=== PATIENT | male | born 1970 | race Caucasian/White ===

== ENCOUNTER 2020-02-04 07:56 | Inpatient (IN) | payer OTHER, MEDICAID, SELFPAY ==
[~2020-02-04] VITALS: Ht 172.7 cm; Wt 86.0 kg
[2020-02-04 08:01] VITALS: BP_SYST 119
[2020-02-04 09:32] LABS: BASOPHILS % (AUTO) 0.4 % (0.0-2.0); EOSINOPHILS % (AUTO) 0.4 % (0.0-4.0); HEMATOCRIT 28.1 % (36-54); HEMOGLOBIN 9.6 g/dL (14.0-18.0); LYMPHOCYTES # (AUTO) 0.8 K/uL (1.0-5.5); LYMPHOCYTES % (AUTO) 8.3 % (20.5-51.5); MEAN CORPUSCULAR HEMOGLOBIN 30 pg (27-31); MEAN CORPUSCULAR HGB CONC 34 % (32-36); MEAN CORPUSCULAR VOLUME 87 fL (79.0-98.0); MONOCYTES # (AUTO) 0.6 K/uL (0.0-1.0); MONOCYTES % (AUTO) 6.1 % (1.7-9.3); NEUTROPHILS # (AUTO) 8.1 K/uL (1.8-7.7); NEUTROPHILS % (AUTO) 84.8 % (40.0-70.0); PLATELET COUNT (AUTO) 177 K/uL (130-430); RED BLOOD CELL COUNT(AUTO) 3.22 MIL/uL (4.2-6.2); RED CELL DISTRIBUTION WIDTH 22.2 % (9.0-15.0); WHITE BLOOD COUNT (AUTO) 9.6 K/uL (4.8-10.8)
[2020-02-04 09:45] LABS: CALCIUM 7.3 mg/dL (8.4-11.0); CREATININE 2.43 mg/dL (0.55-1.30)
[2020-02-04 09:53] LABS: ALBUMIN 2.2 g/dL (3.4-4.8); TOTAL BILIRUBIN 0.2 mg/dL (0.0-1.0)
[2020-02-04 09:59] LABS: C-REACTIVE PROTEIN QUANT 13.7 mg/dL (0-0.5)
[2020-02-04] MEDS ORDERED: cefTRIAXone 1 GM in D5W 50 ML IV ONE (10:00)
[2020-02-04] MEDS ORDERED: cefTRIAXone 1 GM VIAL ONE (10:46)
[2020-02-04] MEDS ORDERED: humulin R (11:00)
[2020-02-04] MEDS ORDERED: hydrocodone PO (11:00)
[2020-02-04] MEDS ORDERED: BRIM10DR12 EACH EYE (11:00)
[2020-02-04] MEDS ORDERED: FER300L PO (11:00)
[2020-02-04] MEDS ORDERED: DORZ10DR9 LEFT EYE (11:00)
[2020-02-04] MEDS ORDERED: CAT.1 PO (11:00)
[2020-02-04] MEDS ORDERED: INSU100I26 SQ (11:00)
[2020-02-04] MEDS ORDERED: LIP20 PO (11:00)
[2020-02-04] MEDS ORDERED: NEU400 PO (11:00)
[2020-02-04] MEDS ORDERED: MELA3TAB64 PO (11:00)
[2020-02-04] MEDS ORDERED: ACETAMINOPHEN 500 MG TABLET PO ONE (11:15)
[2020-02-04] MEDS ORDERED: PIPERACILLIN/TAZO 4.5GM/DEX-IS 100 ML IV SCH (12:00)
[2020-02-04 12:20] VITALS: BP_SYST 145
[2020-02-04] MEDS ORDERED: MORPHINE SULFATE 10 MG/ML VIAL IVP ONE (13:30)
[2020-02-04] MEDS ORDERED: AZITHROMYCIN 500 MG in NS 250 ML IV ONE (13:30)
[2020-02-04] MEDS ORDERED: HYDROXYCHLOROQUINE SULFATE 200 MG TABLET PO SCH (13:30)
[2020-02-04] MEDS: BRIMONIDINE TARTRATE 0.2% 5 mL EYE DROPS EACH EYE SCH ×2 (13:59→20:50)
[2020-02-04] MEDS: HYDROXYCHLOROQUINE SULFATE 200 MG TABLET PO SCH ×2 (14:13→21:21)
[2020-02-04] MEDS ORDERED: ACETAMINOPHEN 325 MG TABLET PO PRN (14:15)
[2020-02-04] MEDS: GABAPENTIN 300 MG CAPSULE PO SCH ×2 (15:18→20:43)
[2020-02-04] MEDS: NACL 0.9% 1,000 ML IV SCH (15:18)
[2020-02-04] MEDS: cloNIDine HCL 0.1 MG TABLET PO SCH ×2 (15:22→20:44)
[2020-02-04 16:00] VITALS: BP_SYST 132
[2020-02-04 16:21] LABS: C-REACTIVE PROTEIN QUANT 15.5 mg/dL (0-0.5)
[2020-02-04] MEDS ORDERED: INSULIN REGULAR, HUMAN 100 UNITS/ML, 10 ML VIAL SUBCUT SCH (17:00)
[2020-02-04] MEDS: METOCLOPRAMIDE HCL 10 MG/2 ML VIAL IVP SCH ×2 (17:59→23:50)
[2020-02-04] MEDS: PIPERACILLIN/TAZO 2.25G/DEX-IS 50 ML IV SCH ×2 (17:59→23:49)
[2020-02-04] MEDS: ACETAMINOPHEN WITH CODEINE 12.5 ML UDC PO PRN (18:15)
[2020-02-04] MEDS: INSULIN REGULAR, HUMAN 100 UNITS/ML, 10 ML VIAL (humuLIN R) SUBCUT PRN ×2 (18:21→21:22)
[2020-02-04 20:00] VITALS: BP_SYST 132
[2020-02-04] MEDS: FERROUS SULFATE 300 MG/5 ML UDC PO SCH (20:43)
[2020-02-04] MEDS: LINEZOLID 300 ML IV SCH (20:43)
[2020-02-04] MEDS: ATORVASTATIN 20 MG TABLET PO SCH (20:43)
[2020-02-04] MEDS: MELATONIN 3 MG TABLET PO SCH (20:44)
[2020-02-04] MEDS: DORZOLAMIDE 2% OPHTHALMIC SOLN 5ML OP SCH (21:03)
[2020-02-04] MEDS: INSULIN GLARGINE 100 UNITS/ML 10 ML VIAL SUBCUT SCH (21:21)
[2020-02-04] MEDS: MORPHINE 2 MG/ML INJ. SYRINGE IVP PRN (23:32)
[2020-02-05] VITALS: BP_SYST 106
[2020-02-05] MEDS: MORPHINE 2 MG/ML INJ. SYRINGE IVP PRN ×4 (02:51→21:49)
[2020-02-05] MEDS: NACL 0.9% 1,000 ML IV SCH ×2 (03:20→09:12)
[2020-02-05 04:43] LABS: BILIRUBIN,URINE NEGATIVE (NEGATIVE); BLOOD, URINE 2+ (NEGATIVE); CLARITY/URINE CLEAR (CLEAR); COLOR,URINE YELLOW (YELLOW); GLUCOSE,URINE 1+ (NEGATIVE); KETONES,URINE NEGATIVE (NEGATIVE); LEUKOCYTE ESTERASE ,URINE NEGATIVE (NEGATIVE); NITRITE, URINE NEGATIVE (NEGATIVE); PROTEIN URINE 3+ (NEGATIVE); UROBILINOGEN,URINE 0.2 (0.2-1.0)
[2020-02-05 04:49] LABS: BACTERIA,URINE FEW /HPF (None Seen); WBC,URINE 0-3 /HPF (0-3)
[2020-02-05] MEDS: PIPERACILLIN/TAZO 2.25G/DEX-IS 50 ML IV SCH ×3 (06:00→17:11)
[2020-02-05] MEDS: METOCLOPRAMIDE HCL 10 MG/2 ML VIAL IVP SCH ×3 (06:00→17:11)
[2020-02-05 08:00] VITALS: BP_SYST 95
[2020-02-05 08:25] LABS: BASOPHILS % (AUTO) 0.1 % (0.0-2.0); EOSINOPHILS % (AUTO) 0.2 % (0.0-4.0); HEMOGLOBIN 7.3 g/dL (14.0-18.0); LYMPHOCYTES # (AUTO) 0.9 K/uL (1.0-5.5); LYMPHOCYTES % (AUTO) 20.3 % (20.5-51.5); MEAN CORPUSCULAR HEMOGLOBIN 29 pg (27-31); MEAN CORPUSCULAR HGB CONC 33 % (32-36); MEAN CORPUSCULAR VOLUME 88 fL (79.0-98.0); MONOCYTES # (AUTO) 0.4 K/uL (0.0-1.0); MONOCYTES % (AUTO) 9.1 % (1.7-9.3); NEUTROPHILS % (AUTO) 70.3 % (40.0-70.0); PLATELET COUNT (AUTO) 169 K/uL (130-430); RED BLOOD CELL COUNT(AUTO) 2.48 MIL/uL (4.2-6.2); WHITE BLOOD COUNT (AUTO) 4.3 K/uL (4.8-10.8)
[2020-02-05 08:45] LABS: HEMATOCRIT 21.8 % (36-54)
[2020-02-05 08:46] LABS: RED CELL DISTRIBUTION WIDTH 22.1 % (9.0-15.0)
[2020-02-05 08:48] LABS: ALBUMIN 1.6 g/dL (3.4-4.8); CREATININE 2.78 mg/dL (0.55-1.30); PHOSPHORUS 4.7 mg/dL (2.7-4.5); POTASSIUM 4.4 mmol/L (3.5-5.1); TOTAL BILIRUBIN 0.1 mg/dL (0.0-1.0)
[2020-02-05 08:57] LABS: URIC ACID 7.8 mg/dL (2.4-7.0)
[2020-02-05] MEDS: cloNIDine HCL 0.1 MG TABLET PO SCH ×3 (09:00→21:00)
[2020-02-05 09:05] LABS: CALCIUM 6.3 mg/dL (8.4-11.0)
[2020-02-05] MEDS: LINEZOLID 300 ML IV SCH ×2 (09:13→21:47)
[2020-02-05] MEDS: FERROUS SULFATE 300 MG/5 ML UDC PO SCH ×2 (09:13→21:48)
[2020-02-05] MEDS: GABAPENTIN 300 MG CAPSULE PO SCH ×3 (09:14→21:48)
[2020-02-05] MEDS: HYDROXYCHLOROQUINE SULFATE 200 MG TABLET PO SCH ×2 (09:14→21:00)
[2020-02-05] MEDS: INSULIN GLARGINE 100 UNITS/ML 10 ML VIAL SUBCUT SCH ×2 (09:15→21:51)
[2020-02-05] MEDS: BRIMONIDINE TARTRATE 0.2% 5 mL EYE DROPS EACH EYE SCH ×2 (09:16→21:00)
[2020-02-05] MEDS: DORZOLAMIDE 2% OPHTHALMIC SOLN 5ML OP SCH ×2 (09:17→21:00)
[2020-02-05 09:43] LABS: BASOPHILS % (AUTO) 0.5 % (0.0-2.0); EOSINOPHILS % (AUTO) 0.3 % (0.0-4.0); HEMATOCRIT 22.1 % (36-54); HEMOGLOBIN 7.4 g/dL (14.0-18.0); LYMPHOCYTES # (AUTO) 0.9 K/uL (1.0-5.5); LYMPHOCYTES % (AUTO) 21.1 % (20.5-51.5); MEAN CORPUSCULAR HEMOGLOBIN 29 pg (27-31); MEAN CORPUSCULAR HGB CONC 33 % (32-36); MEAN CORPUSCULAR VOLUME 88 fL (79.0-98.0); MONOCYTES # (AUTO) 0.4 K/uL (0.0-1.0); MONOCYTES % (AUTO) 10.5 % (1.7-9.3); NEUTROPHILS # (AUTO) 2.8 K/uL (1.8-7.7); NEUTROPHILS % (AUTO) 67.6 % (40.0-70.0); PLATELET COUNT (AUTO) 165 K/uL (130-430); RED BLOOD CELL COUNT(AUTO) 2.51 MIL/uL (4.2-6.2); RED CELL DISTRIBUTION WIDTH 22.4 % (9.0-15.0); WHITE BLOOD COUNT (AUTO) 4.2 K/uL (4.8-10.8)
[2020-02-05 10:10] LABS: ALBUMIN 1.6 g/dL (3.4-4.8); CREATININE 2.93 mg/dL (0.55-1.30); POTASSIUM 4.5 mmol/L (3.5-5.1); TOTAL BILIRUBIN 0.3 mg/dL (0.0-1.0)
[2020-02-05 10:14] LABS: CALCIUM 6.4 mg/dL (8.4-11.0)
[2020-02-05] MEDS: AZITHROMYCIN 250 MG in NS 250 ML IV SCH (11:28)
[2020-02-05] MEDS: INSULIN REGULAR, HUMAN 100 UNITS/ML, 10 ML VIAL (humuLIN R) SUBCUT PRN ×3 (11:47→21:53)
[2020-02-05 12:10] VITALS: BP_SYST 130
[2020-02-05 13:34] LABS: PROTHROMBIN TIME 9.6 SECS (9.5-12.5)
[2020-02-05] MEDS ORDERED: FOLIC ACID 1 MG TABLET PO ONE (16:30)
[2020-02-05 16:54] VITALS: BP_SYST 124
[2020-02-05] MEDS: EPOETIN ALFA 10,000 UNITS/ML VIAL SUBCUT SCH (17:10)
[2020-02-05 20:00] VITALS: BP_SYST 142
[2020-02-05] MEDS ORDERED: BALSAM PERU/CASTOR OIL 60 GM OINT...G. TP ONE (21:00)
[2020-02-05 21:22] LABS: BILIRUBIN,URINE NEGATIVE (NEGATIVE); BLOOD, URINE 1+ (NEGATIVE); CLARITY/URINE CLEAR (CLEAR); COLOR,URINE YELLOW (YELLOW); GLUCOSE,URINE TRACE (NEGATIVE); KETONES,URINE NEGATIVE (NEGATIVE); LEUKOCYTE ESTERASE ,URINE NEGATIVE (NEGATIVE); NITRITE, URINE NEGATIVE (NEGATIVE); PH,URINE 6.5 (5.0-8.0); PROTEIN URINE 3+ (NEGATIVE); UROBILINOGEN,URINE 0.2 (0.2-1.0)
[2020-02-05 21:26] LABS: BACTERIA,URINE FEW /HPF (None Seen); FINE GRANULAR CASTS,URINE 0-10 /LPF (None Seen); RBC,URINE 0-3 /HPF (0-3); WBC,URINE 0-3 /HPF (0-3)
[2020-02-05] MEDS: ATORVASTATIN 20 MG TABLET PO SCH (21:48)
[2020-02-05] MEDS: MELATONIN 3 MG TABLET PO SCH (21:49)
[2020-02-06] VITALS (9 sets, daily range): BP systolic 108–155
[2020-02-06] MEDS: PIPERACILLIN/TAZO 2.25G/DEX-IS 50 ML IV SCH ×4 (00:35→18:00)
[2020-02-06] MEDS: METOCLOPRAMIDE HCL 10 MG/2 ML VIAL IVP SCH ×4 (00:36→18:05)
[2020-02-06] MEDS: ACETAMINOPHEN WITH CODEINE 12.5 ML UDC PO PRN ×3 (00:47→20:07)
[2020-02-06] MEDS: MORPHINE 2 MG/ML INJ. SYRINGE IVP PRN ×4 (03:30→21:37)
[2020-02-06] MEDS: NACL 0.9% 1,000 ML IV SCH (06:09)
[2020-02-06 06:24] LABS: CREATININE, URINE 69.9 mg/dL (Not Estab.)
[2020-02-06 07:00] LABS: BASOPHILS % (AUTO) 0.5 % (0.0-2.0); EOSINOPHILS % (AUTO) 0.3 % (0.0-4.0); HEMATOCRIT 27.1 % (36-54); HEMOGLOBIN 9.1 g/dL (14.0-18.0); LYMPHOCYTES # (AUTO) 1.5 K/uL (1.0-5.5); LYMPHOCYTES % (AUTO) 25.3 % (20.5-51.5); MEAN CORPUSCULAR HEMOGLOBIN 30 pg (27-31); MEAN CORPUSCULAR HGB CONC 34 % (32-36); MEAN CORPUSCULAR VOLUME 88 fL (79.0-98.0); MONOCYTES # (AUTO) 0.3 K/uL (0.0-1.0); MONOCYTES % (AUTO) 5.7 % (1.7-9.3); NEUTROPHILS % (AUTO) 68.2 % (40.0-70.0); PLATELET COUNT (AUTO) 204 K/uL (130-430); RED BLOOD CELL COUNT(AUTO) 3.07 MIL/uL (4.2-6.2); RED CELL DISTRIBUTION WIDTH 20.9 % (9.0-15.0); RETICULOCYTE COUNT 0.9 % (0.5-1.5); WHITE BLOOD COUNT (AUTO) 5.9 K/uL (4.8-10.8)
[2020-02-06 07:07] LABS: ALBUMIN 1.7 g/dL (3.4-4.8); CREATININE 2.8 mg/dL (0.55-1.30); POTASSIUM 4.2 mmol/L (3.5-5.1); TOTAL BILIRUBIN 0.3 mg/dL (0.0-1.0)
[2020-02-06 07:28] LABS: TOTAL IRON BIND. CAPACITY 194 ug/dL (250-450)
[2020-02-06 08:29] LABS: CALCIUM 6.6 mg/dL (8.4-11.0)
[2020-02-06] MEDS ORDERED: BALSAM PERU/CASTOR OIL 60 GM OINT...G. TP SCH (09:00)
[2020-02-06] MEDS: BALSAM PERU/CASTOR OIL 60 GM OINT...G. TP SCH (09:00)
[2020-02-06] MEDS: HYDROXYCHLOROQUINE SULFATE 200 MG TABLET PO SCH ×2 (09:00→22:43)
[2020-02-06] MEDS: INSULIN GLARGINE 100 UNITS/ML 10 ML VIAL SUBCUT SCH ×2 (09:08→22:21)
[2020-02-06] MEDS: FERROUS SULFATE 300 MG/5 ML UDC PO SCH ×2 (09:10→21:38)
[2020-02-06] MEDS: GABAPENTIN 300 MG CAPSULE PO SCH ×3 (09:11→22:27)
[2020-02-06] MEDS: FOLIC ACID 1 MG TABLET PO SCH (09:11)
[2020-02-06] MEDS: cloNIDine HCL 0.1 MG TABLET PO SCH ×3 (09:13→21:39)
[2020-02-06] MEDS: LINEZOLID 300 ML IV SCH ×2 (09:13→21:49)
[2020-02-06] MEDS: DORZOLAMIDE 2% OPHTHALMIC SOLN 5ML OP SCH ×2 (09:17→21:47)
[2020-02-06] MEDS: BRIMONIDINE TARTRATE 0.2% 5 mL EYE DROPS EACH EYE SCH ×2 (09:17→21:47)
[2020-02-06] MEDS: AZITHROMYCIN 250 MG in NS 250 ML IV SCH (11:11)
[2020-02-06] MEDS: INSULIN REGULAR, HUMAN 100 UNITS/ML, 10 ML VIAL (humuLIN R) SUBCUT PRN ×2 (12:09→22:59)
[2020-02-06 12:28] LABS: MICROALBUMIN URINE RANDOM 3442.1 ug/ml (NOT ESTABLISHED)
[2020-02-06 13:56] LABS: URINE SODIUM, RANDOM 39 mmol/L (40-220)
[2020-02-06] MEDS ORDERED: ALBUTEROL MDI INHALATION 8 GM INH INH PRN (15:00)
[2020-02-06] MEDS: ALBUTEROL MDI INHALATION 8 GM INH INH SCH ×2 (15:55→21:46)
[2020-02-06] MEDS: ATORVASTATIN 20 MG TABLET PO SCH (21:38)
[2020-02-06] MEDS: MELATONIN 3 MG TABLET PO SCH (22:27)
[2020-02-07] VITALS (31 sets, daily range): BP systolic 56–196
[2020-02-07] MEDS: PIPERACILLIN/TAZO 2.25G/DEX-IS 50 ML IV SCH ×5 (00:14→23:37)
[2020-02-07] MEDS: METOCLOPRAMIDE HCL 10 MG/2 ML VIAL IVP SCH ×5 (00:15→23:37)
[2020-02-07] MEDS: NACL 0.9% 1,000 ML IV SCH ×3 (00:16→21:12)
[2020-02-07] MEDS: ALBUTEROL MDI INHALATION 8 GM INH INH SCH ×4 (02:14→21:03)
[2020-02-07] MEDS ORDERED: KETAMINE 30 MG/3 ML SYRINGE ONE ×2 (03:22→03:33)
[2020-02-07] MEDS: INSULIN REGULAR, HUMAN 100 UNITS/ML, 10 ML VIAL (humuLIN R) SUBCUT PRN ×2 (05:52→18:10)
[2020-02-07 07:19] LABS: BASOPHILS % (AUTO) 0.2 % (0.0-2.0); HEMATOCRIT 27.5 % (36-54); HEMOGLOBIN 9.2 g/dL (14.0-18.0); LYMPHOCYTES # (AUTO) 0.3 K/uL (1.0-5.5); LYMPHOCYTES % (AUTO) 5.5 % (20.5-51.5); MEAN CORPUSCULAR HEMOGLOBIN 29 pg (27-31); MEAN CORPUSCULAR HGB CONC 33 % (32-36); MEAN CORPUSCULAR VOLUME 88 fL (79.0-98.0); MONOCYTES # (AUTO) 0.5 K/uL (0.0-1.0); MONOCYTES % (AUTO) 7.9 % (1.7-9.3); NEUTROPHILS # (AUTO) 5.3 K/uL (1.8-7.7); NEUTROPHILS % (AUTO) 86.4 % (40.0-70.0); PLATELET COUNT (AUTO) 230 K/uL (130-430); RED BLOOD CELL COUNT(AUTO) 3.13 MIL/uL (4.2-6.2); RED CELL DISTRIBUTION WIDTH 21.5 % (9.0-15.0); WHITE BLOOD COUNT (AUTO) 6.1 K/uL (4.8-10.8)
[2020-02-07 07:42] LABS: PROTHROMBIN TIME 9.9 SECS (9.5-12.5)
[2020-02-07 07:53] LABS: CREATININE 3.46 mg/dL (0.55-1.30); POTASSIUM 4.6 mmol/L (3.5-5.1); THYROID STIMULATING HORMONE 1.39 uIu/mL (0.34-4.82)
[2020-02-07 07:56] LABS: CALCIUM 6.8 mg/dL (8.4-11.0)
[2020-02-07 08:09] LABS: FOLATE (FOLIC ACID) 17.9 ng/mL (>3.0)
[2020-02-07] MEDS: PANTOPRAZOLE SODIUM 40 MG/VIAL (PROTONIX) IVP SCH (08:20)
[2020-02-07] MEDS: FOLIC ACID 1 MG TABLET PO SCH (08:20)
[2020-02-07] MEDS: FERROUS SULFATE 300 MG/5 ML UDC PO SCH ×2 (08:20→20:58)
[2020-02-07] MEDS: GABAPENTIN 300 MG CAPSULE PO SCH ×3 (08:20→20:58)
[2020-02-07] MEDS ORDERED: NOREPINEPHRINE 4 MG/4 ML VIAL IV ONE (08:20)
[2020-02-07] MEDS: BRIMONIDINE TARTRATE 0.2% 5 mL EYE DROPS EACH EYE SCH ×2 (08:21→21:52)
[2020-02-07] MEDS: DORZOLAMIDE 2% OPHTHALMIC SOLN 5ML OP SCH ×2 (08:21→21:52)
[2020-02-07] MEDS: LINEZOLID 300 ML IV SCH ×2 (08:22→21:12)
[2020-02-07] MEDS: cloNIDine HCL 0.1 MG TABLET PO SCH ×3 (08:25→21:00)
[2020-02-07 08:29] LABS: C-REACTIVE PROTEIN QUANT 20.2 mg/dL (0-0.5)
[2020-02-07] MEDS: BALSAM PERU/CASTOR OIL 60 GM OINT...G. TP SCH (09:00)
[2020-02-07] MEDS: INSULIN GLARGINE 100 UNITS/ML 10 ML VIAL SUBCUT SCH ×2 (09:00→21:00)
[2020-02-07 09:13] LABS: FIBRINOGEN 548 mg/dL (200-400)
[2020-02-07 09:21] LABS: ERYTHROCYTE SEDIMENTATION RATE 105 MM/HR (0-15)
[2020-02-07] MEDS: MORPHINE 2 MG/ML INJ. SYRINGE IVP PRN ×2 (09:21→22:29)
[2020-02-07] MEDS ORDERED: COMMUNICATION ORDER XX ONE (10:30)
[2020-02-07] MEDS ORDERED: NS IV PRN ×2 (11:00→11:02)
[2020-02-07] MEDS ORDERED: MIDAZOLAM HCL IV PRN ×2 (11:00→11:02)
[2020-02-07] MEDS: HYDROXYCHLOROQUINE SULFATE 200 MG TABLET PO SCH ×2 (11:27→21:53)
[2020-02-07] MEDS: AZITHROMYCIN 250 MG in NS 250 ML IV SCH (11:28)
[2020-02-07] MEDS ORDERED: ROCURONIUM BROMIDE 10 MG/ML (ZEMURON) IV ONE (12:08)
[2020-02-07] MEDS: ATORVASTATIN 20 MG TABLET PO SCH (20:58)
[2020-02-07] MEDS: MELATONIN 3 MG TABLET PO SCH (21:52)
[2020-02-07] MEDS: fentaNYL CITRATE/PF 100 MCG/2 ML AMP IVP PRN (23:23)
[2020-02-07] MEDS: PROPOFOL DRIP 100 ML IV PRN (23:30)
[2020-02-08] VITALS (32 sets, daily range): BP systolic 95–187
[2020-02-08] MEDS: fentaNYL CITRATE/PF 100 MCG/2 ML AMP IVP PRN ×3 (02:33→05:57)
[2020-02-08] MEDS: ALBUTEROL MDI INHALATION 8 GM INH INH SCH ×4 (03:03→20:30)
[2020-02-08] MEDS ORDERED: hydrALAZINE HCL 20 MG/ML VIAL ONE (03:14)
[2020-02-08] MEDS: PROPOFOL DRIP 100 ML IV PRN ×7 (03:43→23:21)
[2020-02-08] MEDS ORDERED: ROCURONIUM BROMIDE 10 MG/ML (ZEMURON) IV ONE ×5 (03:45→17:00)
[2020-02-08] MEDS: LORazepam 2 MG/ML VIAL IVP PRN ×2 (04:07→05:57)
[2020-02-08 06:08] LABS: HEMOGLOBIN 9.6 g/dL (14.0-18.0); WHITE BLOOD COUNT (AUTO) 8.8 K/uL (4.8-10.8)
[2020-02-08 06:16] LABS: BASOPHILS % (AUTO) 0.1 % (0.0-2.0); EOSINOPHILS % (AUTO) 0.2 % (0.0-4.0); HEMATOCRIT 28.8 % (36-54); LYMPHOCYTES # (AUTO) 0.5 K/uL (1.0-5.5); LYMPHOCYTES % (AUTO) 5.5 % (20.5-51.5); MEAN CORPUSCULAR HEMOGLOBIN 30 pg (27-31); MEAN CORPUSCULAR HGB CONC 33 % (32-36); MEAN CORPUSCULAR VOLUME 90 fL (79.0-98.0); MONOCYTES # (AUTO) 0.5 K/uL (0.0-1.0); NEUTROPHILS # (AUTO) 7.8 K/uL (1.8-7.7); NEUTROPHILS % (AUTO) 88.2 % (40.0-70.0); PLATELET COUNT (AUTO) 244 K/uL (130-430); RED BLOOD CELL COUNT(AUTO) 3.22 MIL/uL (4.2-6.2); RED CELL DISTRIBUTION WIDTH 22.1 % (9.0-15.0)
[2020-02-08] MEDS: PIPERACILLIN/TAZO 2.25G/DEX-IS 50 ML IV SCH ×3 (06:38→18:38)
[2020-02-08] MEDS: METOCLOPRAMIDE HCL 10 MG/2 ML VIAL IVP SCH ×3 (06:38→19:00)
[2020-02-08 07:33] LABS: ALBUMIN 1.5 g/dL (3.4-4.8); CREATININE 4.04 mg/dL (0.55-1.30); POTASSIUM 4.6 mmol/L (3.5-5.1); TOTAL BILIRUBIN 0.4 mg/dL (0.0-1.0)
[2020-02-08 08:08] LABS: CORTISOL (SERUM) 9.9 ug/dL (.)
[2020-02-08] MEDS: GABAPENTIN 300 MG CAPSULE PO SCH ×3 (08:30→20:45)
[2020-02-08] MEDS: PANTOPRAZOLE SODIUM 40 MG/VIAL (PROTONIX) IVP SCH ×2 (08:30→20:40)
[2020-02-08] MEDS: FOLIC ACID 1 MG TABLET PO SCH (08:30)
[2020-02-08] MEDS: FERROUS SULFATE 300 MG/5 ML UDC PO SCH ×2 (08:30→20:44)
[2020-02-08] MEDS: cloNIDine HCL 0.1 MG TABLET PO SCH ×3 (08:31→20:44)
[2020-02-08] MEDS: INSULIN GLARGINE 100 UNITS/ML 10 ML VIAL SUBCUT SCH ×2 (08:32→21:00)
[2020-02-08] MEDS: LINEZOLID 300 ML IV SCH ×2 (08:33→20:40)
[2020-02-08] MEDS: BALSAM PERU/CASTOR OIL 60 GM OINT...G. TP SCH (08:55)
[2020-02-08] MEDS: DORZOLAMIDE 2% OPHTHALMIC SOLN 5ML OP SCH ×2 (08:55→20:43)
[2020-02-08] MEDS: BRIMONIDINE TARTRATE 0.2% 5 mL EYE DROPS EACH EYE SCH ×2 (08:55→20:48)
[2020-02-08] MEDS: HYDROXYCHLOROQUINE SULFATE 200 MG TABLET PO SCH ×2 (08:56→20:45)
[2020-02-08] MEDS: AZITHROMYCIN 250 MG in NS 250 ML IV SCH (11:15)
[2020-02-08] MEDS: NACL 0.9% 1,000 ML IV SCH (12:10)
[2020-02-08] MEDS ORDERED: FUROSEMIDE 40 MG/4 ML VIAL IVP ONE (12:30)
[2020-02-08] MEDS ORDERED: CALCIUM GLUCONATE 2 GM in NS 100 ML IV ONE (12:30)
[2020-02-08] MEDS: NS IV SCH ×2 (16:15→19:00)
[2020-02-08] MEDS ORDERED: COMMUNICATION ORDER XX ONE (16:15)
[2020-02-08] MEDS: VECURONIUM BROMIDE IV SCH ×2 (16:15→19:00)
[2020-02-08] MEDS ORDERED: SODIUM BICARBONATE 8.4% VIAL 50 MEQ/50 ML VIAL INJ ONE (18:15)
[2020-02-08] MEDS ORDERED: SODIUM BICARBONATE 8.4% VIAL 50 MEQ/50 ML VIAL ONE (18:29)
[2020-02-08] MEDS: SODIUM BICARBONATE 8.4% JECT 150 MEQ in D5W 1,000 ML IV SCH (18:39)
[2020-02-08] MEDS ORDERED: SODIUM BICARBONATE 8.4% JECT 50 MEQ/50 ML SYRINGE ONE ×2 (18:47→23:51)
[2020-02-08] MEDS: EPOETIN ALFA 10,000 UNITS/ML VIAL SUBCUT SCH (18:57)
[2020-02-08] MEDS: ATORVASTATIN 20 MG TABLET PO SCH (20:44)
[2020-02-08] MEDS: MELATONIN 3 MG TABLET PO SCH (20:45)
[2020-02-08] MEDS: MORPHINE I.V. DRIP 100 ML IV PRN (23:23)
[2020-02-08] MEDS: HEPARIN SODIUM,PORCINE 5000 UNITS/ML VIAL SUBCUT SCH (23:25)
[2020-02-08] MEDS ORDERED: SODIUM BICARBONATE 8.4% JECT 50 MEQ/50 ML SYRINGE IVP ONE (23:30)
[2020-02-09] VITALS (34 sets, daily range): BP systolic 98–177
[2020-02-09] MEDS: PIPERACILLIN/TAZO 2.25G/DEX-IS 50 ML IV SCH ×5 (00:06→23:42)
[2020-02-09] MEDS: METOCLOPRAMIDE HCL 10 MG/2 ML VIAL IVP SCH ×5 (00:06→23:44)
[2020-02-09] MEDS: ALBUTEROL MDI INHALATION 8 GM INH INH SCH ×4 (01:41→20:33)
[2020-02-09] MEDS: SODIUM BICARBONATE 8.4% JECT 150 MEQ in D5W 1,000 ML IV SCH ×4 (02:26→18:04)
[2020-02-09] MEDS: PROPOFOL DRIP 100 ML IV PRN ×5 (02:30→23:19)
[2020-02-09] MEDS: NS IV SCH ×5 (03:30→23:44)
[2020-02-09] MEDS: VECURONIUM BROMIDE IV SCH ×5 (03:30→23:44)
[2020-02-09] MEDS: HEPARIN SODIUM,PORCINE 5000 UNITS/ML VIAL SUBCUT SCH (05:22)
[2020-02-09 05:38] LABS: MONOCYTES # (AUTO) 0.5 K/uL (0.0-1.0); RED CELL DISTRIBUTION WIDTH 21.5 % (9.0-15.0); WHITE BLOOD COUNT (AUTO) 5.5 K/uL (4.8-10.8)
[2020-02-09 05:45] LABS: BASOPHILS % (AUTO) 0.2 % (0.0-2.0); EOSINOPHILS % (AUTO) 0.5 % (0.0-4.0); LYMPHOCYTES # (AUTO) 0.8 K/uL (1.0-5.5); LYMPHOCYTES % (AUTO) 15.2 % (20.5-51.5); MEAN CORPUSCULAR HEMOGLOBIN 30 pg (27-31); MEAN CORPUSCULAR HGB CONC 34 % (32-36); MEAN CORPUSCULAR VOLUME 88 fL (79.0-98.0); MONOCYTES % (AUTO) 9.6 % (1.7-9.3); NEUTROPHILS # (AUTO) 4.1 K/uL (1.8-7.7); NEUTROPHILS % (AUTO) 74.5 % (40.0-70.0); PLATELET COUNT (AUTO) 204 K/uL (130-430); RED BLOOD CELL COUNT(AUTO) 2.33 MIL/uL (4.2-6.2)
[2020-02-09 05:54] LABS: CREATININE 5.25 mg/dL (0.55-1.30); POTASSIUM 4.1 mmol/L (3.5-5.1)
[2020-02-09 06:27] LABS: CALCIUM 6.6 mg/dL (8.4-11.0)
[2020-02-09 06:29] LABS: HEMATOCRIT 20.5 % (36-54); HEMOGLOBIN 6.9 g/dL (14.0-18.0)
[2020-02-09] MEDS: INSULIN REGULAR, HUMAN 100 UNITS/ML, 10 ML VIAL (humuLIN R) SUBCUT PRN ×3 (07:00→18:43)
[2020-02-09] MEDS: FERROUS SULFATE 300 MG/5 ML UDC PO SCH ×2 (08:45→21:01)
[2020-02-09] MEDS: PANTOPRAZOLE SODIUM 40 MG/VIAL (PROTONIX) IVP SCH ×2 (08:45→21:01)
[2020-02-09] MEDS: LINEZOLID 300 ML IV SCH ×2 (08:46→21:12)
[2020-02-09] MEDS: FOLIC ACID 1 MG TABLET PO SCH (08:46)
[2020-02-09] MEDS: cloNIDine HCL 0.1 MG TABLET PO SCH ×3 (08:46→21:00)
[2020-02-09] MEDS: GABAPENTIN 300 MG CAPSULE PO SCH ×3 (08:53→21:01)
[2020-02-09] MEDS ORDERED: ENOXAPARIN SODIUM 30 MG/0.3 ML SYRINGE SUBCUT SCH (09:00)
[2020-02-09] MEDS: INSULIN GLARGINE 100 UNITS/ML 10 ML VIAL SUBCUT SCH ×2 (09:00→21:00)
[2020-02-09] MEDS: BRIMONIDINE TARTRATE 0.2% 5 mL EYE DROPS EACH EYE SCH ×2 (09:22→21:02)
[2020-02-09] MEDS: BALSAM PERU/CASTOR OIL 60 GM OINT...G. TP SCH (09:22)
[2020-02-09] MEDS: DORZOLAMIDE 2% OPHTHALMIC SOLN 5ML OP SCH ×2 (09:22→21:07)
[2020-02-09] MEDS ORDERED: CALCIUM GLUCONATE 2 GM in NS 100 ML IV ONE (11:00)
[2020-02-09] MEDS: AZITHROMYCIN 250 MG in NS 250 ML IV SCH (11:31)
[2020-02-09] MEDS ORDERED: HEPARIN SODIUM,PORCINE 5000 UNITS/ML VIAL ONE ×2 (17:56→20:50)
[2020-02-09] MEDS: MELATONIN 3 MG TABLET PO SCH (21:00)
[2020-02-09] MEDS: ATORVASTATIN 20 MG TABLET PO SCH (21:01)
[2020-02-10] VITALS (37 sets, daily range): BP systolic 69–174
[2020-02-10] MEDS: ALBUTEROL MDI INHALATION 8 GM INH INH SCH ×4 (04:00→21:03)
[2020-02-10] MEDS: PROPOFOL DRIP 100 ML IV PRN ×4 (04:35→17:13)
[2020-02-10 05:49] LABS: BASOPHILS % (AUTO) 0.5 % (0.0-2.0); EOSINOPHILS # (AUTO) 0.1 K/uL (0.0-0.4); EOSINOPHILS % (AUTO) 2.4 % (0.0-4.0); LYMPHOCYTES # (AUTO) 0.6 K/uL (1.0-5.5); LYMPHOCYTES % (AUTO) 12.6 % (20.5-51.5); MEAN CORPUSCULAR HEMOGLOBIN 30 pg (27-31); MEAN CORPUSCULAR HGB CONC 35 % (32-36); MEAN CORPUSCULAR VOLUME 86 fL (79.0-98.0); MONOCYTES # (AUTO) 0.2 K/uL (0.0-1.0); NEUTROPHILS # (AUTO) 3.6 K/uL (1.8-7.7); NEUTROPHILS % (AUTO) 79.5 % (40.0-70.0); PLATELET COUNT (AUTO) 253 K/uL (130-430); RED BLOOD CELL COUNT(AUTO) 3.02 MIL/uL (4.2-6.2); RED CELL DISTRIBUTION WIDTH 19.7 % (9.0-15.0); WHITE BLOOD COUNT (AUTO) 4.5 K/uL (4.8-10.8)
[2020-02-10 06:07] LABS: CREATININE 4.05 mg/dL (0.55-1.30); PHOSPHORUS 6.1 mg/dL (2.7-4.5); POTASSIUM 3.4 mmol/L (3.5-5.1); TOTAL BILIRUBIN 0.7 mg/dL (0.0-1.0)
[2020-02-10 06:09] LABS: CALCIUM 6.5 mg/dL (8.4-11.0)
[2020-02-10] MEDS: METOCLOPRAMIDE HCL 10 MG/2 ML VIAL IVP SCH ×4 (06:25→23:27)
[2020-02-10] MEDS: PIPERACILLIN/TAZO 2.25G/DEX-IS 50 ML IV SCH ×4 (06:25→23:27)
[2020-02-10] MEDS: NS IV SCH ×5 (06:26→23:56)
[2020-02-10] MEDS: VECURONIUM BROMIDE IV SCH ×5 (06:26→23:56)
[2020-02-10] MEDS: INSULIN REGULAR, HUMAN 100 UNITS/ML, 10 ML VIAL (humuLIN R) SUBCUT PRN ×2 (07:00→21:59)
[2020-02-10] MEDS: SODIUM BICARBONATE 8.4% JECT 150 MEQ in D5W 1,000 ML IV SCH ×2 (08:59→17:10)
[2020-02-10] MEDS: LINEZOLID 300 ML IV SCH ×2 (08:59→21:00)
[2020-02-10] MEDS: cloNIDine HCL 0.1 MG TABLET PO SCH ×3 (09:00→20:59)
[2020-02-10] MEDS: FERROUS SULFATE 300 MG/5 ML UDC PO SCH ×2 (09:00→20:59)
[2020-02-10] MEDS: FOLIC ACID 1 MG TABLET PO SCH (09:01)
[2020-02-10] MEDS: GABAPENTIN 300 MG CAPSULE PO SCH ×3 (09:01→20:58)
[2020-02-10] MEDS: PANTOPRAZOLE SODIUM 40 MG/VIAL (PROTONIX) IVP SCH ×2 (09:01→21:10)
[2020-02-10] MEDS: INSULIN GLARGINE 100 UNITS/ML 10 ML VIAL SUBCUT SCH ×2 (09:04→22:00)
[2020-02-10] MEDS: BRIMONIDINE TARTRATE 0.2% 5 mL EYE DROPS EACH EYE SCH ×2 (10:11→21:25)
[2020-02-10] MEDS: DORZOLAMIDE 2% OPHTHALMIC SOLN 5ML OP SCH ×2 (10:11→21:26)
[2020-02-10] MEDS: BALSAM PERU/CASTOR OIL 60 GM OINT...G. TP SCH (10:18)
[2020-02-10] MEDS: MORPHINE I.V. DRIP 100 ML IV PRN (14:49)
[2020-02-10] MEDS ORDERED: POTASSIUM CHLORIDE 20 MEQ/PKT PACKET PO ONE (16:00)
[2020-02-10] MEDS: hydrALAZINE HCL 20 MG/ML VIAL IVP PRN (16:35)
[2020-02-10] MEDS: EPOETIN ALFA 10,000 UNITS/ML VIAL SUBCUT SCH (17:11)
[2020-02-10] MEDS: ATORVASTATIN 20 MG TABLET PO SCH (20:58)
[2020-02-10] MEDS: MELATONIN 3 MG TABLET PO SCH (21:00)
[2020-02-11] VITALS (36 sets, daily range): BP systolic 101–189
[2020-02-11] MEDS: PROPOFOL DRIP 100 ML IV PRN ×4 (02:26→21:29)
[2020-02-11] MEDS: SODIUM BICARBONATE 8.4% JECT 150 MEQ in D5W 1,000 ML IV SCH ×3 (02:27→17:17)
[2020-02-11] MEDS: NS IV SCH ×3 (03:23→20:42)
[2020-02-11] MEDS: VECURONIUM BROMIDE IV SCH ×3 (03:23→20:42)
[2020-02-11 04:13] LABS: HEPATITIS A AB, IgM Negative (Negative); HEPATITIS B CORE AB, IgM Negative (Negative); HEPATITIS B SURFACE AG Negative (Negative)
[2020-02-11] MEDS: ALBUTEROL MDI INHALATION 8 GM INH INH SCH ×2 (04:37→23:36)
[2020-02-11] MEDS: METOCLOPRAMIDE HCL 10 MG/2 ML VIAL IVP SCH ×4 (06:15→23:43)
[2020-02-11 06:18] LABS: BASOPHILS % (AUTO) 0.4 % (0.0-2.0); EOSINOPHILS # (AUTO) 0.1 K/uL (0.0-0.4); EOSINOPHILS % (AUTO) 3.7 % (0.0-4.0); HEMATOCRIT 25.3 % (36-54); HEMOGLOBIN 8.7 g/dL (14.0-18.0); LYMPHOCYTES # (AUTO) 0.5 K/uL (1.0-5.5); LYMPHOCYTES % (AUTO) 15.5 % (20.5-51.5); MEAN CORPUSCULAR HEMOGLOBIN 30 pg (27-31); MEAN CORPUSCULAR HGB CONC 34 % (32-36); MEAN CORPUSCULAR VOLUME 87 fL (79.0-98.0); MONOCYTES # (AUTO) 0.3 K/uL (0.0-1.0); MONOCYTES % (AUTO) 7.2 % (1.7-9.3); NEUTROPHILS # (AUTO) 2.6 K/uL (1.8-7.7); NEUTROPHILS % (AUTO) 73.2 % (40.0-70.0); PLATELET COUNT (AUTO) 237 K/uL (130-430); RED CELL DISTRIBUTION WIDTH 20.3 % (9.0-15.0); WHITE BLOOD COUNT (AUTO) 3.5 K/uL (4.8-10.8)
[2020-02-11 06:23] LABS: CREATININE 4.79 mg/dL (0.55-1.30); POTASSIUM 4.4 mmol/L (3.5-5.1)
[2020-02-11] MEDS: INSULIN REGULAR, HUMAN 100 UNITS/ML, 10 ML VIAL (humuLIN R) SUBCUT PRN ×3 (06:23→21:21)
[2020-02-11 06:29] LABS: CALCIUM 6.1 mg/dL (8.4-11.0)
[2020-02-11] MEDS: INSULIN GLARGINE 100 UNITS/ML 10 ML VIAL SUBCUT SCH ×2 (08:48→21:22)
[2020-02-11] MEDS: PANTOPRAZOLE SODIUM 40 MG/VIAL (PROTONIX) IVP SCH ×2 (08:52→20:40)
[2020-02-11] MEDS: FERROUS SULFATE 300 MG/5 ML UDC PO SCH ×2 (08:53→20:38)
[2020-02-11] MEDS: GABAPENTIN 300 MG CAPSULE PO SCH ×3 (08:53→20:39)
[2020-02-11] MEDS: FOLIC ACID 1 MG TABLET PO SCH (08:53)
[2020-02-11] MEDS: BALSAM PERU/CASTOR OIL 60 GM OINT...G. TP SCH (09:00)
[2020-02-11] MEDS: cloNIDine HCL 0.1 MG TABLET PO SCH (09:00)
[2020-02-11] MEDS: DORZOLAMIDE 2% OPHTHALMIC SOLN 5ML OP SCH ×2 (09:13→21:16)
[2020-02-11] MEDS: BRIMONIDINE TARTRATE 0.2% 5 mL EYE DROPS EACH EYE SCH ×2 (09:13→21:16)
[2020-02-11] MEDS: LINEZOLID 300 ML IV SCH ×2 (09:15→20:38)
[2020-02-11] MEDS ORDERED: amLODIPine BESYLATE 10 MG TABLET NG ONE (13:00)
[2020-02-11] MEDS ORDERED: hydrALAZINE HCL 20 MG/ML VIAL IVP PRN (13:00)
[2020-02-11] MEDS ORDERED: HEPARIN SODIUM,PORCINE 5000 UNITS/ML VIAL SUBCUT ONE (18:45)
[2020-02-11] MEDS ORDERED: HEPARIN SODIUM,PORCINE 5000 UNITS/ML VIAL ONE (18:57)
[2020-02-11] MEDS: ATORVASTATIN 20 MG TABLET PO SCH (20:39)
[2020-02-11] MEDS: MELATONIN 3 MG TABLET PO SCH (21:00)
[2020-02-12] VITALS (31 sets, daily range): BP systolic 107–194
[2020-02-12] MEDS: ALBUTEROL MDI INHALATION 8 GM INH INH SCH ×4 (03:03→22:32)
[2020-02-12] MEDS: METOCLOPRAMIDE HCL 10 MG/2 ML VIAL IVP SCH ×3 (05:27→17:07)
[2020-02-12] MEDS: SODIUM BICARBONATE 8.4% JECT 150 MEQ in D5W 1,000 ML IV SCH (05:27)
[2020-02-12 05:49] LABS: BASOPHILS % (AUTO) 0.1 % (0.0-2.0); EOSINOPHILS # (AUTO) 0.3 K/uL (0.0-0.4); EOSINOPHILS % (AUTO) 3.9 % (0.0-4.0); HEMATOCRIT 30.1 % (36-54); HEMOGLOBIN 10.3 g/dL (14.0-18.0); LYMPHOCYTES # (AUTO) 0.7 K/uL (1.0-5.5); LYMPHOCYTES % (AUTO) 10.4 % (20.5-51.5); MEAN CORPUSCULAR HEMOGLOBIN 30 pg (27-31); MEAN CORPUSCULAR HGB CONC 34 % (32-36); MEAN CORPUSCULAR VOLUME 87 fL (79.0-98.0); MONOCYTES # (AUTO) 0.3 K/uL (0.0-1.0); MONOCYTES % (AUTO) 4.5 % (1.7-9.3); NEUTROPHILS # (AUTO) 5.4 K/uL (1.8-7.7); NEUTROPHILS % (AUTO) 81.1 % (40.0-70.0); PLATELET COUNT (AUTO) 313 K/uL (130-430); RED BLOOD CELL COUNT(AUTO) 3.48 MIL/uL (4.2-6.2); RED CELL DISTRIBUTION WIDTH 20.4 % (9.0-15.0); WHITE BLOOD COUNT (AUTO) 6.6 K/uL (4.8-10.8)
[2020-02-12] MEDS: PROPOFOL DRIP 100 ML IV PRN ×3 (05:50→21:15)
[2020-02-12 06:14] LABS: CREATININE 4.08 mg/dL (0.55-1.30); POTASSIUM 3.3 mmol/L (3.5-5.1); TOTAL BILIRUBIN 0.6 mg/dL (0.0-1.0)
[2020-02-12 06:24] LABS: CALCIUM 6.7 mg/dL (8.4-11.0)
[2020-02-12] MEDS: INSULIN REGULAR, HUMAN 100 UNITS/ML, 10 ML VIAL (humuLIN R) SUBCUT PRN (06:44)
[2020-02-12] MEDS ORDERED: HEPARIN SODIUM,PORCINE 5000 UNITS/ML VIAL SUBCUT ONE (07:30)
[2020-02-12] MEDS: LINEZOLID 300 ML IV SCH ×2 (08:48→21:10)
[2020-02-12] MEDS: PANTOPRAZOLE SODIUM 40 MG/VIAL (PROTONIX) IVP SCH ×2 (08:49→21:12)
[2020-02-12] MEDS: FOLIC ACID 1 MG TABLET PO SCH (08:49)
[2020-02-12] MEDS: FERROUS SULFATE 300 MG/5 ML UDC PO SCH ×2 (08:49→21:10)
[2020-02-12] MEDS: GABAPENTIN 300 MG CAPSULE PO SCH ×3 (08:50→21:11)
[2020-02-12] MEDS: amLODIPine BESYLATE 10 MG TABLET NG SCH (08:50)
[2020-02-12] MEDS: DORZOLAMIDE 2% OPHTHALMIC SOLN 5ML OP SCH ×2 (08:51→21:16)
[2020-02-12] MEDS: BALSAM PERU/CASTOR OIL 60 GM OINT...G. TP SCH (08:51)
[2020-02-12] MEDS: BRIMONIDINE TARTRATE 0.2% 5 mL EYE DROPS EACH EYE SCH ×2 (08:51→21:15)
[2020-02-12] MEDS: INSULIN GLARGINE 100 UNITS/ML 10 ML VIAL SUBCUT SCH ×2 (08:54→21:00)
[2020-02-12] MEDS ORDERED: CALCIUM CHLORIDE 1 GM/10 ML DISP.SYRIN (14 mEq Ca++/SYR) IVP ONE (09:00)
[2020-02-12] MEDS: hydrALAZINE HCL 20 MG/ML VIAL IVP PRN (09:37)
[2020-02-12] MEDS ORDERED: D5NS 500 ML IV ONE (12:00)
[2020-02-12] MEDS ORDERED: POTASSIUM CHLORIDE 20 MEQ/PKT PACKET PO ONE (12:00)
[2020-02-12] MEDS: hydrALAZINE HCL 20 MG/ML VIAL IVP SCH ×2 (12:29→21:12)
[2020-02-12] MEDS: MORPHINE I.V. DRIP 100 ML IV PRN (12:36)
[2020-02-12] MEDS: EPOETIN ALFA 10,000 UNITS/ML VIAL SUBCUT SCH (17:07)
[2020-02-12] MEDS: ATORVASTATIN 20 MG TABLET PO SCH (21:11)
[2020-02-12] MEDS: MELATONIN 3 MG TABLET PO SCH (21:11)
[2020-02-12] MEDS: HEPARIN SODIUM,PORCINE 5000 UNITS/ML VIAL SUBCUT SCH (21:14)
[2020-02-12] MEDS ORDERED: DEXTROSE 50% JECT 50 ML DISP.SYRIN ONE (22:04)
[2020-02-13] VITALS (33 sets, daily range): BP systolic 72–149
[2020-02-13] MEDS: NS IV SCH (00:17)
[2020-02-13] MEDS: METOCLOPRAMIDE HCL 10 MG/2 ML VIAL IVP SCH ×5 (00:17→23:11)
[2020-02-13] MEDS: VECURONIUM BROMIDE IV SCH (00:17)
[2020-02-13] MEDS: hydrALAZINE HCL 20 MG/ML VIAL IVP SCH ×3 (04:06→19:52)
[2020-02-13] MEDS ORDERED: DEXTROSE 50% JECT 50 ML DISP.SYRIN ONE (06:20)
[2020-02-13 06:48] LABS: CREATININE 5.22 mg/dL (0.55-1.30)
[2020-02-13 06:54] LABS: BASOPHILS % (AUTO) 0.1 % (0.0-2.0); EOSINOPHILS # (AUTO) 0.2 K/uL (0.0-0.4); EOSINOPHILS % (AUTO) 2.6 % (0.0-4.0); HEMATOCRIT 28.7 % (36-54); HEMOGLOBIN 9.8 g/dL (14.0-18.0); LYMPHOCYTES # (AUTO) 0.9 K/uL (1.0-5.5); LYMPHOCYTES % (AUTO) 9.2 % (20.5-51.5); MEAN CORPUSCULAR HEMOGLOBIN 30 pg (27-31); MEAN CORPUSCULAR HGB CONC 34 % (32-36); MEAN CORPUSCULAR VOLUME 87 fL (79.0-98.0); MONOCYTES # (AUTO) 0.5 K/uL (0.0-1.0); MONOCYTES % (AUTO) 4.9 % (1.7-9.3); NEUTROPHILS % (AUTO) 83.2 % (40.0-70.0); PLATELET COUNT (AUTO) 328 K/uL (130-430); RED BLOOD CELL COUNT(AUTO) 3.29 MIL/uL (4.2-6.2); RED CELL DISTRIBUTION WIDTH 19.9 % (9.0-15.0); WHITE BLOOD COUNT (AUTO) 9.6 K/uL (4.8-10.8)
[2020-02-13 06:55] LABS: CALCIUM 6.7 mg/dL (8.4-11.0)
[2020-02-13] MEDS: HEPARIN SODIUM,PORCINE 5000 UNITS/ML VIAL SUBCUT SCH ×2 (08:53→20:24)
[2020-02-13] MEDS: amLODIPine BESYLATE 10 MG TABLET NG SCH (08:54)
[2020-02-13] MEDS: FOLIC ACID 1 MG TABLET PO SCH (08:55)
[2020-02-13] MEDS: LORazepam 2 MG/ML VIAL IVP PRN (08:55)
[2020-02-13] MEDS: GABAPENTIN 300 MG CAPSULE PO SCH ×3 (08:55→20:19)
[2020-02-13] MEDS: PANTOPRAZOLE SODIUM 40 MG/VIAL (PROTONIX) IVP SCH ×2 (08:55→20:19)
[2020-02-13] MEDS: INSULIN GLARGINE 100 UNITS/ML 10 ML VIAL SUBCUT SCH (08:56)
[2020-02-13] MEDS: FERROUS SULFATE 300 MG/5 ML UDC PO SCH ×2 (08:56→20:19)
[2020-02-13] MEDS: BALSAM PERU/CASTOR OIL 60 GM OINT...G. TP SCH (08:56)
[2020-02-13] MEDS: LINEZOLID 300 ML IV SCH ×2 (08:57→20:18)
[2020-02-13] MEDS: DORZOLAMIDE 2% OPHTHALMIC SOLN 5ML OP SCH ×2 (08:57→20:31)
[2020-02-13] MEDS: BRIMONIDINE TARTRATE 0.2% 5 mL EYE DROPS EACH EYE SCH ×2 (08:57→20:31)
[2020-02-13] MEDS: ALBUTEROL MDI INHALATION 8 GM INH INH SCH ×4 (09:03→21:35)
[2020-02-13] MEDS: PROPOFOL DRIP 100 ML IV PRN ×2 (10:24→20:22)
[2020-02-13] MEDS ORDERED: DEXTROSE 50% JECT 50 ML DISP.SYRIN IVP PRN (11:30)
[2020-02-13] MEDS: INSULIN REGULAR, HUMAN 100 UNITS/ML, 10 ML VIAL (humuLIN R) SUBCUT PRN ×2 (12:31→16:49)
[2020-02-13] MEDS ORDERED: NOREPINEPHRINE 4 MG/4 ML VIAL IV ONE ×2 (14:14→20:09)
[2020-02-13] MEDS ORDERED: NS 250 ML IV ONE (14:15)
[2020-02-13] MEDS ORDERED: ALBUMIN HUMAN 25% 200 ML IV ONE (14:45)
[2020-02-13] MEDS: NOREPINEPHRINE BITARTRATE 4 MG in D5W 246 ML IV PRN ×2 (14:46→23:12)
[2020-02-13] MEDS: ATORVASTATIN 20 MG TABLET PO SCH (20:19)
[2020-02-13] MEDS: MELATONIN 3 MG TABLET PO SCH (20:19)
[2020-02-13] MEDS ORDERED: NOREPINEPHRINE BITARTRATE 16 MG in D5W 234 ML IV PRN (23:15)
[2020-02-14] VITALS (34 sets, daily range): BP systolic 104–173
[2020-02-14] MEDS: hydrALAZINE HCL 20 MG/ML VIAL IVP SCH ×3 (04:00→20:22)
[2020-02-14] MEDS: METOCLOPRAMIDE HCL 10 MG/2 ML VIAL IVP SCH ×3 (05:39→16:51)
[2020-02-14] MEDS: ALBUTEROL MDI INHALATION 8 GM INH INH SCH ×4 (05:50→19:41)
[2020-02-14] MEDS: INSULIN REGULAR, HUMAN 100 UNITS/ML, 10 ML VIAL (humuLIN R) SUBCUT PRN ×3 (06:00→16:50)
[2020-02-14 07:07] LABS: BASOPHILS % (AUTO) 0.2 % (0.0-2.0); EOSINOPHILS % (AUTO) 0.3 % (0.0-4.0); HEMATOCRIT 28.6 % (36-54); HEMOGLOBIN 9.4 g/dL (14.0-18.0); LYMPHOCYTES # (AUTO) 0.6 K/uL (1.0-5.5); LYMPHOCYTES % (AUTO) 5.2 % (20.5-51.5); MEAN CORPUSCULAR HEMOGLOBIN 30 pg (27-31); MEAN CORPUSCULAR HGB CONC 33 % (32-36); MEAN CORPUSCULAR VOLUME 90 fL (79.0-98.0); MONOCYTES # (AUTO) 0.4 K/uL (0.0-1.0); MONOCYTES % (AUTO) 3.7 % (1.7-9.3); NEUTROPHILS # (AUTO) 10.2 K/uL (1.8-7.7); NEUTROPHILS % (AUTO) 90.6 % (40.0-70.0); PLATELET COUNT (AUTO) 333 K/uL (130-430); RED BLOOD CELL COUNT(AUTO) 3.17 MIL/uL (4.2-6.2); RED CELL DISTRIBUTION WIDTH 20.4 % (9.0-15.0); WHITE BLOOD COUNT (AUTO) 11.3 K/uL (4.8-10.8)
[2020-02-14 07:32] LABS: CREATININE 6.47 mg/dL (0.55-1.30); POTASSIUM 5.3 mmol/L (3.5-5.1)
[2020-02-14 08:08] LABS: CALCIUM 6.7 mg/dL (8.4-11.0)
[2020-02-14] MEDS: PROPOFOL DRIP 100 ML IV PRN ×2 (08:43→17:34)
[2020-02-14] MEDS: HEPARIN SODIUM,PORCINE 5000 UNITS/ML VIAL SUBCUT SCH ×2 (08:44→20:27)
[2020-02-14] MEDS: FERROUS SULFATE 300 MG/5 ML UDC PO SCH ×2 (08:45→20:20)
[2020-02-14] MEDS: LINEZOLID 300 ML IV SCH ×2 (08:45→20:23)
[2020-02-14] MEDS: PANTOPRAZOLE SODIUM 40 MG/VIAL (PROTONIX) IVP SCH ×2 (08:46→20:21)
[2020-02-14] MEDS: GABAPENTIN 300 MG CAPSULE PO SCH ×3 (08:46→20:20)
[2020-02-14] MEDS: amLODIPine BESYLATE 10 MG TABLET NG SCH (08:46)
[2020-02-14] MEDS: DORZOLAMIDE 2% OPHTHALMIC SOLN 5ML OP SCH ×2 (08:48→20:45)
[2020-02-14] MEDS: FOLIC ACID 1 MG TABLET PO SCH (08:48)
[2020-02-14] MEDS: BRIMONIDINE TARTRATE 0.2% 5 mL EYE DROPS EACH EYE SCH ×2 (08:49→20:45)
[2020-02-14] MEDS: BALSAM PERU/CASTOR OIL 60 GM OINT...G. TP SCH (08:50)
[2020-02-14] MEDS: MORPHINE I.V. DRIP 100 ML IV PRN (10:25)
[2020-02-14] MEDS ORDERED: HEPARIN SODIUM,PORCINE 5000 UNITS/ML VIAL IV ONE (15:00)
[2020-02-14] MEDS ORDERED: HEPARIN SODIUM,PORCINE 5000 UNITS/ML VIAL ONE (15:16)
[2020-02-14] MEDS: ATORVASTATIN 20 MG TABLET PO SCH (20:20)
[2020-02-14] MEDS: MELATONIN 3 MG TABLET PO SCH (20:21)
[2020-02-15] VITALS (34 sets, daily range): BP systolic 120–171
[2020-02-15] MEDS: METOCLOPRAMIDE HCL 10 MG/2 ML VIAL IVP SCH ×4 (00:45→17:09)
[2020-02-15] MEDS: ALBUTEROL MDI INHALATION 8 GM INH INH SCH ×3 (01:05→15:22)
[2020-02-15] MEDS: hydrALAZINE HCL 20 MG/ML VIAL IVP SCH ×4 (03:31→23:30)
[2020-02-15] MEDS: PROPOFOL DRIP 100 ML IV PRN ×3 (05:04→20:34)
[2020-02-15 05:51] LABS: HEMATOCRIT 28.1 % (36-54); HEMOGLOBIN 9.2 g/dL (14.0-18.0); MEAN CORPUSCULAR HEMOGLOBIN 30 pg (27-31); MEAN CORPUSCULAR HGB CONC 33 % (32-36); MEAN CORPUSCULAR VOLUME 90 fL (79.0-98.0); PLATELET COUNT (AUTO) 328 K/uL (130-430); RED BLOOD CELL COUNT(AUTO) 3.13 MIL/uL (4.2-6.2); RED CELL DISTRIBUTION WIDTH 19.2 % (9.0-15.0); WHITE BLOOD COUNT (AUTO) 14.4 K/uL (4.8-10.8)
[2020-02-15 05:58] LABS: CREATININE 6.17 mg/dL (0.55-1.30); POTASSIUM 4.4 mmol/L (3.5-5.1)
[2020-02-15] MEDS: INSULIN REGULAR, HUMAN 100 UNITS/ML, 10 ML VIAL (humuLIN R) SUBCUT PRN ×2 (06:03→12:17)
[2020-02-15 06:23] LABS: BAND % (MANUAL) 5 % (0-6); EOSINOPHILS % (MANUAL) 1 % (0-7); LYMPHOCYTES % (MANUAL) 3 % (20-46); MONOCYTES % (MANUAL) 4 % (0-11)
[2020-02-15 06:24] LABS: BASOPHILS % (MANUAL) 0 % (0-2)
[2020-02-15] MEDS: LINEZOLID 300 ML IV SCH ×2 (08:47→20:28)
[2020-02-15] MEDS: PANTOPRAZOLE SODIUM 40 MG/VIAL (PROTONIX) IVP SCH ×2 (08:47→20:29)
[2020-02-15] MEDS: FOLIC ACID 1 MG TABLET PO SCH (08:50)
[2020-02-15] MEDS: GABAPENTIN 300 MG CAPSULE PO SCH ×3 (08:50→20:28)
[2020-02-15] MEDS: FERROUS SULFATE 300 MG/5 ML UDC PO SCH ×2 (08:50→20:28)
[2020-02-15] MEDS: amLODIPine BESYLATE 10 MG TABLET NG SCH (08:54)
[2020-02-15] MEDS: BALSAM PERU/CASTOR OIL 60 GM OINT...G. TP SCH (08:55)
[2020-02-15] MEDS: DORZOLAMIDE 2% OPHTHALMIC SOLN 5ML OP SCH ×2 (08:56→20:31)
[2020-02-15] MEDS: BRIMONIDINE TARTRATE 0.2% 5 mL EYE DROPS EACH EYE SCH ×2 (08:56→20:31)
[2020-02-15] MEDS: HEPARIN SODIUM,PORCINE 5000 UNITS/ML VIAL SUBCUT SCH ×2 (08:58→20:32)
[2020-02-15] MEDS: EPOETIN ALFA 10,000 UNITS/ML VIAL SUBCUT SCH (16:27)
[2020-02-15] MEDS: ATORVASTATIN 20 MG TABLET PO SCH (20:28)
[2020-02-15] MEDS: MELATONIN 3 MG TABLET PO SCH (20:29)
[2020-02-16] VITALS (31 sets, daily range): BP systolic 116–164
[2020-02-16] MEDS: METOCLOPRAMIDE HCL 10 MG/2 ML VIAL IVP SCH ×4 (00:07→16:59)
[2020-02-16] MEDS: D5NS 500 ML IV SCH (00:45)
[2020-02-16] MEDS: hydrALAZINE HCL 20 MG/ML VIAL IVP SCH ×3 (04:34→20:42)
[2020-02-16] MEDS ORDERED: IVERMECTIN 3 MG TABLET PO ONE ×2 (05:15→09:00)
[2020-02-16] MEDS: LORazepam 2 MG/ML VIAL IVP PRN ×4 (05:30→15:03)
[2020-02-16 05:54] LABS: HEMATOCRIT 26.6 % (36-54); HEMOGLOBIN 8.8 g/dL (14.0-18.0); MEAN CORPUSCULAR HEMOGLOBIN 30 pg (27-31); MEAN CORPUSCULAR HGB CONC 33 % (32-36); MEAN CORPUSCULAR VOLUME 90 fL (79.0-98.0); PLATELET COUNT (AUTO) 276 K/uL (130-430); RED BLOOD CELL COUNT(AUTO) 2.94 MIL/uL (4.2-6.2); RED CELL DISTRIBUTION WIDTH 18.8 % (9.0-15.0); WHITE BLOOD COUNT (AUTO) 12.9 K/uL (4.8-10.8)
[2020-02-16 05:59] LABS: ALBUMIN 1.6 g/dL (3.4-4.8); CREATININE 7.33 mg/dL (0.55-1.30); POTASSIUM 4.9 mmol/L (3.5-5.1); TOTAL BILIRUBIN 0.7 mg/dL (0.0-1.0)
[2020-02-16 06:19] LABS: BAND % (MANUAL) 7 % (0-6); BASOPHILS % (MANUAL) 0 % (0-2); EOSINOPHILS % (MANUAL) 0 % (0-7); LYMPHOCYTES % (MANUAL) 6 % (20-46); MONOCYTES % (MANUAL) 3 % (0-11)
[2020-02-16] MEDS: INSULIN REGULAR, HUMAN 100 UNITS/ML, 10 ML VIAL (humuLIN R) SUBCUT PRN ×3 (06:41→22:06)
[2020-02-16] MEDS: PROPOFOL DRIP 100 ML IV PRN ×3 (08:10→20:52)
[2020-02-16] MEDS: ALBUTEROL MDI INHALATION 8 GM INH INH SCH ×3 (08:12→19:52)
[2020-02-16] MEDS: BRIMONIDINE TARTRATE 0.2% 5 mL EYE DROPS EACH EYE SCH ×2 (08:38→20:43)
[2020-02-16] MEDS: LINEZOLID 300 ML IV SCH ×2 (08:38→20:42)
[2020-02-16] MEDS: DORZOLAMIDE 2% OPHTHALMIC SOLN 5ML OP SCH ×2 (08:38→20:44)
[2020-02-16] MEDS: PANTOPRAZOLE SODIUM 40 MG/VIAL (PROTONIX) IVP SCH (08:38)
[2020-02-16] MEDS: BALSAM PERU/CASTOR OIL 60 GM OINT...G. TP SCH (08:40)
[2020-02-16] MEDS: amLODIPine BESYLATE 10 MG TABLET NG SCH (09:29)
[2020-02-16] MEDS: GABAPENTIN 300 MG CAPSULE PO SCH ×2 (09:29→20:40)
[2020-02-16] MEDS: FERROUS SULFATE 300 MG/5 ML UDC PO SCH ×2 (09:29→20:40)
[2020-02-16] MEDS: FOLIC ACID 1 MG TABLET PO SCH (09:29)
[2020-02-16] MEDS: HEPARIN SODIUM,PORCINE 5000 UNITS/ML VIAL SUBCUT SCH ×2 (09:30→20:53)
[2020-02-16] MEDS ORDERED: HEPARIN SODIUM,PORCINE 5000 UNITS/ML VIAL SUBCUT ONE (13:00)
[2020-02-16] MEDS ORDERED: DEXAMETHASONE SOD PHOSPHATE 10 MG/ML VIAL IVP SCH (13:15)
[2020-02-16] MEDS ORDERED: PANTOPRAZOLE SODIUM 40 MG/VIAL (PROTONIX) IVP ONE (14:00)
[2020-02-16] MEDS: DEXAMETHASONE SOD PHOSPHATE 10 MG/ML VIAL IVP SCH (15:03)
[2020-02-16] MEDS: MORPHINE I.V. DRIP 100 ML IV PRN (15:06)
[2020-02-16] MEDS ORDERED: ALTEPLASE 2 MG VIAL MC ONE (17:15)
[2020-02-16] MEDS ORDERED: PROPOFOL 200MG/ 20ML VIAL (DIPRIVAN) IV ONE (18:45)
[2020-02-16] MEDS: ATORVASTATIN 20 MG TABLET PO SCH (20:40)
[2020-02-16] MEDS: MELATONIN 3 MG TABLET PO SCH (20:41)
[2020-02-17] VITALS (37 sets, daily range): BP systolic 123–173
[2020-02-17] MEDS: D5NS 500 ML IV SCH (00:45)
[2020-02-17] MEDS: ALBUTEROL MDI INHALATION 8 GM INH INH SCH ×4 (01:05→20:49)
[2020-02-17] MEDS: METOCLOPRAMIDE HCL 10 MG/2 ML VIAL IVP SCH ×4 (01:56→17:56)
[2020-02-17] MEDS: PROPOFOL DRIP 100 ML IV PRN ×5 (01:59→19:11)
[2020-02-17] MEDS: LORazepam 2 MG/ML VIAL IVP PRN ×2 (04:57→14:49)
[2020-02-17] MEDS: hydrALAZINE HCL 20 MG/ML VIAL IVP SCH ×3 (04:59→21:31)
[2020-02-17 05:30] LABS: HEMOGLOBIN 7.3 g/dL (14.0-18.0); LYMPHOCYTES # (AUTO) 0.7 K/uL (1.0-5.5); MONOCYTES # (AUTO) 0.4 K/uL (0.0-1.0)
[2020-02-17] MEDS ORDERED: MORPHINE SULFATE 10 MG/ML VIAL ONE (05:34)
[2020-02-17 05:36] LABS: BASOPHILS % (AUTO) 0.2 % (0.0-2.0); MEAN CORPUSCULAR HEMOGLOBIN 30 pg (27-31); MEAN CORPUSCULAR HGB CONC 34 % (32-36); MEAN CORPUSCULAR VOLUME 89 fL (79.0-98.0); MONOCYTES % (AUTO) 3.9 % (1.7-9.3); NEUTROPHILS % (AUTO) 88.9 % (40.0-70.0); PLATELET COUNT (AUTO) 219 K/uL (130-430); RED BLOOD CELL COUNT(AUTO) 2.42 MIL/uL (4.2-6.2); RED CELL DISTRIBUTION WIDTH 19.1 % (9.0-15.0); WHITE BLOOD COUNT (AUTO) 10.2 K/uL (4.8-10.8)
[2020-02-17 05:40] LABS: HEMATOCRIT 21.5 % (36-54)
[2020-02-17 05:47] LABS: ALBUMIN 1.5 g/dL (3.4-4.8); CALCIUM 7.2 mg/dL (8.4-11.0); CREATININE 6.95 mg/dL (0.55-1.30); POTASSIUM 4.4 mmol/L (3.5-5.1); TOTAL BILIRUBIN 0.5 mg/dL (0.0-1.0)
[2020-02-17] MEDS: MORPHINE I.V. DRIP 100 ML IV PRN ×2 (06:13→21:30)
[2020-02-17] MEDS: GABAPENTIN 300 MG CAPSULE PO SCH ×2 (09:06→21:31)
[2020-02-17] MEDS: FERROUS SULFATE 300 MG/5 ML UDC PO SCH ×2 (09:07→21:30)
[2020-02-17] MEDS: FOLIC ACID 1 MG TABLET PO SCH (09:07)
[2020-02-17] MEDS: amLODIPine BESYLATE 10 MG TABLET NG SCH (09:07)
[2020-02-17] MEDS: DEXAMETHASONE SOD PHOSPHATE 10 MG/ML VIAL IVP SCH (09:08)
[2020-02-17] MEDS: BRIMONIDINE TARTRATE 0.2% 5 mL EYE DROPS EACH EYE SCH ×2 (09:09→20:13)
[2020-02-17] MEDS: HEPARIN SODIUM,PORCINE 5000 UNITS/ML VIAL SUBCUT SCH (09:09)
[2020-02-17] MEDS: BALSAM PERU/CASTOR OIL 60 GM OINT...G. TP SCH (09:10)
[2020-02-17] MEDS: DORZOLAMIDE 2% OPHTHALMIC SOLN 5ML OP SCH ×2 (09:10→20:13)
[2020-02-17] MEDS: LINEZOLID 300 ML IV SCH ×2 (09:31→21:28)
[2020-02-17] MEDS: EPOETIN ALFA 10,000 UNITS/ML VIAL SUBCUT SCH (17:56)
[2020-02-17] MEDS: MELATONIN 3 MG TABLET PO SCH (21:31)
[2020-02-17] MEDS: ATORVASTATIN 20 MG TABLET PO SCH (21:31)
[2020-02-17] MEDS: INSULIN REGULAR, HUMAN 100 UNITS/ML, 10 ML VIAL (humuLIN R) SUBCUT PRN (22:40)
[2020-02-18] VITALS (33 sets, daily range): BP systolic 131–208
[2020-02-18] MEDS: METOCLOPRAMIDE HCL 10 MG/2 ML VIAL IVP SCH ×5 (00:02→23:04)
[2020-02-18] MEDS: PROPOFOL DRIP 100 ML IV PRN ×6 (00:03→20:15)
[2020-02-18] MEDS: D5NS 500 ML IV SCH (00:45)
[2020-02-18] MEDS: ALBUTEROL MDI INHALATION 8 GM INH INH SCH ×4 (01:05→21:00)
[2020-02-18] MEDS: hydrALAZINE HCL 20 MG/ML VIAL IVP SCH ×3 (05:07→20:39)
[2020-02-18 05:25] LABS: BASOPHILS % (AUTO) 0.2 % (0.0-2.0); HEMATOCRIT 27.4 % (36-54); LYMPHOCYTES # (AUTO) 0.7 K/uL (1.0-5.5); LYMPHOCYTES % (AUTO) 5.9 % (20.5-51.5); MEAN CORPUSCULAR HEMOGLOBIN 29 pg (27-31); MEAN CORPUSCULAR HGB CONC 33 % (32-36); MEAN CORPUSCULAR VOLUME 89 fL (79.0-98.0); MONOCYTES # (AUTO) 0.7 K/uL (0.0-1.0); MONOCYTES % (AUTO) 6.2 % (1.7-9.3); NEUTROPHILS # (AUTO) 9.7 K/uL (1.8-7.7); NEUTROPHILS % (AUTO) 87.7 % (40.0-70.0); PLATELET COUNT (AUTO) 267 K/uL (130-430); RED CELL DISTRIBUTION WIDTH 18.8 % (9.0-15.0); WHITE BLOOD COUNT (AUTO) 11.1 K/uL (4.8-10.8)
[2020-02-18 05:37] LABS: CALCIUM 7.3 mg/dL (8.4-11.0); POTASSIUM 4.5 mmol/L (3.5-5.1)
[2020-02-18 05:41] LABS: PROTHROMBIN TIME 10.3 SECS (9.5-12.5)
[2020-02-18 05:44] LABS: CREATININE 7.94 mg/dL (0.55-1.30)
[2020-02-18] MEDS: INSULIN REGULAR, HUMAN 100 UNITS/ML, 10 ML VIAL (humuLIN R) SUBCUT PRN ×3 (06:57→21:13)
[2020-02-18] MEDS: DEXAMETHASONE SOD PHOSPHATE 10 MG/ML VIAL IVP SCH (08:45)
[2020-02-18] MEDS: GABAPENTIN 300 MG CAPSULE PO SCH (08:45)
[2020-02-18] MEDS: FOLIC ACID 1 MG TABLET PO SCH (08:45)
[2020-02-18] MEDS: amLODIPine BESYLATE 10 MG TABLET NG SCH (08:46)
[2020-02-18] MEDS: FERROUS SULFATE 300 MG/5 ML UDC PO SCH (08:46)
[2020-02-18] MEDS: DORZOLAMIDE 2% OPHTHALMIC SOLN 5ML OP SCH ×2 (09:38→20:32)
[2020-02-18] MEDS: BRIMONIDINE TARTRATE 0.2% 5 mL EYE DROPS EACH EYE SCH ×2 (09:38→20:32)
[2020-02-18] MEDS: BALSAM PERU/CASTOR OIL 60 GM OINT...G. TP SCH (09:39)
[2020-02-18] MEDS ORDERED: COMMUNICATION ORDER XX ONE ×2 (11:00)
[2020-02-18] MEDS ORDERED: HEPARIN SODIUM,PORCINE 5000 UNITS/ML VIAL ONE (12:02)
[2020-02-18] MEDS: MORPHINE I.V. DRIP 100 ML IV PRN (18:25)
[2020-02-18] MEDS ORDERED: METOPROLOL TARTRATE 5 MG/5 ML VIAL IVP ONE (20:15)
[2020-02-18] MEDS ORDERED: METOPROLOL TARTRATE 5 MG/5 ML VIAL ONE (20:26)
[2020-02-18] MEDS: GABAPENTIN 300 MG CAPSULE GT SCH (20:30)
[2020-02-18] MEDS ORDERED: AMIODARONE HCL 900 MG in D5W 482 ML IV SCH (20:30)
[2020-02-18] MEDS: FERROUS SULFATE 300 MG/5 ML UDC GT SCH (20:32)
[2020-02-18] MEDS: ATORVASTATIN 20 MG TABLET GT SCH (20:32)
[2020-02-18] MEDS: LINEZOLID 300 ML IV SCH (20:33)
[2020-02-18] MEDS: MELATONIN 3 MG TABLET GT SCH (20:34)
[2020-02-18] MEDS: HEPARIN SODIUM,PORCINE 5000 UNITS/ML VIAL SUBCUT SCH (21:14)
[2020-02-18] MEDS ORDERED: AMIODARONE HCL 900 MG/18 ML VIAL IV ONE (22:16)
[2020-02-19] VITALS (35 sets, daily range): BP systolic 123–184
[2020-02-19] MEDS: INSULIN REGULAR, HUMAN 100 UNITS/ML, 10 ML VIAL (humuLIN R) SUBCUT PRN ×2 (00:20→05:21)
[2020-02-19] MEDS: PROPOFOL DRIP 100 ML IV PRN ×4 (00:20→10:01)
[2020-02-19] MEDS: ALBUTEROL MDI INHALATION 8 GM INH INH SCH ×4 (03:43→23:34)
[2020-02-19] MEDS: METOCLOPRAMIDE HCL 10 MG/2 ML VIAL IVP SCH ×3 (04:51→18:47)
[2020-02-19] MEDS: hydrALAZINE HCL 20 MG/ML VIAL IVP SCH ×3 (04:51→20:38)
[2020-02-19 05:39] LABS: BASOPHILS % (AUTO) 0.4 % (0.0-2.0); HEMATOCRIT 28.5 % (36-54); HEMOGLOBIN 9.4 g/dL (14.0-18.0); LYMPHOCYTES # (AUTO) 1.4 K/uL (1.0-5.5); LYMPHOCYTES % (AUTO) 12.4 % (20.5-51.5); MEAN CORPUSCULAR HEMOGLOBIN 29 pg (27-31); MEAN CORPUSCULAR HGB CONC 33 % (32-36); MEAN CORPUSCULAR VOLUME 88 fL (79.0-98.0); MONOCYTES # (AUTO) 1.1 K/uL (0.0-1.0); MONOCYTES % (AUTO) 9.5 % (1.7-9.3); NEUTROPHILS # (AUTO) 8.6 K/uL (1.8-7.7); NEUTROPHILS % (AUTO) 77.7 % (40.0-70.0); PLATELET COUNT (AUTO) 276 K/uL (130-430); RED BLOOD CELL COUNT(AUTO) 3.23 MIL/uL (4.2-6.2); RED CELL DISTRIBUTION WIDTH 18.3 % (9.0-15.0); WHITE BLOOD COUNT (AUTO) 11.1 K/uL (4.8-10.8)
[2020-02-19 05:49] LABS: CALCIUM 7.5 mg/dL (8.4-11.0); CREATININE 7.05 mg/dL (0.55-1.30); POTASSIUM 3.8 mmol/L (3.5-5.1)
[2020-02-19] MEDS: HEPARIN SODIUM,PORCINE 5000 UNITS/ML VIAL SUBCUT SCH ×2 (10:02→20:41)
[2020-02-19] MEDS: FAMOTIDINE PF 20 MG/2 ML VIAL IVP SCH (10:03)
[2020-02-19] MEDS: GABAPENTIN 300 MG CAPSULE GT SCH ×2 (10:03→20:38)
[2020-02-19] MEDS: FERROUS SULFATE 300 MG/5 ML UDC GT SCH ×2 (10:03→20:39)
[2020-02-19] MEDS: FOLIC ACID 1 MG TABLET GT SCH (10:04)
[2020-02-19] MEDS: amLODIPine BESYLATE 10 MG TABLET NG SCH (10:04)
[2020-02-19] MEDS: LINEZOLID 300 ML IV SCH (10:07)
[2020-02-19] MEDS: BRIMONIDINE TARTRATE 0.2% 5 mL EYE DROPS EACH EYE SCH ×2 (11:14→20:40)
[2020-02-19] MEDS: DORZOLAMIDE 2% OPHTHALMIC SOLN 5ML OP SCH ×2 (11:14→20:40)
[2020-02-19] MEDS: BALSAM PERU/CASTOR OIL 60 GM OINT...G. TP SCH (11:18)
[2020-02-19] MEDS: DEXAMETHASONE SOD PHOSPHATE 10 MG/ML VIAL IVP SCH (12:56)
[2020-02-19] MEDS ORDERED: DEXTROSE 50% JECT 50 ML DISP.SYRIN IVP PRN (13:00)
[2020-02-19] MEDS ORDERED: COMMUNICATION ORDER XX ONE ×2 (13:45→18:45)
[2020-02-19] MEDS ORDERED: NS IV PRN ×2 (14:00)
[2020-02-19] MEDS ORDERED: MIDAZOLAM HCL IV PRN ×2 (14:00)
[2020-02-19] MEDS ORDERED: MIDAZOLAM HCL 50 MG in NS 50 ML IV PRN (14:07)
[2020-02-19] MEDS ORDERED: MIDAZOLAM HCL 50 MG in D5W 50 ML IV PRN (14:30)
[2020-02-19] MEDS: INSULIN NPH 100 UNITS/ML 10 ML VIAL SUBCUT SCH ×2 (14:47→18:48)
[2020-02-19] MEDS: INSULIN LISPRO SLIDING SCALE 100 UNITS/ML VIAL (humaLOG) SUBCUT PRN ×3 (14:48→19:00)
[2020-02-19] MEDS: DAPTOmycin 750 MG in NS 50 ML IV SCH (15:07)
[2020-02-19] MEDS: MIDAZOLAM HCL IV PRN (15:09)
[2020-02-19] MEDS: NS IV PRN (15:09)
[2020-02-19] MEDS: MORPHINE I.V. DRIP 100 ML IV PRN (15:11)
[2020-02-19] MEDS: EPOETIN ALFA 10,000 UNITS/ML VIAL SUBCUT SCH (16:26)
[2020-02-19] MEDS ORDERED: AMIODARONE HCL 900 MG in D5W 482 ML IV SCH (18:45)
[2020-02-19] MEDS ORDERED: AMIODARONE HCL 900 MG/18 ML VIAL IV ONE ×2 (19:48→19:49)
[2020-02-19] MEDS: ATORVASTATIN 20 MG TABLET GT SCH (20:38)
[2020-02-19] MEDS: MELATONIN 3 MG TABLET GT SCH (20:39)
[2020-02-20] VITALS (36 sets, daily range): BP systolic 117–174
[2020-02-20] MEDS: METOCLOPRAMIDE HCL 10 MG/2 ML VIAL IVP SCH ×2 (00:14→05:59)
[2020-02-20] MEDS: INSULIN LISPRO SLIDING SCALE 100 UNITS/ML VIAL (humaLOG) SUBCUT PRN ×5 (00:49→18:30)
[2020-02-20] MEDS ORDERED: MORPHINE SULFATE 10 MG/ML VIAL ONE (00:50)
[2020-02-20] MEDS: MORPHINE I.V. DRIP 100 ML IV PRN ×2 (00:53→15:26)
[2020-02-20] MEDS ORDERED: MIDAZOLAM HCL 5 MG/5 ML VIAL ONE ×2 (01:27→01:30)
[2020-02-20] MEDS: MIDAZOLAM HCL IV PRN ×2 (01:44→15:24)
[2020-02-20] MEDS: NS IV PRN ×2 (01:44→15:24)
[2020-02-20] MEDS: ALBUTEROL MDI INHALATION 8 GM INH INH SCH ×4 (03:59→21:52)
[2020-02-20] MEDS: hydrALAZINE HCL 20 MG/ML VIAL IVP SCH ×4 (04:09→23:57)
[2020-02-20] MEDS: INSULIN NPH 100 UNITS/ML 10 ML VIAL SUBCUT SCH ×2 (06:00→17:45)
[2020-02-20 06:39] LABS: BASOPHILS % (AUTO) 0.2 % (0.0-2.0); HEMATOCRIT 28.2 % (36-54); HEMOGLOBIN 9.4 g/dL (14.0-18.0); LYMPHOCYTES # (AUTO) 1.1 K/uL (1.0-5.5); LYMPHOCYTES % (AUTO) 7.7 % (20.5-51.5); MEAN CORPUSCULAR HEMOGLOBIN 29 pg (27-31); MEAN CORPUSCULAR HGB CONC 33 % (32-36); MEAN CORPUSCULAR VOLUME 88 fL (79.0-98.0); MONOCYTES # (AUTO) 0.8 K/uL (0.0-1.0); MONOCYTES % (AUTO) 5.3 % (1.7-9.3); NEUTROPHILS # (AUTO) 12.4 K/uL (1.8-7.7); NEUTROPHILS % (AUTO) 86.8 % (40.0-70.0); PLATELET COUNT (AUTO) 329 K/uL (130-430); RED CELL DISTRIBUTION WIDTH 18.2 % (9.0-15.0); WHITE BLOOD COUNT (AUTO) 14.3 K/uL (4.8-10.8)
[2020-02-20 06:56] LABS: ALBUMIN 1.7 g/dL (3.4-4.8); CALCIUM 7.9 mg/dL (8.4-11.0); PHOSPHORUS 8.9 mg/dL (2.7-4.5); POTASSIUM 4.4 mmol/L (3.5-5.1)
[2020-02-20 08:03] LABS: CREATININE 7.84 mg/dL (0.55-1.30)
[2020-02-20] MEDS: FAMOTIDINE PF 20 MG/2 ML VIAL IVP SCH (08:10)
[2020-02-20] MEDS: HEPARIN SODIUM,PORCINE 5000 UNITS/ML VIAL SUBCUT SCH ×2 (08:11→21:35)
[2020-02-20] MEDS: amLODIPine BESYLATE 10 MG TABLET NG SCH (08:12)
[2020-02-20] MEDS: GABAPENTIN 300 MG CAPSULE GT SCH ×2 (08:12→20:50)
[2020-02-20] MEDS: DEXAMETHASONE SOD PHOSPHATE 10 MG/ML VIAL IVP SCH (08:13)
[2020-02-20] MEDS: FOLIC ACID 1 MG TABLET GT SCH (08:13)
[2020-02-20] MEDS: FERROUS SULFATE 300 MG/5 ML UDC GT SCH ×2 (08:13→20:50)
[2020-02-20] MEDS: DORZOLAMIDE 2% OPHTHALMIC SOLN 5ML OP SCH ×2 (08:25→20:47)
[2020-02-20] MEDS: BALSAM PERU/CASTOR OIL 60 GM OINT...G. TP SCH (08:25)
[2020-02-20] MEDS: BRIMONIDINE TARTRATE 0.2% 5 mL EYE DROPS EACH EYE SCH ×2 (08:25→20:48)
[2020-02-20] MEDS ORDERED: HEPARIN SODIUM, PORCINE 10,000 UNITS/ 10 ML VIAL MC ONE (14:45)
[2020-02-20] MEDS ORDERED: HEPARIN SODIUM,PORCINE 5000 UNITS/ML VIAL MC ONE (15:15)
[2020-02-20] MEDS: MELATONIN 3 MG TABLET GT SCH (20:49)
[2020-02-20] MEDS: ATORVASTATIN 20 MG TABLET GT SCH (20:50)
[2020-02-20] MEDS: AMIODARONE HCL 200 MG TABLET NG SCH (20:51)
[2020-02-21] VITALS (35 sets, daily range): BP systolic 114–153
[2020-02-21] MEDS: INSULIN LISPRO SLIDING SCALE 100 UNITS/ML VIAL (humaLOG) SUBCUT PRN ×5 (03:10→17:39)
[2020-02-21] MEDS: ALBUTEROL MDI INHALATION 8 GM INH INH SCH ×4 (03:35→19:59)
[2020-02-21] MEDS: hydrALAZINE HCL 20 MG/ML VIAL IVP SCH ×3 (06:55→16:57)
[2020-02-21 07:21] LABS: BASOPHILS # (AUTO) 0.1 K/uL (0.0-0.2); BASOPHILS % (AUTO) 0.2 % (0.0-2.0); EOSINOPHILS % (AUTO) 0.1 % (0.0-4.0); HEMATOCRIT 31.5 % (36-54); LYMPHOCYTES # (AUTO) 1.2 K/uL (1.0-5.5); MEAN CORPUSCULAR HEMOGLOBIN 29 pg (27-31); MEAN CORPUSCULAR HGB CONC 32 % (32-36); MEAN CORPUSCULAR VOLUME 90 fL (79.0-98.0); MONOCYTES # (AUTO) 1.1 K/uL (0.0-1.0); MONOCYTES % (AUTO) 4.8 % (1.7-9.3); NEUTROPHILS # (AUTO) 20.8 K/uL (1.8-7.7); NEUTROPHILS % (AUTO) 89.9 % (40.0-70.0); PLATELET COUNT (AUTO) 427 K/uL (130-430); RED BLOOD CELL COUNT(AUTO) 3.51 MIL/uL (4.2-6.2); RED CELL DISTRIBUTION WIDTH 18.6 % (9.0-15.0); WHITE BLOOD COUNT (AUTO) 23.1 K/uL (4.8-10.8)
[2020-02-21 07:41] LABS: CALCIUM 7.8 mg/dL (8.4-11.0); CREATININE 7.31 mg/dL (0.55-1.30); POTASSIUM 4.2 mmol/L (3.5-5.1)
[2020-02-21] MEDS: DEXAMETHASONE SOD PHOSPHATE 10 MG/ML VIAL IVP SCH (08:08)
[2020-02-21] MEDS: FAMOTIDINE PF 20 MG/2 ML VIAL IVP SCH (08:09)
[2020-02-21] MEDS: FOLIC ACID 1 MG TABLET GT SCH (08:09)
[2020-02-21] MEDS: GABAPENTIN 300 MG CAPSULE GT SCH ×2 (08:09→21:22)
[2020-02-21] MEDS: FERROUS SULFATE 300 MG/5 ML UDC GT SCH ×2 (08:09→21:21)
[2020-02-21] MEDS: amLODIPine BESYLATE 10 MG TABLET NG SCH (08:10)
[2020-02-21] MEDS: AMIODARONE HCL 200 MG TABLET NG SCH ×2 (08:10→21:22)
[2020-02-21] MEDS: HEPARIN SODIUM,PORCINE 5000 UNITS/ML VIAL SUBCUT SCH ×2 (08:11→21:26)
[2020-02-21] MEDS: INSULIN NPH 100 UNITS/ML 10 ML VIAL SUBCUT SCH ×2 (08:13→16:50)
[2020-02-21] MEDS: DORZOLAMIDE 2% OPHTHALMIC SOLN 5ML OP SCH ×2 (08:52→22:10)
[2020-02-21] MEDS: BALSAM PERU/CASTOR OIL 60 GM OINT...G. TP SCH (08:52)
[2020-02-21] MEDS: BRIMONIDINE TARTRATE 0.2% 5 mL EYE DROPS EACH EYE SCH ×2 (08:52→22:10)
[2020-02-21] MEDS ORDERED: LACTOBACILLUS RHAMNOSUS GG 1 CAP CAPSULE PO ONE (09:00)
[2020-02-21] MEDS: DAPTOmycin 750 MG in NS 50 ML IV SCH (11:17)
[2020-02-21] MEDS: NS IV PRN (11:18)
[2020-02-21] MEDS: MIDAZOLAM HCL IV PRN (11:18)
[2020-02-21] MEDS: LACTOBACILLUS RHAMNOSUS GG 1 CAP CAPSULE PO SCH (21:21)
[2020-02-21] MEDS: ATORVASTATIN 20 MG TABLET GT SCH (21:22)
[2020-02-22] VITALS (31 sets, daily range): BP systolic 89–135
[2020-02-22] MEDS: INSULIN LISPRO SLIDING SCALE 100 UNITS/ML VIAL (humaLOG) SUBCUT PRN ×2 (01:16→17:57)
[2020-02-22] MEDS: ALBUTEROL MDI INHALATION 8 GM INH INH SCH ×3 (02:46→20:53)
[2020-02-22] MEDS: MIDAZOLAM HCL IV PRN ×2 (04:49→16:40)
[2020-02-22] MEDS: NS IV PRN ×2 (04:49→16:40)
[2020-02-22] MEDS: hydrALAZINE HCL 20 MG/ML VIAL IVP SCH ×4 (06:00→17:53)
[2020-02-22 06:21] LABS: BASOPHILS % (AUTO) 0.2 % (0.0-2.0); EOSINOPHILS # (AUTO) 0.2 K/uL (0.0-0.4); EOSINOPHILS % (AUTO) 0.9 % (0.0-4.0); HEMATOCRIT 27.1 % (36-54); HEMOGLOBIN 8.9 g/dL (14.0-18.0); LYMPHOCYTES # (AUTO) 1.2 K/uL (1.0-5.5); LYMPHOCYTES % (AUTO) 6.4 % (20.5-51.5); MEAN CORPUSCULAR HEMOGLOBIN 29 pg (27-31); MEAN CORPUSCULAR HGB CONC 33 % (32-36); MEAN CORPUSCULAR VOLUME 90 fL (79.0-98.0); MONOCYTES # (AUTO) 0.8 K/uL (0.0-1.0); NEUTROPHILS # (AUTO) 17.4 K/uL (1.8-7.7); NEUTROPHILS % (AUTO) 88.5 % (40.0-70.0); PLATELET COUNT (AUTO) 421 K/uL (130-430); RED BLOOD CELL COUNT(AUTO) 3.02 MIL/uL (4.2-6.2); RED CELL DISTRIBUTION WIDTH 18.4 % (9.0-15.0); WHITE BLOOD COUNT (AUTO) 19.7 K/uL (4.8-10.8)
[2020-02-22 06:22] LABS: CALCIUM 7.9 mg/dL (8.4-11.0)
[2020-02-22 06:26] LABS: CREATININE 8.27 mg/dL (0.55-1.30)
[2020-02-22] MEDS: INSULIN NPH 100 UNITS/ML 10 ML VIAL SUBCUT SCH ×2 (07:42→16:38)
[2020-02-22] MEDS: GABAPENTIN 300 MG CAPSULE GT SCH ×2 (07:58→20:50)
[2020-02-22] MEDS: LACTOBACILLUS RHAMNOSUS GG 1 CAP CAPSULE PO SCH ×2 (07:58→20:49)
[2020-02-22] MEDS: FOLIC ACID 1 MG TABLET GT SCH (07:58)
[2020-02-22] MEDS: FERROUS SULFATE 300 MG/5 ML UDC GT SCH ×2 (07:58→20:49)
[2020-02-22] MEDS: AMIODARONE HCL 200 MG TABLET NG SCH ×2 (07:59→20:50)
[2020-02-22] MEDS: DEXAMETHASONE SOD PHOSPHATE 10 MG/ML VIAL IVP SCH (08:00)
[2020-02-22] MEDS: amLODIPine BESYLATE 10 MG TABLET NG SCH (08:00)
[2020-02-22] MEDS: FAMOTIDINE PF 20 MG/2 ML VIAL IVP SCH (08:00)
[2020-02-22] MEDS: HEPARIN SODIUM,PORCINE 5000 UNITS/ML VIAL SUBCUT SCH ×2 (08:05→20:54)
[2020-02-22] MEDS: MORPHINE I.V. DRIP 100 ML IV PRN (08:07)
[2020-02-22] MEDS: BRIMONIDINE TARTRATE 0.2% 5 mL EYE DROPS EACH EYE SCH ×2 (08:33→20:50)
[2020-02-22] MEDS: DORZOLAMIDE 2% OPHTHALMIC SOLN 5ML OP SCH ×2 (08:34→20:51)
[2020-02-22] MEDS: BALSAM PERU/CASTOR OIL 60 GM OINT...G. TP SCH (08:34)
[2020-02-22] MEDS ORDERED: DEXAMETHASONE SOD PHOSPHATE 10 MG/ML VIAL IVP SCH (09:00)
[2020-02-22] MEDS ORDERED: HEPARIN SODIUM,PORCINE 5000 UNITS/ML VIAL MC ONE ×2 (13:15)
[2020-02-22] MEDS: EPOETIN ALFA 10,000 UNITS/ML VIAL SUBCUT SCH (16:40)
[2020-02-22] MEDS ORDERED: NS IV PRN ×4 (17:00)
[2020-02-22] MEDS ORDERED: MIDAZOLAM HCL IV PRN ×4 (17:00)
[2020-02-22] MEDS ORDERED: DILTIAZEM HCL 25 MG/5 ML VIAL IVP ONE (18:45)
[2020-02-22] MEDS: ATORVASTATIN 20 MG TABLET GT SCH (20:49)
[2020-02-23] VITALS (31 sets, daily range): BP systolic 102–166
[2020-02-23] MEDS: ALBUTEROL MDI INHALATION 8 GM INH INH SCH ×3 (03:40→15:40)
[2020-02-23] MEDS: MIDAZOLAM HCL 50 MG in NS 50 ML IV PRN ×2 (04:12→17:26)
[2020-02-23] MEDS: MORPHINE I.V. DRIP 100 ML IV PRN ×2 (04:14→17:59)
[2020-02-23] MEDS: hydrALAZINE HCL 20 MG/ML VIAL IVP SCH ×4 (06:11→17:24)
[2020-02-23 06:47] LABS: HEMATOCRIT 31.2 % (36-54); HEMOGLOBIN 9.8 g/dL (14.0-18.0); MEAN CORPUSCULAR HEMOGLOBIN 29 pg (27-31); MEAN CORPUSCULAR HGB CONC 32 % (32-36); MEAN CORPUSCULAR VOLUME 91 fL (79.0-98.0); PLATELET COUNT (AUTO) 546 K/uL (130-430); RED BLOOD CELL COUNT(AUTO) 3.43 MIL/uL (4.2-6.2); RED CELL DISTRIBUTION WIDTH 18.6 % (9.0-15.0)
[2020-02-23] MEDS: INSULIN LISPRO SLIDING SCALE 100 UNITS/ML VIAL (humaLOG) SUBCUT PRN ×3 (06:58→17:57)
[2020-02-23] MEDS: INSULIN NPH 100 UNITS/ML 10 ML VIAL SUBCUT SCH ×2 (06:59→17:58)
[2020-02-23 07:19] LABS: CALCIUM 7.8 mg/dL (8.4-11.0); CREATININE 6.9 mg/dL (0.55-1.30); POTASSIUM 4.6 mmol/L (3.5-5.1)
[2020-02-23 07:54] LABS: WHITE BLOOD COUNT (AUTO) 31.9 K/uL (4.8-10.8)
[2020-02-23] MEDS: FOLIC ACID 1 MG TABLET GT SCH (08:21)
[2020-02-23] MEDS: FERROUS SULFATE 300 MG/5 ML UDC GT SCH ×2 (08:21→21:30)
[2020-02-23] MEDS: GABAPENTIN 300 MG CAPSULE GT SCH ×2 (08:22→21:25)
[2020-02-23] MEDS: FAMOTIDINE PF 20 MG/2 ML VIAL IVP SCH (08:22)
[2020-02-23] MEDS: AMIODARONE HCL 200 MG TABLET NG SCH ×2 (08:23→21:26)
[2020-02-23] MEDS: amLODIPine BESYLATE 10 MG TABLET NG SCH (08:23)
[2020-02-23] MEDS: LACTOBACILLUS RHAMNOSUS GG 1 CAP CAPSULE PO SCH ×2 (08:24→21:25)
[2020-02-23] MEDS: HEPARIN SODIUM,PORCINE 5000 UNITS/ML VIAL SUBCUT SCH ×2 (08:28→21:28)
[2020-02-23] MEDS: DEXAMETHASONE SOD PHOSPHATE 10 MG/ML VIAL IVP SCH (08:40)
[2020-02-23 08:52] LABS: ATYPICAL LYMPHOCYTES % 0 % (0-0); BAND % (MANUAL) 0 % (0-6); BASOPHILS % (MANUAL) 0 % (0-2); EOSINOPHILS % (MANUAL) 0 % (0-7); LYMPHOCYTES % (MANUAL) 3 % (20-46); MONOCYTES % (MANUAL) 3 % (0-11)
[2020-02-23] MEDS: DORZOLAMIDE 2% OPHTHALMIC SOLN 5ML OP SCH ×2 (09:14→21:58)
[2020-02-23] MEDS: BRIMONIDINE TARTRATE 0.2% 5 mL EYE DROPS EACH EYE SCH ×2 (09:14→21:58)
[2020-02-23] MEDS: BALSAM PERU/CASTOR OIL 60 GM OINT...G. TP SCH (09:15)
[2020-02-23] MEDS: DAPTOmycin 750 MG in NS 50 ML IV SCH (12:25)
[2020-02-23] MEDS ORDERED: COMMUNICATION ORDER XX ONE (15:30)
[2020-02-23] MEDS: ATORVASTATIN 20 MG TABLET GT SCH (21:26)
[2020-02-24] VITALS (36 sets, daily range): BP systolic 103–146
[2020-02-24] MEDS: hydrALAZINE HCL 20 MG/ML VIAL IVP SCH ×5 (00:07→23:45)
[2020-02-24] MEDS: MIDAZOLAM HCL 50 MG in NS 50 ML IV PRN ×3 (03:28→23:51)
[2020-02-24] MEDS ORDERED: PIPERACILLIN/TAZO 2.25G/DEX-IS 50 ML IV SCH (05:00)
[2020-02-24 05:43] LABS: BASOPHILS # (AUTO) 0.1 K/uL (0.0-0.2); BASOPHILS % (AUTO) 0.4 % (0.0-2.0); EOSINOPHILS % (AUTO) 0.3 % (0.0-4.0); HEMATOCRIT 26.7 % (36-54); HEMOGLOBIN 8.6 g/dL (14.0-18.0); LYMPHOCYTES # (AUTO) 1.1 K/uL (1.0-5.5); LYMPHOCYTES % (AUTO) 6.7 % (20.5-51.5); MEAN CORPUSCULAR HEMOGLOBIN 29 pg (27-31); MEAN CORPUSCULAR HGB CONC 32 % (32-36); MEAN CORPUSCULAR VOLUME 90 fL (79.0-98.0); MONOCYTES # (AUTO) 0.7 K/uL (0.0-1.0); MONOCYTES % (AUTO) 4.4 % (1.7-9.3); NEUTROPHILS # (AUTO) 14.2 K/uL (1.8-7.7); NEUTROPHILS % (AUTO) 88.2 % (40.0-70.0); PLATELET COUNT (AUTO) 456 K/uL (130-430); RED BLOOD CELL COUNT(AUTO) 2.98 MIL/uL (4.2-6.2); RED CELL DISTRIBUTION WIDTH 18.1 % (9.0-15.0); WHITE BLOOD COUNT (AUTO) 16.1 K/uL (4.8-10.8)
[2020-02-24 06:09] LABS: ALBUMIN 1.6 g/dL (3.4-4.8); POTASSIUM 4.5 mmol/L (3.5-5.1); TOTAL BILIRUBIN 0.5 mg/dL (0.0-1.0)
[2020-02-24] MEDS ORDERED: hydrALAZINE HCL 20 MG/ML VIAL ONE (06:41)
[2020-02-24 06:44] LABS: CREATININE 8.04 mg/dL (0.55-1.30)
[2020-02-24 06:51] LABS: ERYTHROCYTE SEDIMENTATION RATE 117 MM/HR (0-15)
[2020-02-24] MEDS: INSULIN NPH 100 UNITS/ML 10 ML VIAL SUBCUT SCH ×2 (06:56→17:32)
[2020-02-24] MEDS: INSULIN LISPRO SLIDING SCALE 100 UNITS/ML VIAL (humaLOG) SUBCUT PRN ×2 (06:57→17:47)
[2020-02-24 07:09] LABS: C-REACTIVE PROTEIN QUANT 15.4 mg/dL (0-0.5)
[2020-02-24] MEDS: FERROUS SULFATE 300 MG/5 ML UDC GT SCH ×2 (08:10→21:57)
[2020-02-24] MEDS: FOLIC ACID 1 MG TABLET GT SCH (08:10)
[2020-02-24] MEDS: LINEZOLID 300 ML IV SCH ×2 (08:10→21:58)
[2020-02-24] MEDS: PIPERACILLIN/TAZO 2.25G/DEX-IS 50 ML IV SCH ×3 (08:10→23:44)
[2020-02-24] MEDS: amLODIPine BESYLATE 10 MG TABLET NG SCH (08:11)
[2020-02-24] MEDS: GABAPENTIN 300 MG CAPSULE GT SCH ×2 (08:11→21:58)
[2020-02-24] MEDS: LACTOBACILLUS RHAMNOSUS GG 1 CAP CAPSULE PO SCH ×2 (08:11→21:59)
[2020-02-24] MEDS: FAMOTIDINE PF 20 MG/2 ML VIAL IVP SCH (08:12)
[2020-02-24] MEDS: AMIODARONE HCL 200 MG TABLET NG SCH ×2 (08:12→21:59)
[2020-02-24] MEDS: DORZOLAMIDE 2% OPHTHALMIC SOLN 5ML OP SCH ×2 (08:13→22:18)
[2020-02-24] MEDS: DEXAMETHASONE SOD PHOSPHATE 10 MG/ML VIAL IVP SCH (08:13)
[2020-02-24] MEDS: BRIMONIDINE TARTRATE 0.2% 5 mL EYE DROPS EACH EYE SCH ×2 (08:13→22:18)
[2020-02-24] MEDS: BALSAM PERU/CASTOR OIL 60 GM OINT...G. TP SCH (08:14)
[2020-02-24] MEDS: HEPARIN SODIUM,PORCINE 5000 UNITS/ML VIAL SUBCUT SCH ×3 (08:15→22:01)
[2020-02-24 08:59] LABS: INR 1.1 (0.80-1.20); PROTHROMBIN TIME 10.6 SECS (9.5-12.5)
[2020-02-24] MEDS: MORPHINE I.V. DRIP 100 ML IV PRN ×2 (10:17→23:48)
[2020-02-24] MEDS ORDERED: HEPARIN SODIUM,PORCINE 5000 UNITS/ML VIAL IVP ONE (13:15)
[2020-02-24] MEDS ORDERED: ALBUMIN HUMAN 25% 100 ML IV ONE (14:15)
[2020-02-24] MEDS: EPOETIN ALFA 10,000 UNITS/ML VIAL SUBCUT SCH (17:28)
[2020-02-24 19:32] LABS: BILIRUBIN,URINE NEGATIVE (NEGATIVE); BLOOD, URINE NEGATIVE (NEGATIVE); CLARITY/URINE SL CLOUDY (CLEAR); COLOR,URINE YELLOW (YELLOW); GLUCOSE,URINE TRACE (NEGATIVE); KETONES,URINE NEGATIVE (NEGATIVE); LEUKOCYTE ESTERASE ,URINE 2+ (NEGATIVE); NITRITE, URINE NEGATIVE (NEGATIVE); PH,URINE 5.5 (5.0-8.0); PROTEIN URINE 2+ (NEGATIVE); UROBILINOGEN,URINE 0.2 (0.2-1.0)
[2020-02-24 19:41] LABS: BACTERIA,URINE FEW /HPF (None Seen); RBC,URINE 0-3 /HPF (0-3); WBC,URINE 80-100 /HPF (0-3)
[2020-02-24 19:42] LABS: MUCUS,URINE None Seen /LPF (None Seen); YEAST,URINE Many /HPF (None Seen)
[2020-02-24] MEDS: ATORVASTATIN 20 MG TABLET GT SCH (21:57)
[2020-02-25] VITALS (29 sets, daily range): BP systolic 120–164
[2020-02-25] MEDS: hydrALAZINE HCL 20 MG/ML VIAL IVP SCH ×4 (05:42→23:31)
[2020-02-25] MEDS: HEPARIN SODIUM,PORCINE 5000 UNITS/ML VIAL SUBCUT SCH ×3 (05:44→21:37)
[2020-02-25] MEDS: INSULIN NPH 100 UNITS/ML 10 ML VIAL SUBCUT SCH ×2 (06:09→16:53)
[2020-02-25] MEDS: INSULIN LISPRO SLIDING SCALE 100 UNITS/ML VIAL (humaLOG) SUBCUT PRN (06:11)
[2020-02-25 07:12] LABS: BASOPHILS # (AUTO) 0.1 K/uL (0.0-0.2); BASOPHILS % (AUTO) 0.4 % (0.0-2.0); EOSINOPHILS # (AUTO) 0.1 K/uL (0.0-0.4); EOSINOPHILS % (AUTO) 0.4 % (0.0-4.0); HEMATOCRIT 27.2 % (36-54); HEMOGLOBIN 8.9 g/dL (14.0-18.0); LYMPHOCYTES % (AUTO) 6.5 % (20.5-51.5); MEAN CORPUSCULAR HEMOGLOBIN 30 pg (27-31); MEAN CORPUSCULAR HGB CONC 33 % (32-36); MEAN CORPUSCULAR VOLUME 90 fL (79.0-98.0); MONOCYTES # (AUTO) 0.9 K/uL (0.0-1.0); MONOCYTES % (AUTO) 6.3 % (1.7-9.3); NEUTROPHILS # (AUTO) 12.8 K/uL (1.8-7.7); NEUTROPHILS % (AUTO) 86.4 % (40.0-70.0); PLATELET COUNT (AUTO) 457 K/uL (130-430); RED BLOOD CELL COUNT(AUTO) 3.02 MIL/uL (4.2-6.2); RED CELL DISTRIBUTION WIDTH 17.7 % (9.0-15.0); WHITE BLOOD COUNT (AUTO) 14.9 K/uL (4.8-10.8)
[2020-02-25 07:27] LABS: ALBUMIN 1.7 g/dL (3.4-4.8); CREATININE 7.06 mg/dL (0.55-1.30); POTASSIUM 4.6 mmol/L (3.5-5.1); TOTAL BILIRUBIN 0.3 mg/dL (0.0-1.0)
[2020-02-25] MEDS: FOLIC ACID 1 MG TABLET GT SCH (08:55)
[2020-02-25] MEDS: FAMOTIDINE PF 20 MG/2 ML VIAL IVP SCH (08:56)
[2020-02-25] MEDS: GABAPENTIN 300 MG CAPSULE GT SCH ×2 (08:56→20:18)
[2020-02-25] MEDS: DEXAMETHASONE SOD PHOSPHATE 10 MG/ML VIAL IVP SCH (08:56)
[2020-02-25] MEDS: AMIODARONE HCL 200 MG TABLET NG SCH ×2 (08:57→20:20)
[2020-02-25] MEDS: BALSAM PERU/CASTOR OIL 60 GM OINT...G. TP SCH (08:58)
[2020-02-25] MEDS: DORZOLAMIDE 2% OPHTHALMIC SOLN 5ML OP SCH ×2 (08:58→20:19)
[2020-02-25] MEDS: amLODIPine BESYLATE 10 MG TABLET NG SCH (08:58)
[2020-02-25] MEDS: LACTOBACILLUS RHAMNOSUS GG 1 CAP CAPSULE PO SCH ×2 (08:58→20:19)
[2020-02-25] MEDS: FERROUS SULFATE 300 MG/5 ML UDC GT SCH ×2 (08:59→20:18)
[2020-02-25] MEDS: PIPERACILLIN/TAZO 2.25G/DEX-IS 50 ML IV SCH ×3 (08:59→23:30)
[2020-02-25] MEDS: BRIMONIDINE TARTRATE 0.2% 5 mL EYE DROPS EACH EYE SCH ×2 (08:59→20:18)
[2020-02-25] MEDS: LINEZOLID 300 ML IV SCH ×2 (09:00→20:18)
[2020-02-25] MEDS: MIDAZOLAM HCL 50 MG in NS 50 ML IV PRN (12:52)
[2020-02-25] MEDS ORDERED: HEPARIN SODIUM, PORCINE 10,000 UNITS/ 10 ML VIAL MC ONE (15:00)
[2020-02-25] MEDS ORDERED: HEPARIN SODIUM,PORCINE 5000 UNITS/ML VIAL ONE (15:08)
[2020-02-25] MEDS: ALBUTEROL MDI INHALATION 8 GM INH INH SCH ×2 (16:16→23:38)
[2020-02-25] MEDS: ATORVASTATIN 20 MG TABLET GT SCH (20:18)
[2020-02-25] MEDS: MORPHINE I.V. DRIP 100 ML IV PRN (21:38)
[2020-02-26] VITALS (33 sets, daily range): BP systolic 104–147
[2020-02-26] MEDS ORDERED: hydrALAZINE HCL 20 MG/ML VIAL ONE (04:51)
[2020-02-26] MEDS: hydrALAZINE HCL 20 MG/ML VIAL IVP SCH ×3 (04:51→17:24)
[2020-02-26] MEDS: MIDAZOLAM HCL 50 MG in NS 50 ML IV PRN (04:53)
[2020-02-26] MEDS: HEPARIN SODIUM,PORCINE 5000 UNITS/ML VIAL SUBCUT SCH ×3 (04:53→22:12)
[2020-02-26 05:47] LABS: BASOPHILS # (AUTO) 0.1 K/uL (0.0-0.2); BASOPHILS % (AUTO) 0.5 % (0.0-2.0); EOSINOPHILS # (AUTO) 0.1 K/uL (0.0-0.4); HEMATOCRIT 24.8 % (36-54); HEMOGLOBIN 8.1 g/dL (14.0-18.0); LYMPHOCYTES # (AUTO) 1.3 K/uL (1.0-5.5); LYMPHOCYTES % (AUTO) 8.7 % (20.5-51.5); MEAN CORPUSCULAR HEMOGLOBIN 29 pg (27-31); MEAN CORPUSCULAR HGB CONC 33 % (32-36); MEAN CORPUSCULAR VOLUME 90 fL (79.0-98.0); MONOCYTES % (AUTO) 6.6 % (1.7-9.3); NEUTROPHILS # (AUTO) 12.2 K/uL (1.8-7.7); NEUTROPHILS % (AUTO) 83.2 % (40.0-70.0); PLATELET COUNT (AUTO) 416 K/uL (130-430); RED BLOOD CELL COUNT(AUTO) 2.76 MIL/uL (4.2-6.2); RED CELL DISTRIBUTION WIDTH 17.7 % (9.0-15.0); WHITE BLOOD COUNT (AUTO) 14.7 K/uL (4.8-10.8)
[2020-02-26] MEDS: INSULIN NPH 100 UNITS/ML 10 ML VIAL SUBCUT SCH ×2 (05:55→16:42)
[2020-02-26 06:07] LABS: ALBUMIN 1.6 g/dL (3.4-4.8); CALCIUM 7.6 mg/dL (8.4-11.0); CREATININE 6.46 mg/dL (0.55-1.30); POTASSIUM 4.6 mmol/L (3.5-5.1); TOTAL BILIRUBIN 0.4 mg/dL (0.0-1.0)
[2020-02-26] MEDS: INSULIN LISPRO SLIDING SCALE 100 UNITS/ML VIAL (humaLOG) SUBCUT PRN ×2 (06:22→16:40)
[2020-02-26] MEDS: ALBUTEROL MDI INHALATION 8 GM INH INH SCH ×3 (08:21→19:43)
[2020-02-26] MEDS: PIPERACILLIN/TAZO 2.25G/DEX-IS 50 ML IV SCH ×2 (08:35→16:17)
[2020-02-26] MEDS: LINEZOLID 300 ML IV SCH ×2 (08:36→22:08)
[2020-02-26] MEDS: GABAPENTIN 300 MG CAPSULE GT SCH ×2 (08:36→22:07)
[2020-02-26] MEDS: LACTOBACILLUS RHAMNOSUS GG 1 CAP CAPSULE PO SCH ×2 (08:38→22:10)
[2020-02-26] MEDS: AMIODARONE HCL 200 MG TABLET NG SCH ×2 (08:38→22:09)
[2020-02-26] MEDS: FOLIC ACID 1 MG TABLET GT SCH (08:38)
[2020-02-26] MEDS: FERROUS SULFATE 300 MG/5 ML UDC GT SCH ×2 (08:38→22:06)
[2020-02-26] MEDS: BRIMONIDINE TARTRATE 0.2% 5 mL EYE DROPS EACH EYE SCH ×2 (08:39→22:11)
[2020-02-26] MEDS: FAMOTIDINE PF 20 MG/2 ML VIAL IVP SCH (08:39)
[2020-02-26] MEDS: amLODIPine BESYLATE 10 MG TABLET NG SCH (08:39)
[2020-02-26] MEDS: DORZOLAMIDE 2% OPHTHALMIC SOLN 5ML OP SCH ×2 (08:39→22:10)
[2020-02-26] MEDS: BALSAM PERU/CASTOR OIL 60 GM OINT...G. TP SCH (08:39)
[2020-02-26] MEDS ORDERED: LIDOCAINE 1%, 20 ML MDV 0 ML ONE (11:28)
[2020-02-26] MEDS ORDERED: HEPARIN SODIUM,PORCINE 5000 UNITS/ML VIAL ONE ×2 (11:29→13:14)
[2020-02-26] MEDS: EPOETIN ALFA 10,000 UNITS/ML VIAL SUBCUT SCH (16:17)
[2020-02-26] MEDS: ATORVASTATIN 20 MG TABLET GT SCH (22:07)
[2020-02-27] VITALS (28 sets, daily range): BP systolic 74–140
[2020-02-27] MEDS: PIPERACILLIN/TAZO 2.25G/DEX-IS 50 ML IV SCH ×4 (00:54→23:37)
[2020-02-27] MEDS: ALBUTEROL MDI INHALATION 8 GM INH INH SCH ×2 (01:51→19:53)
[2020-02-27] MEDS: INSULIN LISPRO SLIDING SCALE 100 UNITS/ML VIAL (humaLOG) SUBCUT PRN ×2 (03:40→17:59)
[2020-02-27] MEDS: hydrALAZINE HCL 20 MG/ML VIAL IVP SCH ×5 (05:01→23:38)
[2020-02-27] MEDS: HEPARIN SODIUM,PORCINE 5000 UNITS/ML VIAL SUBCUT SCH ×2 (05:03→13:15)
[2020-02-27 06:13] LABS: CALCIUM 7.4 mg/dL (8.4-11.0); CREATININE 6.67 mg/dL (0.55-1.30); POTASSIUM 4.4 mmol/L (3.5-5.1)
[2020-02-27 06:15] LABS: BASOPHILS # (AUTO) 0.2 K/uL (0.0-0.2); BASOPHILS % (AUTO) 1.2 % (0.0-2.0); EOSINOPHILS # (AUTO) 0.3 K/uL (0.0-0.4); EOSINOPHILS % (AUTO) 2.3 % (0.0-4.0); HEMATOCRIT 25.1 % (36-54); LYMPHOCYTES % (AUTO) 14.7 % (20.5-51.5); MEAN CORPUSCULAR HEMOGLOBIN 29 pg (27-31); MEAN CORPUSCULAR HGB CONC 32 % (32-36); MEAN CORPUSCULAR VOLUME 91 fL (79.0-98.0); MONOCYTES # (AUTO) 0.8 K/uL (0.0-1.0); MONOCYTES % (AUTO) 5.7 % (1.7-9.3); NEUTROPHILS # (AUTO) 10.2 K/uL (1.8-7.7); NEUTROPHILS % (AUTO) 76.1 % (40.0-70.0); PLATELET COUNT (AUTO) 352 K/uL (130-430); RED BLOOD CELL COUNT(AUTO) 2.77 MIL/uL (4.2-6.2); RED CELL DISTRIBUTION WIDTH 17.5 % (9.0-15.0); WHITE BLOOD COUNT (AUTO) 13.4 K/uL (4.8-10.8)
[2020-02-27 06:39] LABS: INR 1.1 (0.80-1.20); PROTHROMBIN TIME 10.7 SECS (9.5-12.5)
[2020-02-27] MEDS: INSULIN NPH 100 UNITS/ML 10 ML VIAL SUBCUT SCH ×2 (06:43→18:01)
[2020-02-27] MEDS: FERROUS SULFATE 300 MG/5 ML UDC GT SCH ×2 (08:54→21:30)
[2020-02-27] MEDS: GABAPENTIN 300 MG CAPSULE GT SCH ×2 (08:54→21:31)
[2020-02-27] MEDS: amLODIPine BESYLATE 10 MG TABLET NG SCH (08:55)
[2020-02-27] MEDS: AMIODARONE HCL 200 MG TABLET NG SCH ×2 (08:56→21:32)
[2020-02-27] MEDS: FAMOTIDINE PF 20 MG/2 ML VIAL IVP SCH (08:56)
[2020-02-27] MEDS: LACTOBACILLUS RHAMNOSUS GG 1 CAP CAPSULE PO SCH ×2 (08:56→21:33)
[2020-02-27] MEDS: FOLIC ACID 1 MG TABLET GT SCH (08:57)
[2020-02-27] MEDS: BRIMONIDINE TARTRATE 0.2% 5 mL EYE DROPS EACH EYE SCH ×2 (08:58→21:30)
[2020-02-27] MEDS: DORZOLAMIDE 2% OPHTHALMIC SOLN 5ML OP SCH ×2 (08:59→21:33)
[2020-02-27] MEDS: LINEZOLID 300 ML IV SCH ×2 (09:00→21:31)
[2020-02-27] MEDS: BALSAM PERU/CASTOR OIL 60 GM OINT...G. TP SCH (09:01)
[2020-02-27] MEDS: ACETAMINOPHEN 650 MG/20.3 ML UDC GT PRN (15:52)
[2020-02-27 16:00] LABS: HEMATOCRIT 25.7 % (36-54); HEMOGLOBIN 8.2 g/dL (14.0-18.0)
[2020-02-27] MEDS: MIDAZOLAM HCL 50 MG in NS 50 ML IV PRN (18:04)
[2020-02-27] MEDS ORDERED: HEPARIN SODIUM,PORCINE 5000 UNITS/ML VIAL SUBCUT ONE (19:00)
[2020-02-27] MEDS ORDERED: ALBUMIN HUMAN 25% 50 ML IV ONE ×2 (19:15→19:30)
[2020-02-27] MEDS ORDERED: ALBUMIN HUMAN 25% 50 ML IV PRN (19:30)
[2020-02-27] MEDS ORDERED: NOREPINEPHRINE 4 MG/4 ML VIAL IV ONE (20:04)
[2020-02-27] MEDS: NOREPINEPHRINE BITARTRATE 4 MG in NS 246 ML IV PRN (20:16)
[2020-02-27] MEDS ORDERED: HEPARIN SODIUM, PORCINE 10,000 UNITS/ 10 ML VIAL MC PRN (20:30)
[2020-02-27] MEDS ORDERED: HEPARIN SODIUM, PORCINE 10,000 UNITS/ 10 ML VIAL IV ONE (20:30)
[2020-02-27] MEDS ORDERED: HEPARIN SODIUM,PORCINE 5000 UNITS/ML VIAL ONE (20:51)
[2020-02-27] MEDS: ATORVASTATIN 20 MG TABLET GT SCH (21:30)
[2020-02-27] MEDS: PANTOPRAZOLE SODIUM 40 MG/VIAL (PROTONIX) IVP SCH (21:32)
[2020-02-28] VITALS (35 sets, daily range): BP systolic 99–157
[2020-02-28] MEDS: ALBUTEROL MDI INHALATION 8 GM INH INH SCH ×2 (01:35→19:57)
[2020-02-28] MEDS ORDERED: CEFEPIME 0.5 GM in D5W 50 ML IV SCH (01:45)
[2020-02-28 05:50] LABS: BASOPHILS # (AUTO) 0.1 K/uL (0.0-0.2); BASOPHILS % (AUTO) 0.9 % (0.0-2.0); EOSINOPHILS # (AUTO) 0.4 K/uL (0.0-0.4); EOSINOPHILS % (AUTO) 3.4 % (0.0-4.0); HEMATOCRIT 25.3 % (36-54); HEMOGLOBIN 8.2 g/dL (14.0-18.0); LYMPHOCYTES # (AUTO) 1.4 K/uL (1.0-5.5); LYMPHOCYTES % (AUTO) 10.4 % (20.5-51.5); MEAN CORPUSCULAR HEMOGLOBIN 29 pg (27-31); MEAN CORPUSCULAR HGB CONC 32 % (32-36); MEAN CORPUSCULAR VOLUME 91 fL (79.0-98.0); MONOCYTES # (AUTO) 0.8 K/uL (0.0-1.0); MONOCYTES % (AUTO) 5.8 % (1.7-9.3); NEUTROPHILS # (AUTO) 10.4 K/uL (1.8-7.7); NEUTROPHILS % (AUTO) 79.5 % (40.0-70.0); PLATELET COUNT (AUTO) 305 K/uL (130-430); RED BLOOD CELL COUNT(AUTO) 2.78 MIL/uL (4.2-6.2); RED CELL DISTRIBUTION WIDTH 17.5 % (9.0-15.0); WHITE BLOOD COUNT (AUTO) 13.1 K/uL (4.8-10.8)
[2020-02-28 05:55] LABS: CALCIUM 7.7 mg/dL (8.4-11.0); CREATININE 5.48 mg/dL (0.55-1.30); POTASSIUM 3.7 mmol/L (3.5-5.1)
[2020-02-28] MEDS: hydrALAZINE HCL 20 MG/ML VIAL IVP SCH ×3 (06:28→17:40)
[2020-02-28] MEDS: INSULIN NPH 100 UNITS/ML 10 ML VIAL SUBCUT SCH ×2 (06:34→17:40)
[2020-02-28] MEDS: PANTOPRAZOLE SODIUM 40 MG/VIAL (PROTONIX) IVP SCH ×2 (08:38→20:19)
[2020-02-28] MEDS: FOLIC ACID 1 MG TABLET GT SCH (08:40)
[2020-02-28] MEDS: LACTOBACILLUS RHAMNOSUS GG 1 CAP CAPSULE PO SCH ×2 (08:40→20:19)
[2020-02-28] MEDS: FERROUS SULFATE 300 MG/5 ML UDC GT SCH ×2 (08:40→20:18)
[2020-02-28] MEDS: GABAPENTIN 300 MG CAPSULE GT SCH ×2 (08:41→20:19)
[2020-02-28] MEDS: LINEZOLID 300 ML IV SCH ×2 (08:42→20:24)
[2020-02-28] MEDS: CEFEPIME 0.5 GM in D5W 50 ML IV SCH (08:42)
[2020-02-28] MEDS: amLODIPine BESYLATE 10 MG TABLET NG SCH (09:00)
[2020-02-28] MEDS: BALSAM PERU/CASTOR OIL 60 GM OINT...G. TP SCH (09:00)
[2020-02-28] MEDS: AMIODARONE HCL 200 MG TABLET NG SCH ×2 (09:00→20:20)
[2020-02-28] MEDS: BRIMONIDINE TARTRATE 0.2% 5 mL EYE DROPS EACH EYE SCH ×2 (09:38→20:23)
[2020-02-28] MEDS: DORZOLAMIDE 2% OPHTHALMIC SOLN 5ML OP SCH ×2 (09:38→20:25)
[2020-02-28] MEDS: MIDAZOLAM HCL 50 MG in NS 50 ML IV PRN (11:15)
[2020-02-28] MEDS ORDERED: COMMUNICATION ORDER XX ONE (16:15)
[2020-02-28] MEDS ORDERED: MORPHINE I.V. DRIP 100 ML IV PRN (16:30)
[2020-02-28] MEDS ORDERED: MIDAZOLAM HCL 50 MG in NS 50 ML IV PRN (16:30)
[2020-02-28] MEDS ORDERED: LORazepam 2 MG/ML VIAL IVP PRN (17:15)
[2020-02-28] MEDS: INSULIN LISPRO SLIDING SCALE 100 UNITS/ML VIAL (humaLOG) SUBCUT PRN (17:37)
[2020-02-28] MEDS: LORazepam 2 MG/ML VIAL IVP PRN (20:19)
[2020-02-28] MEDS: ATORVASTATIN 20 MG TABLET GT SCH (20:19)
[2020-02-28] MEDS: QUEtiapine FUMARATE 25 MG TABLET PO SCH (20:19)
[2020-02-29] VITALS (31 sets, daily range): BP systolic 97–175
[2020-02-29] MEDS: ALBUTEROL MDI INHALATION 8 GM INH INH SCH ×4 (01:00→19:46)
[2020-02-29] MEDS: LORazepam 2 MG/ML VIAL IVP PRN (04:46)
[2020-02-29] MEDS: hydrALAZINE HCL 20 MG/ML VIAL IVP SCH ×4 (06:28→18:21)
[2020-02-29] MEDS: INSULIN NPH 100 UNITS/ML 10 ML VIAL SUBCUT SCH ×2 (07:19→16:15)
[2020-02-29] MEDS: INSULIN LISPRO SLIDING SCALE 100 UNITS/ML VIAL (humaLOG) SUBCUT PRN ×2 (07:19→18:45)
[2020-02-29 08:03] LABS: BASOPHILS # (AUTO) 0.1 K/uL (0.0-0.2); BASOPHILS % (AUTO) 0.8 % (0.0-2.0); EOSINOPHILS # (AUTO) 0.5 K/uL (0.0-0.4); HEMATOCRIT 27.3 % (36-54); HEMOGLOBIN 8.7 g/dL (14.0-18.0); LYMPHOCYTES % (AUTO) 6.2 % (20.5-51.5); MEAN CORPUSCULAR HEMOGLOBIN 29 pg (27-31); MEAN CORPUSCULAR HGB CONC 32 % (32-36); MEAN CORPUSCULAR VOLUME 90 fL (79.0-98.0); MONOCYTES # (AUTO) 0.8 K/uL (0.0-1.0); MONOCYTES % (AUTO) 4.6 % (1.7-9.3); NEUTROPHILS # (AUTO) 14.2 K/uL (1.8-7.7); NEUTROPHILS % (AUTO) 85.4 % (40.0-70.0); PLATELET COUNT (AUTO) 278 K/uL (130-430); RED BLOOD CELL COUNT(AUTO) 3.04 MIL/uL (4.2-6.2); WHITE BLOOD COUNT (AUTO) 16.7 K/uL (4.8-10.8)
[2020-02-29] MEDS: GABAPENTIN 300 MG CAPSULE GT SCH ×2 (08:06→21:14)
[2020-02-29] MEDS: PANTOPRAZOLE SODIUM 40 MG/VIAL (PROTONIX) IVP SCH ×2 (08:06→21:14)
[2020-02-29] MEDS: LACTOBACILLUS RHAMNOSUS GG 1 CAP CAPSULE PO SCH ×2 (08:07→21:12)
[2020-02-29] MEDS: QUEtiapine FUMARATE 25 MG TABLET PO SCH ×2 (08:07→21:00)
[2020-02-29] MEDS: FERROUS SULFATE 300 MG/5 ML UDC GT SCH ×2 (08:07→21:12)
[2020-02-29] MEDS: FOLIC ACID 1 MG TABLET GT SCH (08:07)
[2020-02-29] MEDS: amLODIPine BESYLATE 10 MG TABLET NG SCH (08:08)
[2020-02-29] MEDS: AMIODARONE HCL 200 MG TABLET NG SCH ×2 (08:08→21:13)
[2020-02-29] MEDS: BALSAM PERU/CASTOR OIL 60 GM OINT...G. TP SCH (08:10)
[2020-02-29] MEDS: LINEZOLID 300 ML IV SCH ×2 (08:11→21:16)
[2020-02-29] MEDS: BRIMONIDINE TARTRATE 0.2% 5 mL EYE DROPS EACH EYE SCH ×2 (08:11→21:35)
[2020-02-29 08:30] LABS: CALCIUM 7.8 mg/dL (8.4-11.0); CREATININE 6.77 mg/dL (0.55-1.30); POTASSIUM 4.6 mmol/L (3.5-5.1)
[2020-02-29] MEDS: DORZOLAMIDE 2% OPHTHALMIC SOLN 5ML OP SCH ×2 (09:34→21:34)
[2020-02-29] MEDS: CEFEPIME 0.5 GM in D5W 50 ML IV SCH (11:30)
[2020-02-29] MEDS ORDERED: ALBUMIN HUMAN 25% 50 ML IV PRN (12:00)
[2020-02-29] MEDS ORDERED: COMMUNICATION ORDER XX ONE (12:00)
[2020-02-29] MEDS ORDERED: HEPARIN SODIUM,PORCINE 5000 UNITS/ML VIAL SUBCUT ONE ×2 (12:45)
[2020-02-29] MEDS ORDERED: DEXTROSE 50% JECT 50 ML DISP.SYRIN IVP PRN (16:00)
[2020-02-29] MEDS: EPOETIN ALFA 10,000 UNITS/ML VIAL SUBCUT SCH (16:05)
[2020-02-29] MEDS: ATORVASTATIN 20 MG TABLET GT SCH (21:13)
[2020-03-01] VITALS (33 sets, daily range): BP systolic 90–136
[2020-03-01] MEDS: INSULIN LISPRO SLIDING SCALE 100 UNITS/ML VIAL (humaLOG) SUBCUT PRN ×4 (00:10→18:01)
[2020-03-01] MEDS: ALBUTEROL MDI INHALATION 8 GM INH INH SCH ×4 (01:23→19:49)
[2020-03-01 05:45] LABS: MEAN CORPUSCULAR VOLUME 89 fL (79.0-98.0); MONOCYTES # (AUTO) 0.7 K/uL (0.0-1.0); RED CELL DISTRIBUTION WIDTH 16.5 % (9.0-15.0)
[2020-03-01 05:49] LABS: BASOPHILS # (AUTO) 0.1 K/uL (0.0-0.2); BASOPHILS % (AUTO) 0.7 % (0.0-2.0); EOSINOPHILS # (AUTO) 0.5 K/uL (0.0-0.4); EOSINOPHILS % (AUTO) 4.1 % (0.0-4.0); HEMOGLOBIN 7.3 g/dL (14.0-18.0); LYMPHOCYTES # (AUTO) 1.4 K/uL (1.0-5.5); LYMPHOCYTES % (AUTO) 11.5 % (20.5-51.5); MEAN CORPUSCULAR HEMOGLOBIN 29 pg (27-31); MEAN CORPUSCULAR HGB CONC 32 % (32-36); NEUTROPHILS # (AUTO) 9.7 K/uL (1.8-7.7); NEUTROPHILS % (AUTO) 77.7 % (40.0-70.0); PLATELET COUNT (AUTO) 234 K/uL (130-430); RED BLOOD CELL COUNT(AUTO) 2.58 MIL/uL (4.2-6.2); WHITE BLOOD COUNT (AUTO) 12.4 K/uL (4.8-10.8)
[2020-03-01 06:00] LABS: CALCIUM 7.8 mg/dL (8.4-11.0); CREATININE 5.57 mg/dL (0.55-1.30); POTASSIUM 3.3 mmol/L (3.5-5.1)
[2020-03-01] MEDS: hydrALAZINE HCL 20 MG/ML VIAL IVP SCH ×4 (06:11→18:00)
[2020-03-01] MEDS: INSULIN NPH 100 UNITS/ML 10 ML VIAL SUBCUT SCH ×2 (06:23→17:43)
[2020-03-01] MEDS: FERROUS SULFATE 300 MG/5 ML UDC GT SCH ×2 (08:13→20:52)
[2020-03-01] MEDS: amLODIPine BESYLATE 10 MG TABLET NG SCH (08:14)
[2020-03-01] MEDS: FOLIC ACID 1 MG TABLET GT SCH (08:14)
[2020-03-01] MEDS: AMIODARONE HCL 200 MG TABLET NG SCH ×2 (08:15→20:54)
[2020-03-01] MEDS: LACTOBACILLUS RHAMNOSUS GG 1 CAP CAPSULE PO SCH ×2 (08:16→20:54)
[2020-03-01] MEDS: PANTOPRAZOLE SODIUM 40 MG/VIAL (PROTONIX) IVP SCH ×2 (08:16→20:53)
[2020-03-01] MEDS: LINEZOLID 300 ML IV SCH ×2 (08:17→20:53)
[2020-03-01] MEDS: GABAPENTIN 300 MG CAPSULE GT SCH ×2 (08:17→20:52)
[2020-03-01] MEDS: DORZOLAMIDE 2% OPHTHALMIC SOLN 5ML OP SCH ×2 (08:18→20:54)
[2020-03-01] MEDS: QUEtiapine FUMARATE 25 MG TABLET PO SCH ×2 (08:18→20:41)
[2020-03-01] MEDS: BRIMONIDINE TARTRATE 0.2% 5 mL EYE DROPS EACH EYE SCH ×2 (08:18→20:52)
[2020-03-01] MEDS: BALSAM PERU/CASTOR OIL 60 GM OINT...G. TP SCH (08:18)
[2020-03-01] MEDS: CEFEPIME 0.5 GM in D5W 50 ML IV SCH (11:03)
[2020-03-01] MEDS ORDERED: POTASSIUM CHLORIDE 20 MEQ/PKT PACKET PO ONE (15:00)
[2020-03-01] MEDS: ATORVASTATIN 20 MG TABLET GT SCH (20:52)
[2020-03-02] VITALS (30 sets, daily range): BP systolic 95–137
[2020-03-02] MEDS: ALBUTEROL MDI INHALATION 8 GM INH INH SCH (03:28)
[2020-03-02 05:31] LABS: BASOPHILS # (AUTO) 0.2 K/uL (0.0-0.2); BASOPHILS % (AUTO) 1.4 % (0.0-2.0); EOSINOPHILS # (AUTO) 0.6 K/uL (0.0-0.4); EOSINOPHILS % (AUTO) 4.5 % (0.0-4.0); HEMATOCRIT 23.6 % (36-54); HEMOGLOBIN 7.7 g/dL (14.0-18.0); LYMPHOCYTES # (AUTO) 1.4 K/uL (1.0-5.5); LYMPHOCYTES % (AUTO) 10.8 % (20.5-51.5); MEAN CORPUSCULAR HEMOGLOBIN 29 pg (27-31); MEAN CORPUSCULAR HGB CONC 33 % (32-36); MEAN CORPUSCULAR VOLUME 88 fL (79.0-98.0); MONOCYTES # (AUTO) 0.9 K/uL (0.0-1.0); MONOCYTES % (AUTO) 6.5 % (1.7-9.3); NEUTROPHILS # (AUTO) 10.4 K/uL (1.8-7.7); NEUTROPHILS % (AUTO) 76.8 % (40.0-70.0); PLATELET COUNT (AUTO) 229 K/uL (130-430); RED BLOOD CELL COUNT(AUTO) 2.67 MIL/uL (4.2-6.2); RED CELL DISTRIBUTION WIDTH 16.2 % (9.0-15.0); WHITE BLOOD COUNT (AUTO) 13.5 K/uL (4.8-10.8)
[2020-03-02 05:42] LABS: CALCIUM 7.6 mg/dL (8.4-11.0); CREATININE 6.76 mg/dL (0.55-1.30); POTASSIUM 3.7 mmol/L (3.5-5.1)
[2020-03-02] MEDS: hydrALAZINE HCL 20 MG/ML VIAL IVP SCH ×4 (06:21→17:23)
[2020-03-02] MEDS: INSULIN LISPRO SLIDING SCALE 100 UNITS/ML VIAL (humaLOG) SUBCUT PRN ×3 (06:44→18:11)
[2020-03-02] MEDS: INSULIN NPH 100 UNITS/ML 10 ML VIAL SUBCUT SCH ×2 (06:46→17:30)
[2020-03-02] MEDS: LINEZOLID 300 ML IV SCH (08:23)
[2020-03-02] MEDS: PANTOPRAZOLE SODIUM 40 MG/VIAL (PROTONIX) IVP SCH ×2 (08:23→20:16)
[2020-03-02] MEDS: FOLIC ACID 1 MG TABLET GT SCH (08:24)
[2020-03-02] MEDS: FERROUS SULFATE 300 MG/5 ML UDC GT SCH ×2 (08:24→20:16)
[2020-03-02] MEDS: amLODIPine BESYLATE 10 MG TABLET NG SCH (08:24)
[2020-03-02] MEDS: GABAPENTIN 300 MG CAPSULE GT SCH ×2 (08:25→20:16)
[2020-03-02] MEDS: AMIODARONE HCL 200 MG TABLET NG SCH ×2 (08:25→20:18)
[2020-03-02] MEDS: LACTOBACILLUS RHAMNOSUS GG 1 CAP CAPSULE PO SCH ×2 (08:25→20:16)
[2020-03-02] MEDS: BALSAM PERU/CASTOR OIL 60 GM OINT...G. TP SCH (08:26)
[2020-03-02] MEDS: QUEtiapine FUMARATE 25 MG TABLET PO SCH ×2 (08:26→20:16)
[2020-03-02] MEDS: DORZOLAMIDE 2% OPHTHALMIC SOLN 5ML OP SCH ×2 (08:26→21:11)
[2020-03-02] MEDS: BRIMONIDINE TARTRATE 0.2% 5 mL EYE DROPS EACH EYE SCH ×2 (08:27→21:11)
[2020-03-02] MEDS ORDERED: ALTEPLASE 2 MG VIAL MC ONE (10:45)
[2020-03-02] MEDS: CEFEPIME 0.5 GM in D5W 50 ML IV SCH (14:41)
[2020-03-02] MEDS ORDERED: HEPARIN SODIUM, PORCINE 10,000 UNITS/ 10 ML VIAL MC ONE ×2 (15:45)
[2020-03-02] MEDS ORDERED: ALBUMIN HUMAN 25% 200 ML IV ONE (15:45)
[2020-03-02] MEDS ORDERED: HEPARIN SODIUM,PORCINE 5000 UNITS/ML VIAL MC ONE ×2 (16:00)
[2020-03-02] MEDS: EPOETIN ALFA 10,000 UNITS/ML VIAL SUBCUT SCH (17:28)
[2020-03-02] MEDS: ATORVASTATIN 20 MG TABLET GT SCH (20:16)
[2020-03-03] VITALS (32 sets, daily range): BP systolic 102–136
[2020-03-03] MEDS: hydrALAZINE HCL 20 MG/ML VIAL IVP SCH ×4 (01:37→17:45)
[2020-03-03] MEDS: INSULIN LISPRO SLIDING SCALE 100 UNITS/ML VIAL (humaLOG) SUBCUT PRN ×4 (01:41→18:47)
[2020-03-03 05:37] LABS: BASOPHILS # (AUTO) 0.1 K/uL (0.0-0.2); HEMOGLOBIN 8.6 g/dL (14.0-18.0)
[2020-03-03 05:43] LABS: BASOPHILS % (AUTO) 0.7 % (0.0-2.0); EOSINOPHILS # (AUTO) 0.6 K/uL (0.0-0.4); EOSINOPHILS % (AUTO) 4.4 % (0.0-4.0); HEMATOCRIT 26.7 % (36-54); LYMPHOCYTES # (AUTO) 1.6 K/uL (1.0-5.5); LYMPHOCYTES % (AUTO) 11.4 % (20.5-51.5); MEAN CORPUSCULAR HEMOGLOBIN 28 pg (27-31); MEAN CORPUSCULAR HGB CONC 32 % (32-36); MEAN CORPUSCULAR VOLUME 88 fL (79.0-98.0); MONOCYTES # (AUTO) 0.9 K/uL (0.0-1.0); NEUTROPHILS # (AUTO) 10.4 K/uL (1.8-7.7); NEUTROPHILS % (AUTO) 76.5 % (40.0-70.0); PLATELET COUNT (AUTO) 212 K/uL (130-430); RED BLOOD CELL COUNT(AUTO) 3.03 MIL/uL (4.2-6.2); RED CELL DISTRIBUTION WIDTH 16.6 % (9.0-15.0); WHITE BLOOD COUNT (AUTO) 13.6 K/uL (4.8-10.8)
[2020-03-03 05:58] LABS: ALBUMIN 2.2 g/dL (3.4-4.8); CREATININE 5.54 mg/dL (0.55-1.30); POTASSIUM 3.8 mmol/L (3.5-5.1); TOTAL BILIRUBIN 0.5 mg/dL (0.0-1.0)
[2020-03-03] MEDS: INSULIN NPH 100 UNITS/ML 10 ML VIAL SUBCUT SCH ×2 (06:18→17:47)
[2020-03-03] MEDS: PANTOPRAZOLE SODIUM 40 MG/VIAL (PROTONIX) IVP SCH ×2 (08:45→20:31)
[2020-03-03] MEDS: FOLIC ACID 1 MG TABLET GT SCH (08:45)
[2020-03-03] MEDS: LACTOBACILLUS RHAMNOSUS GG 1 CAP CAPSULE PO SCH ×2 (08:45→20:33)
[2020-03-03] MEDS: AMIODARONE HCL 200 MG TABLET NG SCH ×2 (08:46→20:34)
[2020-03-03] MEDS: amLODIPine BESYLATE 10 MG TABLET NG SCH (08:47)
[2020-03-03] MEDS: BALSAM PERU/CASTOR OIL 60 GM OINT...G. TP SCH (08:47)
[2020-03-03] MEDS: DORZOLAMIDE 2% OPHTHALMIC SOLN 5ML OP SCH ×2 (08:47→20:55)
[2020-03-03] MEDS: QUEtiapine FUMARATE 25 MG TABLET PO SCH ×2 (08:48→20:33)
[2020-03-03] MEDS: BRIMONIDINE TARTRATE 0.2% 5 mL EYE DROPS EACH EYE SCH ×2 (08:48→21:00)
[2020-03-03] MEDS: FERROUS SULFATE 300 MG/5 ML UDC GT SCH ×2 (08:48→20:31)
[2020-03-03] MEDS: GABAPENTIN 300 MG CAPSULE GT SCH ×2 (10:18→20:33)
[2020-03-03] MEDS: CEFEPIME 0.5 GM in D5W 50 ML IV SCH (12:25)
[2020-03-03] MEDS: ALBUTEROL MDI INHALATION 8 GM INH INH SCH (19:50)
[2020-03-03] MEDS: ATORVASTATIN 20 MG TABLET GT SCH (20:33)
[2020-03-03] MEDS: HEPARIN SODIUM,PORCINE 5000 UNITS/ML VIAL SUBCUT SCH (20:33)
[2020-03-04] VITALS (35 sets, daily range): BP systolic 95–133
[2020-03-04] MEDS: INSULIN LISPRO SLIDING SCALE 100 UNITS/ML VIAL (humaLOG) SUBCUT PRN ×4 (00:16→17:36)
[2020-03-04] MEDS: ALBUTEROL MDI INHALATION 8 GM INH INH SCH ×3 (02:43→22:10)
[2020-03-04] MEDS: hydrALAZINE HCL 20 MG/ML VIAL IVP SCH ×4 (06:00→17:04)
[2020-03-04] MEDS: INSULIN NPH 100 UNITS/ML 10 ML VIAL SUBCUT SCH ×2 (06:31→16:13)
[2020-03-04] MEDS: PANTOPRAZOLE SODIUM 40 MG/VIAL (PROTONIX) IVP SCH ×2 (08:07→21:22)
[2020-03-04] MEDS: FERROUS SULFATE 300 MG/5 ML UDC GT SCH ×2 (08:07→21:21)
[2020-03-04] MEDS: GABAPENTIN 300 MG CAPSULE GT SCH ×2 (08:08→21:22)
[2020-03-04] MEDS: amLODIPine BESYLATE 10 MG TABLET NG SCH (08:08)
[2020-03-04] MEDS: LACTOBACILLUS RHAMNOSUS GG 1 CAP CAPSULE PO SCH ×2 (08:08→21:23)
[2020-03-04] MEDS: QUEtiapine FUMARATE 25 MG TABLET PO SCH ×2 (08:08→21:23)
[2020-03-04] MEDS: FOLIC ACID 1 MG TABLET GT SCH (08:08)
[2020-03-04] MEDS: DORZOLAMIDE 2% OPHTHALMIC SOLN 5ML OP SCH ×2 (08:12→21:24)
[2020-03-04] MEDS: AMIODARONE HCL 200 MG TABLET NG SCH ×2 (08:12→21:23)
[2020-03-04] MEDS: BRIMONIDINE TARTRATE 0.2% 5 mL EYE DROPS EACH EYE SCH ×2 (08:12→21:24)
[2020-03-04] MEDS: BALSAM PERU/CASTOR OIL 60 GM OINT...G. TP SCH (08:12)
[2020-03-04] MEDS: HEPARIN SODIUM,PORCINE 5000 UNITS/ML VIAL SUBCUT SCH ×2 (08:15→21:27)
[2020-03-04 08:33] LABS: BASOPHILS # (AUTO) 0.1 K/uL (0.0-0.2); BASOPHILS % (AUTO) 0.7 % (0.0-2.0); EOSINOPHILS # (AUTO) 0.4 K/uL (0.0-0.4); HEMATOCRIT 25.8 % (36-54); HEMOGLOBIN 8.4 g/dL (14.0-18.0); LYMPHOCYTES # (AUTO) 1.5 K/uL (1.0-5.5); LYMPHOCYTES % (AUTO) 10.1 % (20.5-51.5); MEAN CORPUSCULAR HEMOGLOBIN 29 pg (27-31); MEAN CORPUSCULAR HGB CONC 33 % (32-36); MONOCYTES # (AUTO) 0.8 K/uL (0.0-1.0); MONOCYTES % (AUTO) 5.8 % (1.7-9.3); NEUTROPHILS # (AUTO) 11.6 K/uL (1.8-7.7); NEUTROPHILS % (AUTO) 80.4 % (40.0-70.0); PLATELET COUNT (AUTO) 255 K/uL (130-430); RED BLOOD CELL COUNT(AUTO) 2.88 MIL/uL (4.2-6.2); RED CELL DISTRIBUTION WIDTH 16.7 % (9.0-15.0); WHITE BLOOD COUNT (AUTO) 14.5 K/uL (4.8-10.8)
[2020-03-04 08:40] LABS: MEAN CORPUSCULAR VOLUME 90 fL (79.0-98.0)
[2020-03-04 10:03] LABS: ALBUMIN 1.9 g/dL (3.4-4.8); CREATININE 7.06 mg/dL (0.55-1.30); POTASSIUM 4.2 mmol/L (3.5-5.1); TOTAL BILIRUBIN 0.3 mg/dL (0.0-1.0)
[2020-03-04] MEDS: CEFEPIME 0.5 GM in D5W 50 ML IV SCH (11:18)
[2020-03-04] MEDS ORDERED: ALBUMIN HUMAN 25% 100 ML IV ONE (12:45)
[2020-03-04] MEDS ORDERED: HEPARIN SODIUM,PORCINE 5000 UNITS/ML VIAL MC ONE ×2 (12:45)
[2020-03-04] MEDS: LORazepam 2 MG/ML VIAL IVP PRN ×2 (15:25→22:13)
[2020-03-04] MEDS: EPOETIN ALFA 10,000 UNITS/ML VIAL SUBCUT SCH (16:12)
[2020-03-04] MEDS: ATORVASTATIN 20 MG TABLET GT SCH (21:21)
[2020-03-05] VITALS (36 sets, daily range): BP systolic 100–137
[2020-03-05] MEDS: hydrALAZINE HCL 20 MG/ML VIAL IVP SCH ×4 (00:20→17:16)
[2020-03-05] MEDS: INSULIN LISPRO SLIDING SCALE 100 UNITS/ML VIAL (humaLOG) SUBCUT PRN ×5 (00:37→23:46)
[2020-03-05 05:51] LABS: BASOPHILS # (AUTO) 0.1 K/uL (0.0-0.2); BASOPHILS % (AUTO) 0.5 % (0.0-2.0); EOSINOPHILS # (AUTO) 0.4 K/uL (0.0-0.4); EOSINOPHILS % (AUTO) 2.9 % (0.0-4.0); HEMATOCRIT 25.3 % (36-54); HEMOGLOBIN 8.1 g/dL (14.0-18.0); LYMPHOCYTES # (AUTO) 1.3 K/uL (1.0-5.5); LYMPHOCYTES % (AUTO) 9.4 % (20.5-51.5); MEAN CORPUSCULAR HEMOGLOBIN 29 pg (27-31); MEAN CORPUSCULAR HGB CONC 32 % (32-36); MEAN CORPUSCULAR VOLUME 89 fL (79.0-98.0); MONOCYTES # (AUTO) 0.7 K/uL (0.0-1.0); MONOCYTES % (AUTO) 5.1 % (1.7-9.3); NEUTROPHILS # (AUTO) 11.1 K/uL (1.8-7.7); NEUTROPHILS % (AUTO) 82.1 % (40.0-70.0); PLATELET COUNT (AUTO) 278 K/uL (130-430); RED BLOOD CELL COUNT(AUTO) 2.84 MIL/uL (4.2-6.2); RED CELL DISTRIBUTION WIDTH 16.4 % (9.0-15.0); WHITE BLOOD COUNT (AUTO) 13.5 K/uL (4.8-10.8)
[2020-03-05 06:03] LABS: CALCIUM 7.7 mg/dL (8.4-11.0); CREATININE 5.71 mg/dL (0.55-1.30); POTASSIUM 4.1 mmol/L (3.5-5.1)
[2020-03-05 06:07] LABS: INR 1.1 (0.80-1.20); PROTHROMBIN TIME 10.6 SECS (9.5-12.5)
[2020-03-05] MEDS: INSULIN NPH 100 UNITS/ML 10 ML VIAL SUBCUT SCH ×2 (07:23→17:57)
[2020-03-05] MEDS: FERROUS SULFATE 300 MG/5 ML UDC GT SCH ×2 (08:03→20:29)
[2020-03-05] MEDS: amLODIPine BESYLATE 10 MG TABLET NG SCH (08:04)
[2020-03-05] MEDS: LACTOBACILLUS RHAMNOSUS GG 1 CAP CAPSULE PO SCH ×2 (08:04→20:29)
[2020-03-05] MEDS: PANTOPRAZOLE SODIUM 40 MG/VIAL (PROTONIX) IVP SCH ×2 (08:05→20:28)
[2020-03-05] MEDS: FOLIC ACID 1 MG TABLET GT SCH (08:06)
[2020-03-05] MEDS: QUEtiapine FUMARATE 25 MG TABLET PO SCH ×3 (08:06→20:29)
[2020-03-05] MEDS: AMIODARONE HCL 200 MG TABLET NG SCH ×2 (08:06→20:30)
[2020-03-05] MEDS: LORazepam 2 MG/ML VIAL IVP PRN ×3 (08:07→19:05)
[2020-03-05] MEDS: HEPARIN SODIUM,PORCINE 5000 UNITS/ML VIAL SUBCUT SCH ×2 (08:08→20:31)
[2020-03-05] MEDS: BRIMONIDINE TARTRATE 0.2% 5 mL EYE DROPS EACH EYE SCH ×2 (08:44→21:52)
[2020-03-05] MEDS: DORZOLAMIDE 2% OPHTHALMIC SOLN 5ML OP SCH ×2 (08:44→21:52)
[2020-03-05] MEDS: BALSAM PERU/CASTOR OIL 60 GM OINT...G. TP SCH (08:44)
[2020-03-05] MEDS: GABAPENTIN 300 MG CAPSULE GT SCH ×2 (11:00→20:28)
[2020-03-05] MEDS: CEFEPIME 0.5 GM in D5W 50 ML IV SCH (11:01)
[2020-03-05] MEDS: PROPOFOL DRIP 100 ML IV PRN ×4 (12:12→22:43)
[2020-03-05] MEDS ORDERED: guaiFENesin ER 600 MG TAB GT ONE (14:30)
[2020-03-05] MEDS ORDERED: fentaNYL CITRATE/PF 100 MCG/2 ML AMP IVP ONE (14:30)
[2020-03-05] MEDS: PIPERACILLIN/TAZO 2.25G/DEX-IS 50 ML IV SCH ×2 (14:34→21:58)
[2020-03-05] MEDS: ACETYLCYSTEINE 20% 4 ML VIAL (RT) INH SCH ×2 (15:00→21:00)
[2020-03-05] MEDS ORDERED: fentaNYL CITRATE/PF 100 MCG/2 ML AMP ONE (15:24)
[2020-03-05] MEDS ORDERED: LIDOCAINE 2% JELLY UROJECT 10 ML MM ONE (15:24)
[2020-03-05] MEDS ORDERED: LIDOCAINE 1%, 20 ML MDV 0 ML ONE (15:25)
[2020-03-05] MEDS ORDERED: MIDAZOLAM HCL 5 MG/5 ML VIAL ONE (15:25)
[2020-03-05] MEDS ORDERED: INSULIN NPH 100 UNITS/ML 10 ML VIAL SUBCUT ONE (20:15)
[2020-03-05] MEDS: guaiFENesin ER 600 MG TAB GT SCH (20:29)
[2020-03-05] MEDS: ATORVASTATIN 20 MG TABLET GT SCH (20:30)
[2020-03-06] VITALS (36 sets, daily range): BP systolic 92–122
[2020-03-06] MEDS: PROPOFOL DRIP 100 ML IV PRN ×6 (04:24→20:46)
[2020-03-06] MEDS: ALBUTEROL MDI INHALATION 8 GM INH INH SCH ×4 (04:24→21:45)
[2020-03-06 05:21] LABS: HEMOGLOBIN 7.7 g/dL (14.0-18.0)
[2020-03-06 05:26] LABS: BASOPHILS # (AUTO) 0.2 K/uL (0.0-0.2); BASOPHILS % (AUTO) 1.5 % (0.0-2.0); EOSINOPHILS # (AUTO) 0.7 K/uL (0.0-0.4); EOSINOPHILS % (AUTO) 4.9 % (0.0-4.0); HEMATOCRIT 23.5 % (36-54); LYMPHOCYTES % (AUTO) 14.3 % (20.5-51.5); MEAN CORPUSCULAR HEMOGLOBIN 30 pg (27-31); MEAN CORPUSCULAR HGB CONC 33 % (32-36); MEAN CORPUSCULAR VOLUME 90 fL (79.0-98.0); MONOCYTES # (AUTO) 0.9 K/uL (0.0-1.0); MONOCYTES % (AUTO) 6.4 % (1.7-9.3); NEUTROPHILS # (AUTO) 10.2 K/uL (1.8-7.7); NEUTROPHILS % (AUTO) 72.9 % (40.0-70.0); PLATELET COUNT (AUTO) 293 K/uL (130-430); RED BLOOD CELL COUNT(AUTO) 2.62 MIL/uL (4.2-6.2); RED CELL DISTRIBUTION WIDTH 16.3 % (9.0-15.0)
[2020-03-06 05:40] LABS: C-REACTIVE PROTEIN QUANT 11.3 mg/dL (0-0.5); CALCIUM 7.9 mg/dL (8.4-11.0); CREATININE 7.02 mg/dL (0.55-1.30); POTASSIUM 4.6 mmol/L (3.5-5.1); TOTAL BILIRUBIN 0.4 mg/dL (0.0-1.0)
[2020-03-06] MEDS: PIPERACILLIN/TAZO 2.25G/DEX-IS 50 ML IV SCH ×3 (05:47→20:30)
[2020-03-06] MEDS: hydrALAZINE HCL 20 MG/ML VIAL IVP SCH ×4 (06:00→16:45)
[2020-03-06] MEDS: INSULIN LISPRO SLIDING SCALE 100 UNITS/ML VIAL (humaLOG) SUBCUT PRN ×3 (06:25→18:21)
[2020-03-06] MEDS: INSULIN NPH 100 UNITS/ML 10 ML VIAL SUBCUT SCH ×2 (06:28→16:55)
[2020-03-06 07:04] LABS: ERYTHROCYTE SEDIMENTATION RATE 124 MM/HR (0-15)
[2020-03-06] MEDS: ACETYLCYSTEINE 20% 4 ML VIAL (RT) INH SCH ×3 (07:49→21:45)
[2020-03-06] MEDS: amLODIPine BESYLATE 10 MG TABLET NG SCH (07:59)
[2020-03-06] MEDS: GABAPENTIN 300 MG CAPSULE GT SCH ×2 (08:24→20:28)
[2020-03-06] MEDS: BRIMONIDINE TARTRATE 0.2% 5 mL EYE DROPS EACH EYE SCH ×2 (08:24→20:32)
[2020-03-06] MEDS: LACTOBACILLUS RHAMNOSUS GG 1 CAP CAPSULE PO SCH ×2 (08:24→20:28)
[2020-03-06] MEDS: FERROUS SULFATE 300 MG/5 ML UDC GT SCH ×2 (08:24→20:29)
[2020-03-06] MEDS: DORZOLAMIDE 2% OPHTHALMIC SOLN 5ML OP SCH ×2 (08:24→20:32)
[2020-03-06] MEDS: AMIODARONE HCL 200 MG TABLET NG SCH ×2 (08:25→20:30)
[2020-03-06] MEDS: guaiFENesin ER 600 MG TAB GT SCH ×2 (08:25→20:32)
[2020-03-06] MEDS: FOLIC ACID 1 MG TABLET GT SCH (08:25)
[2020-03-06] MEDS: QUEtiapine FUMARATE 25 MG TABLET PO SCH (08:25)
[2020-03-06] MEDS: PANTOPRAZOLE SODIUM 40 MG/VIAL (PROTONIX) IVP SCH ×2 (08:26→20:28)
[2020-03-06] MEDS: HEPARIN SODIUM,PORCINE 5000 UNITS/ML VIAL SUBCUT SCH ×2 (08:28→20:45)
[2020-03-06] MEDS: BALSAM PERU/CASTOR OIL 60 GM OINT...G. TP SCH (08:31)
[2020-03-06] MEDS ORDERED: ALBUMIN HUMAN 25% 200 ML IV ONE (08:45)
[2020-03-06 09:02] LABS: PROTHROMBIN TIME 10.4 SECS (9.5-12.5)
[2020-03-06] MEDS: LORazepam 2 MG/ML VIAL IVP PRN (11:11)
[2020-03-06] MEDS: QUEtiapine FUMARATE 100 MG TABLET PO SCH ×2 (14:23→20:29)
[2020-03-06] MEDS: ATORVASTATIN 20 MG TABLET GT SCH (20:28)
[2020-03-07] VITALS (33 sets, daily range): BP systolic 92–124
[2020-03-07] MEDS: ALBUTEROL MDI INHALATION 8 GM INH INH SCH ×2 (03:28→22:23)
[2020-03-07] MEDS: LORazepam 2 MG/ML VIAL IVP PRN ×2 (05:00→07:34)
[2020-03-07] MEDS: PIPERACILLIN/TAZO 2.25G/DEX-IS 50 ML IV SCH ×3 (06:04→21:40)
[2020-03-07] MEDS: hydrALAZINE HCL 20 MG/ML VIAL IVP SCH ×5 (06:05→23:57)
[2020-03-07] MEDS: PROPOFOL DRIP 100 ML IV PRN ×4 (06:08→20:31)
[2020-03-07 06:11] LABS: BASOPHILS # (AUTO) 0.1 K/uL (0.0-0.2); BASOPHILS % (AUTO) 0.8 % (0.0-2.0); EOSINOPHILS % (AUTO) 6.9 % (0.0-4.0); HEMATOCRIT 23.9 % (36-54); HEMOGLOBIN 7.9 g/dL (14.0-18.0); LYMPHOCYTES # (AUTO) 1.9 K/uL (1.0-5.5); LYMPHOCYTES % (AUTO) 13.6 % (20.5-51.5); MEAN CORPUSCULAR HEMOGLOBIN 30 pg (27-31); MEAN CORPUSCULAR HGB CONC 33 % (32-36); MEAN CORPUSCULAR VOLUME 89 fL (79.0-98.0); MONOCYTES # (AUTO) 0.8 K/uL (0.0-1.0); MONOCYTES % (AUTO) 5.5 % (1.7-9.3); NEUTROPHILS # (AUTO) 10.1 K/uL (1.8-7.7); NEUTROPHILS % (AUTO) 73.2 % (40.0-70.0); PLATELET COUNT (AUTO) 342 K/uL (130-430); RED BLOOD CELL COUNT(AUTO) 2.67 MIL/uL (4.2-6.2); RED CELL DISTRIBUTION WIDTH 16.7 % (9.0-15.0); WHITE BLOOD COUNT (AUTO) 13.8 K/uL (4.8-10.8)
[2020-03-07 06:28] LABS: ALBUMIN 2.3 g/dL (3.4-4.8); CALCIUM 8.1 mg/dL (8.4-11.0); CREATININE 5.86 mg/dL (0.55-1.30); POTASSIUM 4.6 mmol/L (3.5-5.1); TOTAL BILIRUBIN 0.5 mg/dL (0.0-1.0)
[2020-03-07] MEDS: INSULIN NPH 100 UNITS/ML 10 ML VIAL SUBCUT SCH ×2 (06:35→17:07)
[2020-03-07] MEDS: HEPARIN SODIUM,PORCINE 5000 UNITS/ML VIAL SUBCUT SCH ×2 (07:35→22:15)
[2020-03-07] MEDS: LACTOBACILLUS RHAMNOSUS GG 1 CAP CAPSULE PO SCH ×2 (07:35→20:43)
[2020-03-07] MEDS: FOLIC ACID 1 MG TABLET GT SCH (07:36)
[2020-03-07] MEDS: QUEtiapine FUMARATE 100 MG TABLET PO SCH ×3 (07:37→20:43)
[2020-03-07] MEDS: FERROUS SULFATE 300 MG/5 ML UDC GT SCH ×2 (07:37→20:46)
[2020-03-07] MEDS: PANTOPRAZOLE SODIUM 40 MG/VIAL (PROTONIX) IVP SCH ×2 (07:41→20:46)
[2020-03-07] MEDS: ACETYLCYSTEINE 20% 4 ML VIAL (RT) INH SCH ×2 (08:40→22:22)
[2020-03-07] MEDS: BRIMONIDINE TARTRATE 0.2% 5 mL EYE DROPS EACH EYE SCH ×2 (08:57→21:33)
[2020-03-07] MEDS: amLODIPine BESYLATE 10 MG TABLET NG SCH (08:58)
[2020-03-07] MEDS: DORZOLAMIDE 2% OPHTHALMIC SOLN 5ML OP SCH ×2 (08:59→21:33)
[2020-03-07] MEDS: BALSAM PERU/CASTOR OIL 60 GM OINT...G. TP SCH (08:59)
[2020-03-07] MEDS: guaiFENesin ER 600 MG TAB GT SCH ×2 (09:00→20:46)
[2020-03-07] MEDS: AMIODARONE HCL 200 MG TABLET NG SCH ×2 (09:00→20:44)
[2020-03-07] MEDS: GABAPENTIN 300 MG CAPSULE GT SCH ×2 (10:51→20:43)
[2020-03-07] MEDS: INSULIN LISPRO SLIDING SCALE 100 UNITS/ML VIAL (humaLOG) SUBCUT PRN (11:21)
[2020-03-07] MEDS ORDERED: KETAMINE 30 MG/3 ML SYRINGE IV ONE (14:01)
[2020-03-07] MEDS ORDERED: SUCCINYLCHOLINE CHLORIDE 20 MG/ML(QUELICIN) IVP ONE (14:01)
[2020-03-07] MEDS ORDERED: ROCURONIUM BROMIDE 10 MG/ML (ZEMURON) IV ONE (14:01)
[2020-03-07] MEDS ORDERED: MIDAZOLAM HCL 5 MG/5 ML VIAL IVP ONE (14:01)
[2020-03-07] MEDS ORDERED: PROPOFOL 200MG/ 20ML VIAL (DIPRIVAN) IV ONE (14:01)
[2020-03-07] MEDS ORDERED: NS 1000 ML IV.SOLN IV ONE (14:01)
[2020-03-07] MEDS ORDERED: HEPARIN SODIUM,PORCINE 5000 UNITS/ML VIAL SUBCUT ONE (15:30)
[2020-03-07] MEDS: EPOETIN ALFA 10,000 UNITS/ML VIAL SUBCUT SCH (17:04)
[2020-03-07] MEDS: ATORVASTATIN 20 MG TABLET GT SCH (20:45)
[2020-03-07] MEDS: NYSTATIN 15 GM TOPICAL POWDER TP SCH (20:48)
[2020-03-08] VITALS (35 sets, daily range): BP systolic 93–136
[2020-03-08] MEDS: INSULIN LISPRO SLIDING SCALE 100 UNITS/ML VIAL (humaLOG) SUBCUT PRN ×3 (00:27→23:12)
[2020-03-08] MEDS: ALBUTEROL MDI INHALATION 8 GM INH INH SCH ×4 (03:15→21:03)
[2020-03-08] MEDS: PROPOFOL DRIP 100 ML IV PRN ×3 (04:46→17:09)
[2020-03-08] MEDS: PIPERACILLIN/TAZO 2.25G/DEX-IS 50 ML IV SCH ×3 (05:19→22:58)
[2020-03-08] MEDS: hydrALAZINE HCL 20 MG/ML VIAL IVP SCH ×4 (05:21→22:59)
[2020-03-08] MEDS: HEPARIN SODIUM,PORCINE 5000 UNITS/ML VIAL SUBCUT SCH ×3 (05:22→23:02)
[2020-03-08] MEDS: INSULIN NPH 100 UNITS/ML 10 ML VIAL SUBCUT SCH ×2 (06:31→17:05)
[2020-03-08] MEDS: QUEtiapine FUMARATE 100 MG TABLET PO SCH ×3 (07:42→22:56)
[2020-03-08] MEDS: PANTOPRAZOLE SODIUM 40 MG/VIAL (PROTONIX) IVP SCH ×2 (07:42→22:55)
[2020-03-08] MEDS: FERROUS SULFATE 300 MG/5 ML UDC GT SCH ×2 (07:42→22:53)
[2020-03-08] MEDS: AMIODARONE HCL 200 MG TABLET NG SCH ×2 (07:43→22:56)
[2020-03-08] MEDS: guaiFENesin ER 600 MG TAB GT SCH ×2 (07:44→22:54)
[2020-03-08] MEDS: FOLIC ACID 1 MG TABLET GT SCH (07:44)
[2020-03-08] MEDS: GABAPENTIN 300 MG CAPSULE GT SCH ×2 (07:45→22:54)
[2020-03-08] MEDS: LACTOBACILLUS RHAMNOSUS GG 1 CAP CAPSULE PO SCH ×2 (07:45→22:56)
[2020-03-08] MEDS: BALSAM PERU/CASTOR OIL 60 GM OINT...G. TP SCH (07:46)
[2020-03-08] MEDS: NYSTATIN 15 GM TOPICAL POWDER TP SCH ×2 (07:47→22:57)
[2020-03-08] MEDS: amLODIPine BESYLATE 10 MG TABLET NG SCH (07:47)
[2020-03-08] MEDS: ACETYLCYSTEINE 20% 4 ML VIAL (RT) INH SCH ×3 (08:55→21:00)
[2020-03-08] MEDS: BRIMONIDINE TARTRATE 0.2% 5 mL EYE DROPS EACH EYE SCH ×2 (08:59→22:53)
[2020-03-08] MEDS: DORZOLAMIDE 2% OPHTHALMIC SOLN 5ML OP SCH ×2 (08:59→22:56)
[2020-03-08] MEDS ORDERED: KETAMINE HCL 500 MG/10 ML VIAL ONE (13:32)
[2020-03-08 14:33] LABS: BASOPHILS # (AUTO) 0.1 K/uL (0.0-0.2); EOSINOPHILS % (AUTO) 7.2 % (0.0-4.0); HEMATOCRIT 24.1 % (36-54); HEMOGLOBIN 7.8 g/dL (14.0-18.0); LYMPHOCYTES # (AUTO) 1.4 K/uL (1.0-5.5); LYMPHOCYTES % (AUTO) 9.9 % (20.5-51.5); MEAN CORPUSCULAR HEMOGLOBIN 29 pg (27-31); MEAN CORPUSCULAR HGB CONC 32 % (32-36); MEAN CORPUSCULAR VOLUME 89 fL (79.0-98.0); MONOCYTES # (AUTO) 0.7 K/uL (0.0-1.0); MONOCYTES % (AUTO) 5.2 % (1.7-9.3); NEUTROPHILS % (AUTO) 76.7 % (40.0-70.0); PLATELET COUNT (AUTO) 399 K/uL (130-430); RED CELL DISTRIBUTION WIDTH 16.8 % (9.0-15.0); WHITE BLOOD COUNT (AUTO) 14.3 K/uL (4.8-10.8)
[2020-03-08 14:54] LABS: ALBUMIN 2.1 g/dL (3.4-4.8); CALCIUM 8.1 mg/dL (8.4-11.0); CREATININE 7.09 mg/dL (0.55-1.30); TOTAL BILIRUBIN 0.6 mg/dL (0.0-1.0)
[2020-03-08 15:03] LABS: POTASSIUM 5.9 mmol/L (3.5-5.1)
[2020-03-08 16:15] LABS: CALCIUM 8.3 mg/dL (8.4-11.0); CREATININE 7.11 mg/dL (0.55-1.30); TOTAL BILIRUBIN 0.6 mg/dL (0.0-1.0)
[2020-03-08 16:32] LABS: POTASSIUM 5.9 mmol/L (3.5-5.1)
[2020-03-08 16:34] LABS: ALBUMIN 2.2 g/dL (3.4-4.8)
[2020-03-08] MEDS: LORazepam 2 MG/ML VIAL IVP PRN (17:33)
[2020-03-08] MEDS: NOREPINEPHRINE BITARTRATE 4 MG in NS 246 ML IV PRN ×2 (19:24→21:37)
[2020-03-08] MEDS ORDERED: HEPARIN SODIUM,PORCINE 5000 UNITS/ML VIAL MC ONE ×2 (19:30)
[2020-03-08] MEDS ORDERED: NOREPINEPHRINE 4 MG/4 ML VIAL IV ONE (19:30)
[2020-03-08] MEDS: ATORVASTATIN 20 MG TABLET GT SCH (22:53)
[2020-03-09] VITALS (35 sets, daily range): BP systolic 86–151
[2020-03-09] MEDS: PROPOFOL DRIP 100 ML IV PRN ×5 (03:40→21:53)
[2020-03-09 05:49] LABS: BASOPHILS # (AUTO) 0.1 K/uL (0.0-0.2); BASOPHILS % (AUTO) 0.4 % (0.0-2.0); EOSINOPHILS # (AUTO) 0.3 K/uL (0.0-0.4); EOSINOPHILS % (AUTO) 1.7 % (0.0-4.0); HEMATOCRIT 25.8 % (36-54); HEMOGLOBIN 8.2 g/dL (14.0-18.0); LYMPHOCYTES # (AUTO) 0.6 K/uL (1.0-5.5); LYMPHOCYTES % (AUTO) 3.2 % (20.5-51.5); MEAN CORPUSCULAR HEMOGLOBIN 29 pg (27-31); MEAN CORPUSCULAR HGB CONC 32 % (32-36); MEAN CORPUSCULAR VOLUME 90 fL (79.0-98.0); MONOCYTES # (AUTO) 0.7 K/uL (0.0-1.0); MONOCYTES % (AUTO) 4.1 % (1.7-9.3); NEUTROPHILS # (AUTO) 15.8 K/uL (1.8-7.7); NEUTROPHILS % (AUTO) 90.6 % (40.0-70.0); PLATELET COUNT (AUTO) 430 K/uL (130-430); RED BLOOD CELL COUNT(AUTO) 2.88 MIL/uL (4.2-6.2); RED CELL DISTRIBUTION WIDTH 17.1 % (9.0-15.0); WHITE BLOOD COUNT (AUTO) 17.4 K/uL (4.8-10.8)
[2020-03-09] MEDS: hydrALAZINE HCL 20 MG/ML VIAL IVP SCH ×4 (06:00→23:58)
[2020-03-09 06:12] LABS: ALBUMIN 2.2 g/dL (3.4-4.8); CALCIUM 8.3 mg/dL (8.4-11.0); CREATININE 5.64 mg/dL (0.55-1.30); POTASSIUM 5.6 mmol/L (3.5-5.1); TOTAL BILIRUBIN 0.5 mg/dL (0.0-1.0)
[2020-03-09] MEDS: PIPERACILLIN/TAZO 2.25G/DEX-IS 50 ML IV SCH ×3 (06:41→20:26)
[2020-03-09] MEDS: HEPARIN SODIUM,PORCINE 5000 UNITS/ML VIAL SUBCUT SCH ×3 (06:42→22:12)
[2020-03-09] MEDS: INSULIN NPH 100 UNITS/ML 10 ML VIAL SUBCUT SCH ×2 (06:44→18:07)
[2020-03-09] MEDS: INSULIN LISPRO SLIDING SCALE 100 UNITS/ML VIAL (humaLOG) SUBCUT PRN ×3 (06:48→18:09)
[2020-03-09] MEDS: ALBUTEROL MDI INHALATION 8 GM INH INH SCH ×3 (07:44→23:03)
[2020-03-09] MEDS: ACETYLCYSTEINE 20% 4 ML VIAL (RT) INH SCH ×3 (07:44→23:02)
[2020-03-09] MEDS: FERROUS SULFATE 300 MG/5 ML UDC GT SCH ×2 (08:19→20:26)
[2020-03-09] MEDS: QUEtiapine FUMARATE 100 MG TABLET PO SCH ×3 (08:19→20:27)
[2020-03-09] MEDS: LACTOBACILLUS RHAMNOSUS GG 1 CAP CAPSULE PO SCH ×2 (08:19→20:27)
[2020-03-09] MEDS: FOLIC ACID 1 MG TABLET GT SCH (08:20)
[2020-03-09] MEDS: PANTOPRAZOLE SODIUM 40 MG/VIAL (PROTONIX) IVP SCH ×2 (08:20→20:26)
[2020-03-09] MEDS: guaiFENesin ER 600 MG TAB GT SCH ×2 (08:21→20:28)
[2020-03-09] MEDS: AMIODARONE HCL 200 MG TABLET NG SCH ×2 (08:22→20:28)
[2020-03-09] MEDS: amLODIPine BESYLATE 10 MG TABLET NG SCH (08:22)
[2020-03-09] MEDS: GABAPENTIN 300 MG CAPSULE GT SCH ×2 (08:24→20:26)
[2020-03-09] MEDS: BALSAM PERU/CASTOR OIL 60 GM OINT...G. TP SCH (09:00)
[2020-03-09] MEDS: NYSTATIN 15 GM TOPICAL POWDER TP SCH ×2 (09:00→21:12)
[2020-03-09] MEDS: DORZOLAMIDE 2% OPHTHALMIC SOLN 5ML OP SCH ×2 (09:21→21:12)
[2020-03-09] MEDS: BRIMONIDINE TARTRATE 0.2% 5 mL EYE DROPS EACH EYE SCH ×2 (09:21→21:12)
[2020-03-09] MEDS ORDERED: SODIUM POLYSTYRENE SULFONATE 15 GM/60 ML UDBTL PO ONE (16:30)
[2020-03-09] MEDS: EPOETIN ALFA 10,000 UNITS/ML VIAL SUBCUT SCH (17:55)
[2020-03-09] MEDS: ATORVASTATIN 20 MG TABLET GT SCH (20:27)
[2020-03-10] VITALS (36 sets, daily range): BP systolic 91–144
[2020-03-10] MEDS: INSULIN LISPRO SLIDING SCALE 100 UNITS/ML VIAL (humaLOG) SUBCUT PRN ×5 (00:12→23:29)
[2020-03-10] MEDS: NOREPINEPHRINE BITARTRATE 4 MG in D5W 250 ML IV PRN (01:54)
[2020-03-10] MEDS: PROPOFOL DRIP 100 ML IV PRN ×5 (01:56→22:21)
[2020-03-10 05:43] LABS: BASOPHILS # (AUTO) 0.1 K/uL (0.0-0.2); BASOPHILS % (AUTO) 0.5 % (0.0-2.0); EOSINOPHILS # (AUTO) 0.3 K/uL (0.0-0.4); EOSINOPHILS % (AUTO) 1.9 % (0.0-4.0); HEMATOCRIT 24.9 % (36-54); HEMOGLOBIN 7.9 g/dL (14.0-18.0); LYMPHOCYTES # (AUTO) 1.4 K/uL (1.0-5.5); LYMPHOCYTES % (AUTO) 8.4 % (20.5-51.5); MEAN CORPUSCULAR HEMOGLOBIN 28 pg (27-31); MEAN CORPUSCULAR HGB CONC 32 % (32-36); MEAN CORPUSCULAR VOLUME 90 fL (79.0-98.0); MONOCYTES # (AUTO) 0.7 K/uL (0.0-1.0); MONOCYTES % (AUTO) 4.2 % (1.7-9.3); NEUTROPHILS # (AUTO) 14.2 K/uL (1.8-7.7); PLATELET COUNT (AUTO) 451 K/uL (130-430); RED BLOOD CELL COUNT(AUTO) 2.77 MIL/uL (4.2-6.2); RED CELL DISTRIBUTION WIDTH 16.7 % (9.0-15.0); WHITE BLOOD COUNT (AUTO) 16.7 K/uL (4.8-10.8)
[2020-03-10 05:54] LABS: CALCIUM 8.5 mg/dL (8.4-11.0); CREATININE 7.21 mg/dL (0.55-1.30); POTASSIUM 5.4 mmol/L (3.5-5.1)
[2020-03-10] MEDS: hydrALAZINE HCL 20 MG/ML VIAL IVP SCH ×4 (06:00→23:31)
[2020-03-10] MEDS: PIPERACILLIN/TAZO 2.25G/DEX-IS 50 ML IV SCH ×3 (06:14→21:49)
[2020-03-10] MEDS: HEPARIN SODIUM,PORCINE 5000 UNITS/ML VIAL SUBCUT SCH ×3 (06:15→22:19)
[2020-03-10] MEDS: INSULIN NPH 100 UNITS/ML 10 ML VIAL SUBCUT SCH ×2 (06:40→16:19)
[2020-03-10] MEDS: ACETYLCYSTEINE 20% 4 ML VIAL (RT) INH SCH ×3 (07:23→21:35)
[2020-03-10] MEDS: ALBUTEROL MDI INHALATION 8 GM INH INH SCH ×3 (07:24→21:35)
[2020-03-10] MEDS: FERROUS SULFATE 300 MG/5 ML UDC GT SCH ×2 (08:34→21:47)
[2020-03-10] MEDS: GABAPENTIN 300 MG CAPSULE GT SCH ×2 (08:34→21:47)
[2020-03-10] MEDS: guaiFENesin ER 600 MG TAB GT SCH ×2 (08:34→22:18)
[2020-03-10] MEDS: QUEtiapine FUMARATE 100 MG TABLET PO SCH ×3 (08:34→21:48)
[2020-03-10] MEDS: FOLIC ACID 1 MG TABLET GT SCH (08:34)
[2020-03-10] MEDS: LACTOBACILLUS RHAMNOSUS GG 1 CAP CAPSULE PO SCH ×2 (08:34→21:48)
[2020-03-10] MEDS: PANTOPRAZOLE SODIUM 40 MG/VIAL (PROTONIX) IVP SCH ×2 (08:35→21:47)
[2020-03-10] MEDS: amLODIPine BESYLATE 10 MG TABLET NG SCH (08:35)
[2020-03-10] MEDS: AMIODARONE HCL 200 MG TABLET NG SCH ×2 (08:35→21:48)
[2020-03-10] MEDS: DORZOLAMIDE 2% OPHTHALMIC SOLN 5ML OP SCH ×2 (08:36→22:18)
[2020-03-10] MEDS: BALSAM PERU/CASTOR OIL 60 GM OINT...G. TP SCH (08:36)
[2020-03-10] MEDS: NYSTATIN 15 GM TOPICAL POWDER TP SCH ×2 (08:36→22:18)
[2020-03-10] MEDS: BRIMONIDINE TARTRATE 0.2% 5 mL EYE DROPS EACH EYE SCH ×2 (08:36→22:18)
[2020-03-10] MEDS ORDERED: HEPARIN SODIUM,PORCINE 5000 UNITS/ML VIAL ONE (21:40)
[2020-03-10] MEDS: ATORVASTATIN 20 MG TABLET GT SCH (21:47)
[2020-03-11] VITALS (36 sets, daily range): BP systolic 86–142
[2020-03-11] MEDS: ALBUTEROL MDI INHALATION 8 GM INH INH SCH ×4 (03:25→21:13)
[2020-03-11] MEDS: NOREPINEPHRINE BITARTRATE 4 MG in D5W 250 ML IV PRN (03:32)
[2020-03-11] MEDS: PROPOFOL DRIP 100 ML IV PRN ×4 (03:35→17:53)
[2020-03-11 05:49] LABS: BASOPHILS # (AUTO) 0.3 K/uL (0.0-0.2); BASOPHILS % (AUTO) 1.6 % (0.0-2.0); EOSINOPHILS # (AUTO) 0.3 K/uL (0.0-0.4); EOSINOPHILS % (AUTO) 2.1 % (0.0-4.0); HEMATOCRIT 23.5 % (36-54); HEMOGLOBIN 7.5 g/dL (14.0-18.0); LYMPHOCYTES # (AUTO) 1.3 K/uL (1.0-5.5); LYMPHOCYTES % (AUTO) 7.6 % (20.5-51.5); MEAN CORPUSCULAR HEMOGLOBIN 28 pg (27-31); MEAN CORPUSCULAR HGB CONC 32 % (32-36); MEAN CORPUSCULAR VOLUME 89 fL (79.0-98.0); MONOCYTES # (AUTO) 0.9 K/uL (0.0-1.0); MONOCYTES % (AUTO) 5.6 % (1.7-9.3); NEUTROPHILS # (AUTO) 13.8 K/uL (1.8-7.7); NEUTROPHILS % (AUTO) 83.1 % (40.0-70.0); PLATELET COUNT (AUTO) 522 K/uL (130-430); RED BLOOD CELL COUNT(AUTO) 2.63 MIL/uL (4.2-6.2); RED CELL DISTRIBUTION WIDTH 16.9 % (9.0-15.0); WHITE BLOOD COUNT (AUTO) 16.6 K/uL (4.8-10.8)
[2020-03-11] MEDS: hydrALAZINE HCL 20 MG/ML VIAL IVP SCH ×3 (06:00→17:21)
[2020-03-11 06:04] LABS: CALCIUM 8.2 mg/dL (8.4-11.0); CREATININE 5.8 mg/dL (0.55-1.30); POTASSIUM 4.4 mmol/L (3.5-5.1)
[2020-03-11] MEDS: PIPERACILLIN/TAZO 2.25G/DEX-IS 50 ML IV SCH ×3 (06:32→20:48)
[2020-03-11] MEDS: HEPARIN SODIUM,PORCINE 5000 UNITS/ML VIAL SUBCUT SCH ×3 (06:34→22:07)
[2020-03-11] MEDS: INSULIN NPH 100 UNITS/ML 10 ML VIAL SUBCUT SCH ×2 (07:08→17:54)
[2020-03-11] MEDS: INSULIN LISPRO SLIDING SCALE 100 UNITS/ML VIAL (humaLOG) SUBCUT PRN (07:08)
[2020-03-11] MEDS: FOLIC ACID 1 MG TABLET GT SCH (08:43)
[2020-03-11] MEDS: amLODIPine BESYLATE 10 MG TABLET NG SCH (08:44)
[2020-03-11] MEDS: AMIODARONE HCL 200 MG TABLET NG SCH ×2 (08:44→20:35)
[2020-03-11] MEDS: GABAPENTIN 300 MG CAPSULE GT SCH ×2 (08:44→20:34)
[2020-03-11] MEDS: LACTOBACILLUS RHAMNOSUS GG 1 CAP CAPSULE PO SCH ×2 (08:45→20:36)
[2020-03-11] MEDS: PANTOPRAZOLE SODIUM 40 MG/VIAL (PROTONIX) IVP SCH ×2 (08:47→20:35)
[2020-03-11] MEDS: guaiFENesin ER 600 MG TAB GT SCH ×2 (08:47→20:34)
[2020-03-11] MEDS: QUEtiapine FUMARATE 100 MG TABLET PO SCH ×3 (08:47→20:36)
[2020-03-11] MEDS: FERROUS SULFATE 300 MG/5 ML UDC GT SCH ×2 (08:50→20:34)
[2020-03-11] MEDS: ACETYLCYSTEINE 20% 4 ML VIAL (RT) INH SCH ×3 (09:04→21:12)
[2020-03-11] MEDS: BRIMONIDINE TARTRATE 0.2% 5 mL EYE DROPS EACH EYE SCH ×2 (09:19→20:34)
[2020-03-11] MEDS: NYSTATIN 15 GM TOPICAL POWDER TP SCH ×2 (09:19→20:37)
[2020-03-11] MEDS: BALSAM PERU/CASTOR OIL 60 GM OINT...G. TP SCH (09:19)
[2020-03-11] MEDS: DORZOLAMIDE 2% OPHTHALMIC SOLN 5ML OP SCH ×2 (09:19→20:36)
[2020-03-11] MEDS: EPOETIN ALFA 10,000 UNITS/ML VIAL SUBCUT SCH (17:07)
[2020-03-11] MEDS: ATORVASTATIN 20 MG TABLET GT SCH (20:34)
[2020-03-12] VITALS (33 sets, daily range): BP systolic 74–130
[2020-03-12] MEDS: hydrALAZINE HCL 20 MG/ML VIAL IVP SCH ×5 (00:44→23:34)
[2020-03-12] MEDS: PROPOFOL DRIP 100 ML IV PRN ×3 (01:31→11:12)
[2020-03-12] MEDS: HEPARIN SODIUM,PORCINE 5000 UNITS/ML VIAL SUBCUT SCH ×3 (05:17→21:06)
[2020-03-12] MEDS: INSULIN NPH 100 UNITS/ML 10 ML VIAL SUBCUT SCH ×2 (05:53→18:13)
[2020-03-12] MEDS: INSULIN LISPRO SLIDING SCALE 100 UNITS/ML VIAL (humaLOG) SUBCUT PRN ×4 (05:55→23:39)
[2020-03-12 07:06] LABS: BASOPHILS # (AUTO) 0.2 K/uL (0.0-0.2); BASOPHILS % (AUTO) 0.9 % (0.0-2.0); EOSINOPHILS # (AUTO) 0.9 K/uL (0.0-0.4); EOSINOPHILS % (AUTO) 5.2 % (0.0-4.0); HEMOGLOBIN 7.2 g/dL (14.0-18.0); LYMPHOCYTES # (AUTO) 1.8 K/uL (1.0-5.5); LYMPHOCYTES % (AUTO) 10.2 % (20.5-51.5); MEAN CORPUSCULAR HEMOGLOBIN 30 pg (27-31); MEAN CORPUSCULAR HGB CONC 33 % (32-36); MEAN CORPUSCULAR VOLUME 90 fL (79.0-98.0); MONOCYTES # (AUTO) 1.2 K/uL (0.0-1.0); MONOCYTES % (AUTO) 6.8 % (1.7-9.3); NEUTROPHILS # (AUTO) 13.8 K/uL (1.8-7.7); NEUTROPHILS % (AUTO) 76.9 % (40.0-70.0); PLATELET COUNT (AUTO) 538 K/uL (130-430); RED BLOOD CELL COUNT(AUTO) 2.44 MIL/uL (4.2-6.2); RED CELL DISTRIBUTION WIDTH 17.1 % (9.0-15.0); WHITE BLOOD COUNT (AUTO) 17.9 K/uL (4.8-10.8)
[2020-03-12 07:11] LABS: HEMATOCRIT 21.9 % (36-54)
[2020-03-12 07:37] LABS: CALCIUM 7.8 mg/dL (8.4-11.0); CREATININE 6.5 mg/dL (0.55-1.30)
[2020-03-12 07:40] LABS: POTASSIUM 5.9 mmol/L (3.5-5.1)
[2020-03-12] MEDS ORDERED: DOPamine PREMIX 250 ML IV PRN (08:45)
[2020-03-12] MEDS ORDERED: DOPamine PREMIX 250 ML IV ONE (08:53)
[2020-03-12] MEDS: BALSAM PERU/CASTOR OIL 60 GM OINT...G. TP SCH (09:00)
[2020-03-12] MEDS: NYSTATIN 15 GM TOPICAL POWDER TP SCH ×2 (09:00→20:42)
[2020-03-12] MEDS: amLODIPine BESYLATE 10 MG TABLET NG SCH (09:00)
[2020-03-12] MEDS: FERROUS SULFATE 300 MG/5 ML UDC GT SCH ×2 (09:11→20:38)
[2020-03-12] MEDS: PANTOPRAZOLE SODIUM 40 MG/VIAL (PROTONIX) IVP SCH ×2 (09:11→20:39)
[2020-03-12] MEDS: FOLIC ACID 1 MG TABLET GT SCH (09:12)
[2020-03-12] MEDS: LACTOBACILLUS RHAMNOSUS GG 1 CAP CAPSULE PO SCH ×2 (09:12→20:41)
[2020-03-12] MEDS: GABAPENTIN 300 MG CAPSULE GT SCH ×2 (09:12→20:38)
[2020-03-12] MEDS: guaiFENesin ER 600 MG TAB GT SCH ×2 (09:12→20:38)
[2020-03-12] MEDS: QUEtiapine FUMARATE 100 MG TABLET PO SCH ×3 (09:12→20:41)
[2020-03-12] MEDS: AMIODARONE HCL 200 MG TABLET NG SCH ×2 (09:13→20:40)
[2020-03-12] MEDS: HYDROmorphone 2 MG/ML VIAL IVP PRN ×4 (09:36→21:33)
[2020-03-12] MEDS: DORZOLAMIDE 2% OPHTHALMIC SOLN 5ML OP SCH ×2 (10:08→20:41)
[2020-03-12] MEDS: BRIMONIDINE TARTRATE 0.2% 5 mL EYE DROPS EACH EYE SCH ×2 (10:08→20:38)
[2020-03-12] MEDS: NOREPINEPHRINE BITARTRATE 4 MG in D5W 250 ML IV PRN ×2 (12:32→16:29)
[2020-03-12] MEDS ORDERED: VANCOMYCIN HCL 1,500 MG in NS 250 ML IV ONE (13:00)
[2020-03-12] MEDS ORDERED: HEPARIN SODIUM, PORCINE 10,000 UNITS/ 10 ML VIAL MC ONE (13:30)
[2020-03-12] MEDS ORDERED: PIPERACILLIN/TAZO 2.25G/DEX-IS 50 ML IV SCH (14:00)
[2020-03-12] MEDS ORDERED: HEPARIN SODIUM,PORCINE 5000 UNITS/ML VIAL ONE (14:01)
[2020-03-12] MEDS: MEROPENEM 500 MG in NS 50 ML IV SCH ×2 (14:40→23:18)
[2020-03-12] MEDS: DILTIAZEM HCL 25 MG/5 ML VIAL IVP PRN (16:09)
[2020-03-12] MEDS: ATORVASTATIN 20 MG TABLET GT SCH (20:38)
[2020-03-12] MEDS: ALBUTEROL MDI INHALATION 8 GM INH INH SCH (21:21)
[2020-03-12] MEDS: ACETYLCYSTEINE 20% 4 ML VIAL (RT) INH SCH (21:21)
[2020-03-13] VITALS (35 sets, daily range): BP systolic 100–143
[2020-03-13] MEDS: ALBUTEROL MDI INHALATION 8 GM INH INH SCH ×3 (03:10→20:19)
[2020-03-13] MEDS: HYDROmorphone 2 MG/ML VIAL IVP PRN ×4 (03:50→15:39)
[2020-03-13] MEDS: hydrALAZINE HCL 20 MG/ML VIAL IVP SCH ×3 (05:09→18:00)
[2020-03-13] MEDS: HEPARIN SODIUM,PORCINE 5000 UNITS/ML VIAL SUBCUT SCH ×3 (05:13→21:25)
[2020-03-13 06:15] LABS: BASOPHILS # (AUTO) 0.2 K/uL (0.0-0.2); BASOPHILS % (AUTO) 0.7 % (0.0-2.0); EOSINOPHILS # (AUTO) 0.3 K/uL (0.0-0.4); EOSINOPHILS % (AUTO) 1.4 % (0.0-4.0); HEMATOCRIT 24.3 % (36-54); HEMOGLOBIN 7.8 g/dL (14.0-18.0); LYMPHOCYTES # (AUTO) 1.8 K/uL (1.0-5.5); LYMPHOCYTES % (AUTO) 8.5 % (20.5-51.5); MEAN CORPUSCULAR HEMOGLOBIN 29 pg (27-31); MEAN CORPUSCULAR HGB CONC 32 % (32-36); MEAN CORPUSCULAR VOLUME 90 fL (79.0-98.0); MONOCYTES # (AUTO) 1.8 K/uL (0.0-1.0); MONOCYTES % (AUTO) 8.1 % (1.7-9.3); NEUTROPHILS # (AUTO) 17.5 K/uL (1.8-7.7); NEUTROPHILS % (AUTO) 81.3 % (40.0-70.0); PLATELET COUNT (AUTO) 520 K/uL (130-430); RED BLOOD CELL COUNT(AUTO) 2.71 MIL/uL (4.2-6.2); RED CELL DISTRIBUTION WIDTH 16.7 % (9.0-15.0); WHITE BLOOD COUNT (AUTO) 21.6 K/uL (4.8-10.8)
[2020-03-13] MEDS: INSULIN NPH 100 UNITS/ML 10 ML VIAL SUBCUT SCH ×2 (06:17→18:21)
[2020-03-13 06:37] LABS: ALBUMIN 1.8 g/dL (3.4-4.8); CALCIUM 7.9 mg/dL (8.4-11.0); CREATININE 5.41 mg/dL (0.55-1.30); POTASSIUM 4.9 mmol/L (3.5-5.1); TOTAL BILIRUBIN 0.7 mg/dL (0.0-1.0)
[2020-03-13] MEDS: QUEtiapine FUMARATE 100 MG TABLET PO SCH ×3 (08:53→21:00)
[2020-03-13] MEDS: GABAPENTIN 300 MG CAPSULE GT SCH ×2 (08:53→21:00)
[2020-03-13] MEDS: guaiFENesin ER 600 MG TAB GT SCH ×2 (08:53→21:00)
[2020-03-13] MEDS: FERROUS SULFATE 300 MG/5 ML UDC GT SCH ×2 (08:54→20:59)
[2020-03-13] MEDS: PANTOPRAZOLE SODIUM 40 MG/VIAL (PROTONIX) IVP SCH ×2 (08:54→21:00)
[2020-03-13] MEDS: FOLIC ACID 1 MG TABLET GT SCH (08:54)
[2020-03-13] MEDS: LACTOBACILLUS RHAMNOSUS GG 1 CAP CAPSULE PO SCH ×2 (08:54→21:00)
[2020-03-13] MEDS: AMIODARONE HCL 200 MG TABLET NG SCH ×2 (09:00→21:01)
[2020-03-13] MEDS: DORZOLAMIDE 2% OPHTHALMIC SOLN 5ML OP SCH ×2 (09:00→21:32)
[2020-03-13] MEDS: amLODIPine BESYLATE 10 MG TABLET NG SCH (09:00)
[2020-03-13] MEDS: BRIMONIDINE TARTRATE 0.2% 5 mL EYE DROPS EACH EYE SCH ×2 (09:00→21:33)
[2020-03-13] MEDS: MEROPENEM 500 MG in NS 50 ML IV SCH (12:15)
[2020-03-13] MEDS: NYSTATIN 15 GM TOPICAL POWDER TP SCH ×2 (15:14→21:32)
[2020-03-13] MEDS: BALSAM PERU/CASTOR OIL 60 GM OINT...G. TP SCH (15:15)
[2020-03-13] MEDS: ACETYLCYSTEINE 20% 4 ML VIAL (RT) INH SCH ×3 (16:41→20:19)
[2020-03-13] MEDS: INSULIN LISPRO SLIDING SCALE 100 UNITS/ML VIAL (humaLOG) SUBCUT PRN (18:23)
[2020-03-13] MEDS: ATORVASTATIN 20 MG TABLET GT SCH (21:00)
[2020-03-14] VITALS (36 sets, daily range): BP systolic 92–145
[2020-03-14] MEDS: MEROPENEM 500 MG in NS 50 ML IV SCH ×2 (00:08→12:00)
[2020-03-14] MEDS: hydrALAZINE HCL 20 MG/ML VIAL IVP SCH ×3 (00:10→12:00)
[2020-03-14] MEDS: INSULIN LISPRO SLIDING SCALE 100 UNITS/ML VIAL (humaLOG) SUBCUT PRN ×2 (01:08→06:38)
[2020-03-14] MEDS: ALBUTEROL MDI INHALATION 8 GM INH INH SCH ×4 (01:30→20:16)
[2020-03-14] MEDS: HEPARIN SODIUM,PORCINE 5000 UNITS/ML VIAL SUBCUT SCH ×3 (05:35→21:03)
[2020-03-14 06:39] LABS: HEMATOCRIT 25.4 % (36-54); HEMOGLOBIN 8.1 g/dL (14.0-18.0); MEAN CORPUSCULAR HEMOGLOBIN 29 pg (27-31); MEAN CORPUSCULAR HGB CONC 32 % (32-36); MEAN CORPUSCULAR VOLUME 90 fL (79.0-98.0); PLATELET COUNT (AUTO) 508 K/uL (130-430); RED BLOOD CELL COUNT(AUTO) 2.84 MIL/uL (4.2-6.2); RED CELL DISTRIBUTION WIDTH 17.4 % (9.0-15.0); WHITE BLOOD COUNT (AUTO) 26.8 K/uL (4.8-10.8)
[2020-03-14] MEDS: INSULIN NPH 100 UNITS/ML 10 ML VIAL SUBCUT SCH (06:40)
[2020-03-14 06:47] LABS: CALCIUM 8.1 mg/dL (8.4-11.0); CREATININE 6.97 mg/dL (0.55-1.30)
[2020-03-14 06:54] LABS: POTASSIUM 6.1 mmol/L (3.5-5.1)
[2020-03-14 07:09] LABS: VANCOMYCIN,RANDOM 7.8 ug/mL
[2020-03-14] MEDS: ACETYLCYSTEINE 20% 4 ML VIAL (RT) INH SCH ×3 (08:17→20:16)
[2020-03-14] MEDS: PANTOPRAZOLE SODIUM 40 MG/VIAL (PROTONIX) IVP SCH ×2 (08:23→20:59)
[2020-03-14] MEDS: QUEtiapine FUMARATE 100 MG TABLET PO SCH ×3 (08:24→20:59)
[2020-03-14] MEDS: guaiFENesin ER 600 MG TAB GT SCH ×2 (08:24→21:01)
[2020-03-14] MEDS: FOLIC ACID 1 MG TABLET GT SCH (08:24)
[2020-03-14] MEDS: GABAPENTIN 300 MG CAPSULE GT SCH ×2 (08:24→20:59)
[2020-03-14] MEDS: FERROUS SULFATE 300 MG/5 ML UDC GT SCH ×2 (08:24→21:01)
[2020-03-14] MEDS: LACTOBACILLUS RHAMNOSUS GG 1 CAP CAPSULE PO SCH ×2 (08:24→20:59)
[2020-03-14] MEDS: amLODIPine BESYLATE 10 MG TABLET NG SCH (08:27)
[2020-03-14] MEDS: AMIODARONE HCL 200 MG TABLET NG SCH ×2 (08:31→21:00)
[2020-03-14] MEDS: LORazepam 2 MG/ML VIAL IVP PRN ×2 (08:44→14:41)
[2020-03-14] MEDS: BRIMONIDINE TARTRATE 0.2% 5 mL EYE DROPS EACH EYE SCH ×2 (09:00→21:17)
[2020-03-14] MEDS: DORZOLAMIDE 2% OPHTHALMIC SOLN 5ML OP SCH ×2 (09:00→21:17)
[2020-03-14] MEDS: BALSAM PERU/CASTOR OIL 60 GM OINT...G. TP SCH (09:01)
[2020-03-14] MEDS: NYSTATIN 15 GM TOPICAL POWDER TP SCH ×2 (09:01→21:17)
[2020-03-14 09:10] LABS: BASOPHILS % (MANUAL) 0 % (0-2)
[2020-03-14 09:15] LABS: BAND % (MANUAL) 6 % (0-6); EOSINOPHILS % (MANUAL) 1 % (0-7); LYMPHOCYTES % (MANUAL) 5 % (20-46); METAMYELOCYTES % 3 % (0-0); MONOCYTES % (MANUAL) 12 % (0-11)
[2020-03-14] MEDS ORDERED: VANCOMYCIN HCL 1,500 MG in NS 250 ML IV ONE (12:15)
[2020-03-14] MEDS ORDERED: HEPARIN SODIUM,PORCINE 5000 UNITS/ML VIAL ONE (13:13)
[2020-03-14] MEDS ORDERED: ALBUMIN HUMAN 25% 200 ML IV ONE (14:12)
[2020-03-14] MEDS: ACETAMINOPHEN 650 MG/20.3 ML UDC GT PRN (15:16)
[2020-03-14] MEDS: EPOETIN ALFA 10,000 UNITS/ML VIAL SUBCUT SCH (16:44)
[2020-03-14] MEDS ORDERED: INSULIN NPH 100 UNITS/ML 10 ML VIAL SUBCUT PRN (18:15)
[2020-03-14] MEDS ORDERED: INSULIN NPH 100 UNITS/ML 10 ML VIAL SUBCUT ONE (20:00)
[2020-03-14] MEDS ORDERED: COMMUNICATION ORDER XX ONE (20:00)
[2020-03-14] MEDS: ATORVASTATIN 20 MG TABLET GT SCH (20:59)
[2020-03-15] VITALS (34 sets, daily range): BP systolic 98–147
[2020-03-15] MEDS: MEROPENEM 500 MG in NS 50 ML IV SCH ×3 (01:10→23:00)
[2020-03-15] MEDS: HYDROmorphone 2 MG/ML VIAL IVP PRN ×3 (01:19→21:50)
[2020-03-15] MEDS: ALBUTEROL MDI INHALATION 8 GM INH INH SCH ×4 (02:00→19:40)
[2020-03-15] MEDS: HEPARIN SODIUM,PORCINE 5000 UNITS/ML VIAL SUBCUT SCH ×3 (05:55→22:15)
[2020-03-15] MEDS: LORazepam 2 MG/ML VIAL IVP PRN ×2 (05:56→18:15)
[2020-03-15] MEDS ORDERED: INSULIN NPH 100 UNITS/ML 10 ML VIAL SUBCUT SCH (07:00)
[2020-03-15 07:33] LABS: BASOPHILS # (AUTO) 0.3 K/uL (0.0-0.2); BASOPHILS % (AUTO) 1.5 % (0.0-2.0); EOSINOPHILS # (AUTO) 0.7 K/uL (0.0-0.4); EOSINOPHILS % (AUTO) 3.3 % (0.0-4.0); HEMATOCRIT 23.9 % (36-54); HEMOGLOBIN 7.5 g/dL (14.0-18.0); LYMPHOCYTES # (AUTO) 2.3 K/uL (1.0-5.5); LYMPHOCYTES % (AUTO) 10.8 % (20.5-51.5); MEAN CORPUSCULAR HEMOGLOBIN 28 pg (27-31); MEAN CORPUSCULAR HGB CONC 31 % (32-36); MEAN CORPUSCULAR VOLUME 90 fL (79.0-98.0); MONOCYTES # (AUTO) 1.3 K/uL (0.0-1.0); MONOCYTES % (AUTO) 6.1 % (1.7-9.3); PLATELET COUNT (AUTO) 465 K/uL (130-430); RED BLOOD CELL COUNT(AUTO) 2.67 MIL/uL (4.2-6.2); RED CELL DISTRIBUTION WIDTH 17.3 % (9.0-15.0); WHITE BLOOD COUNT (AUTO) 21.6 K/uL (4.8-10.8)
[2020-03-15 07:41] LABS: NEUTROPHILS % (AUTO) 78.3 % (40.0-70.0)
[2020-03-15] MEDS: ACETYLCYSTEINE 20% 4 ML VIAL (RT) INH SCH ×3 (07:51→19:40)
[2020-03-15 07:59] LABS: ALBUMIN 2.3 g/dL (3.4-4.8); CALCIUM 8.3 mg/dL (8.4-11.0); CREATININE 5.71 mg/dL (0.55-1.30); TOTAL BILIRUBIN 0.7 mg/dL (0.0-1.0)
[2020-03-15] MEDS: QUEtiapine FUMARATE 100 MG TABLET PO SCH ×3 (08:18→20:50)
[2020-03-15] MEDS: PANTOPRAZOLE SODIUM 40 MG/VIAL (PROTONIX) IVP SCH ×2 (08:18→20:48)
[2020-03-15] MEDS: GABAPENTIN 300 MG CAPSULE GT SCH ×2 (08:18→20:48)
[2020-03-15] MEDS: LACTOBACILLUS RHAMNOSUS GG 1 CAP CAPSULE PO SCH ×2 (08:18→20:50)
[2020-03-15] MEDS: FERROUS SULFATE 300 MG/5 ML UDC GT SCH ×2 (08:18→20:47)
[2020-03-15] MEDS: FOLIC ACID 1 MG TABLET GT SCH (08:18)
[2020-03-15] MEDS: AMIODARONE HCL 200 MG TABLET NG SCH ×2 (08:19→20:49)
[2020-03-15] MEDS: guaiFENesin ER 600 MG TAB GT SCH ×2 (08:19→20:48)
[2020-03-15] MEDS: amLODIPine BESYLATE 10 MG TABLET NG SCH (08:20)
[2020-03-15] MEDS: DORZOLAMIDE 2% OPHTHALMIC SOLN 5ML OP SCH ×2 (08:21→20:50)
[2020-03-15] MEDS: BRIMONIDINE TARTRATE 0.2% 5 mL EYE DROPS EACH EYE SCH ×2 (08:22→20:47)
[2020-03-15] MEDS: NYSTATIN 15 GM TOPICAL POWDER TP SCH ×2 (09:55→20:51)
[2020-03-15] MEDS: BALSAM PERU/CASTOR OIL 60 GM OINT...G. TP SCH (09:55)
[2020-03-15] MEDS: INSULIN NPH 100 UNITS/ML 10 ML VIAL SUBCUT SCH (17:00)
[2020-03-15] MEDS: ATORVASTATIN 20 MG TABLET GT SCH (20:48)
[2020-03-16] VITALS (37 sets, daily range): BP systolic 91–132
[2020-03-16] MEDS: HYDROmorphone 2 MG/ML VIAL IVP PRN ×3 (01:32→22:43)
[2020-03-16 05:59] LABS: BASOPHILS # (AUTO) 0.3 K/uL (0.0-0.2); EOSINOPHILS # (AUTO) 0.7 K/uL (0.0-0.4); EOSINOPHILS % (AUTO) 2.5 % (0.0-4.0); HEMATOCRIT 24.7 % (36-54); HEMOGLOBIN 7.8 g/dL (14.0-18.0); LYMPHOCYTES # (AUTO) 2.6 K/uL (1.0-5.5); LYMPHOCYTES % (AUTO) 9.7 % (20.5-51.5); MEAN CORPUSCULAR HEMOGLOBIN 28 pg (27-31); MEAN CORPUSCULAR HGB CONC 32 % (32-36); MEAN CORPUSCULAR VOLUME 90 fL (79.0-98.0); MONOCYTES % (AUTO) 7.6 % (1.7-9.3); NEUTROPHILS # (AUTO) 21.3 K/uL (1.8-7.7); NEUTROPHILS % (AUTO) 79.2 % (40.0-70.0); PLATELET COUNT (AUTO) 443 K/uL (130-430); RED BLOOD CELL COUNT(AUTO) 2.75 MIL/uL (4.2-6.2); RED CELL DISTRIBUTION WIDTH 17.8 % (9.0-15.0); WHITE BLOOD COUNT (AUTO) 26.9 K/uL (4.8-10.8)
[2020-03-16 06:03] LABS: ALBUMIN 2.3 g/dL (3.4-4.8); CALCIUM 8.1 mg/dL (8.4-11.0); CREATININE 7.22 mg/dL (0.55-1.30); TOTAL BILIRUBIN 0.8 mg/dL (0.0-1.0); VANCOMYCIN,RANDOM 12.9 ug/mL
[2020-03-16 06:15] LABS: POTASSIUM 6.2 mmol/L (3.5-5.1)
[2020-03-16] MEDS: HEPARIN SODIUM,PORCINE 5000 UNITS/ML VIAL SUBCUT SCH ×3 (06:29→21:13)
[2020-03-16] MEDS: FERROUS SULFATE 300 MG/5 ML UDC GT SCH ×2 (08:41→21:06)
[2020-03-16] MEDS: LACTOBACILLUS RHAMNOSUS GG 1 CAP CAPSULE PO SCH ×2 (08:41→21:08)
[2020-03-16] MEDS: GABAPENTIN 300 MG CAPSULE GT SCH ×2 (08:41→21:06)
[2020-03-16] MEDS: guaiFENesin ER 600 MG TAB GT SCH ×2 (08:41→21:06)
[2020-03-16] MEDS: FOLIC ACID 1 MG TABLET GT SCH (08:42)
[2020-03-16] MEDS: PANTOPRAZOLE SODIUM 40 MG/VIAL (PROTONIX) IVP SCH (08:43)
[2020-03-16] MEDS: AMIODARONE HCL 200 MG TABLET NG SCH ×2 (08:43→21:07)
[2020-03-16] MEDS: amLODIPine BESYLATE 10 MG TABLET NG SCH (08:43)
[2020-03-16] MEDS: BALSAM PERU/CASTOR OIL 60 GM OINT...G. TP SCH (08:44)
[2020-03-16] MEDS: NYSTATIN 15 GM TOPICAL POWDER TP SCH ×2 (08:44→21:09)
[2020-03-16] MEDS: DORZOLAMIDE 2% OPHTHALMIC SOLN 5ML OP SCH ×2 (08:44→21:08)
[2020-03-16] MEDS: QUEtiapine FUMARATE 100 MG TABLET PO SCH ×3 (08:45→21:08)
[2020-03-16] MEDS: BRIMONIDINE TARTRATE 0.2% 5 mL EYE DROPS EACH EYE SCH ×2 (09:00→21:06)
[2020-03-16] MEDS: ALBUTEROL MDI INHALATION 8 GM INH INH SCH ×3 (09:14→21:44)
[2020-03-16] MEDS: ACETYLCYSTEINE 20% 4 ML VIAL (RT) INH SCH ×3 (09:15→21:43)
[2020-03-16] MEDS ORDERED: ALBUMIN HUMAN 25% 100 ML IV ONE ×2 (10:15→10:45)
[2020-03-16] MEDS ORDERED: HEPARIN SODIUM,PORCINE 5000 UNITS/ML VIAL MC ONE (10:45)
[2020-03-16] MEDS ORDERED: HEPARIN SODIUM, PORCINE 10,000 UNITS/ 10 ML VIAL MC ONE (10:45)
[2020-03-16] MEDS ORDERED: HEPARIN SODIUM,PORCINE 5000 UNITS/ML VIAL ONE (11:06)
[2020-03-16] MEDS: MEROPENEM 500 MG in NS 50 ML IV SCH (13:16)
[2020-03-16] MEDS: EPOETIN ALFA 10,000 UNITS/ML VIAL SUBCUT SCH (17:20)
[2020-03-16] MEDS: INSULIN LISPRO SLIDING SCALE 100 UNITS/ML VIAL (humaLOG) SUBCUT PRN (17:29)
[2020-03-16] MEDS: INSULIN NPH 100 UNITS/ML 10 ML VIAL SUBCUT SCH (17:32)
[2020-03-16] MEDS: ATORVASTATIN 20 MG TABLET GT SCH (21:06)
[2020-03-17] VITALS (35 sets, daily range): BP systolic 97–127
[2020-03-17] MEDS: MEROPENEM 500 MG in NS 50 ML IV SCH ×2 (02:00→13:23)
[2020-03-17] MEDS: ALBUTEROL MDI INHALATION 8 GM INH INH SCH ×4 (02:23→22:02)
[2020-03-17] MEDS: HYDROmorphone 2 MG/ML VIAL IVP PRN ×2 (03:26→07:00)
[2020-03-17 05:58] LABS: BASOPHILS # (AUTO) 0.3 K/uL (0.0-0.2); BASOPHILS % (AUTO) 1.2 % (0.0-2.0); EOSINOPHILS # (AUTO) 0.7 K/uL (0.0-0.4); EOSINOPHILS % (AUTO) 2.6 % (0.0-4.0); HEMATOCRIT 23.5 % (36-54); HEMOGLOBIN 7.4 g/dL (14.0-18.0); LYMPHOCYTES % (AUTO) 7.1 % (20.5-51.5); MEAN CORPUSCULAR HEMOGLOBIN 28 pg (27-31); MEAN CORPUSCULAR HGB CONC 31 % (32-36); MEAN CORPUSCULAR VOLUME 89 fL (79.0-98.0); MONOCYTES # (AUTO) 1.7 K/uL (0.0-1.0); MONOCYTES % (AUTO) 6.1 % (1.7-9.3); NEUTROPHILS # (AUTO) 23.2 K/uL (1.8-7.7); PLATELET COUNT (AUTO) 367 K/uL (130-430); RED BLOOD CELL COUNT(AUTO) 2.66 MIL/uL (4.2-6.2); RED CELL DISTRIBUTION WIDTH 17.1 % (9.0-15.0); WHITE BLOOD COUNT (AUTO) 27.9 K/uL (4.8-10.8)
[2020-03-17] MEDS: HEPARIN SODIUM,PORCINE 5000 UNITS/ML VIAL SUBCUT SCH ×3 (06:00→22:00)
[2020-03-17] MEDS: INSULIN NPH 100 UNITS/ML 10 ML VIAL SUBCUT SCH (06:34)
[2020-03-17 07:01] LABS: CALCIUM 8.1 mg/dL (8.4-11.0); CREATININE 5.65 mg/dL (0.55-1.30); POTASSIUM 5.6 mmol/L (3.5-5.1); VANCOMYCIN,RANDOM 8.7 ug/mL
[2020-03-17] MEDS: ACETYLCYSTEINE 20% 4 ML VIAL (RT) INH SCH ×3 (07:16→22:03)
[2020-03-17] MEDS: BRIMONIDINE TARTRATE 0.2% 5 mL EYE DROPS EACH EYE SCH ×2 (09:19→22:30)
[2020-03-17] MEDS: DORZOLAMIDE 2% OPHTHALMIC SOLN 5ML OP SCH ×2 (09:22→22:30)
[2020-03-17] MEDS: NYSTATIN 15 GM TOPICAL POWDER TP SCH ×2 (09:23→22:30)
[2020-03-17] MEDS: BALSAM PERU/CASTOR OIL 60 GM OINT...G. TP SCH (09:23)
[2020-03-17] MEDS: FERROUS SULFATE 300 MG/5 ML UDC GT SCH ×2 (09:30→23:46)
[2020-03-17] MEDS: QUEtiapine FUMARATE 100 MG TABLET PO SCH ×3 (09:31→23:48)
[2020-03-17] MEDS: GABAPENTIN 300 MG CAPSULE GT SCH ×2 (09:31→22:30)
[2020-03-17] MEDS: guaiFENesin ER 600 MG TAB GT SCH ×2 (09:31→23:48)
[2020-03-17] MEDS: LACTOBACILLUS RHAMNOSUS GG 1 CAP CAPSULE PO SCH ×2 (09:32→23:49)
[2020-03-17] MEDS: FOLIC ACID 1 MG TABLET GT SCH (09:32)
[2020-03-17] MEDS: AMIODARONE HCL 200 MG TABLET NG SCH ×2 (09:32→23:46)
[2020-03-17] MEDS: PANTOPRAZOLE SODIUM 40 MG/VIAL (PROTONIX) IVP SCH (09:33)
[2020-03-17] MEDS: amLODIPine BESYLATE 10 MG TABLET NG SCH (09:33)
[2020-03-17] MEDS ORDERED: VANCOMYCIN HCL 1,500 MG in NS 250 ML IV ONE (14:00)
[2020-03-17] MEDS ORDERED: SODIUM POLYSTYRENE SULFONATE 15 GM/60 ML UDBTL PO ONE (14:15)
[2020-03-17] MEDS ORDERED: PROPOFOL DRIP 100 ML IV PRN (19:30)
[2020-03-17] MEDS: ATORVASTATIN 20 MG TABLET GT SCH (23:49)
[2020-03-18] VITALS (36 sets, daily range): BP systolic 86–135
[2020-03-18] MEDS: HEPARIN SODIUM,PORCINE 5000 UNITS/ML VIAL SUBCUT SCH ×3 (06:00→21:41)
[2020-03-18] MEDS ORDERED: INSULIN NPH 100 UNITS/ML 10 ML VIAL SUBCUT SCH (07:00)
[2020-03-18 07:17] LABS: HEMATOCRIT 23.1 % (36-54); HEMOGLOBIN 7.3 g/dL (14.0-18.0); MEAN CORPUSCULAR HEMOGLOBIN 28 pg (27-31); MEAN CORPUSCULAR HGB CONC 32 % (32-36); MEAN CORPUSCULAR VOLUME 90 fL (79.0-98.0); PLATELET COUNT (AUTO) 356 K/uL (130-430); RED BLOOD CELL COUNT(AUTO) 2.58 MIL/uL (4.2-6.2); RED CELL DISTRIBUTION WIDTH 17.8 % (9.0-15.0); WHITE BLOOD COUNT (AUTO) 29.8 K/uL (4.8-10.8)
[2020-03-18 07:44] LABS: ALBUMIN 2.4 g/dL (3.4-4.8); CALCIUM 8.4 mg/dL (8.4-11.0); CREATININE 7.32 mg/dL (0.55-1.30); POTASSIUM 5.6 mmol/L (3.5-5.1); TOTAL BILIRUBIN 0.8 mg/dL (0.0-1.0)
[2020-03-18] MEDS: ALBUTEROL MDI INHALATION 8 GM INH INH SCH ×3 (08:12→21:06)
[2020-03-18] MEDS: ACETYLCYSTEINE 20% 4 ML VIAL (RT) INH SCH ×3 (08:13→21:06)
[2020-03-18] MEDS: BRIMONIDINE TARTRATE 0.2% 5 mL EYE DROPS EACH EYE SCH ×2 (08:48→21:30)
[2020-03-18] MEDS: NYSTATIN 15 GM TOPICAL POWDER TP SCH ×2 (08:49→21:31)
[2020-03-18] MEDS: BALSAM PERU/CASTOR OIL 60 GM OINT...G. TP SCH (08:49)
[2020-03-18] MEDS: DORZOLAMIDE 2% OPHTHALMIC SOLN 5ML OP SCH ×2 (08:49→21:30)
[2020-03-18] MEDS: guaiFENesin ER 600 MG TAB GT SCH ×2 (09:07→21:04)
[2020-03-18] MEDS: FERROUS SULFATE 300 MG/5 ML UDC GT SCH ×2 (09:07→21:04)
[2020-03-18] MEDS: LACTOBACILLUS RHAMNOSUS GG 1 CAP CAPSULE PO SCH ×2 (09:07→21:39)
[2020-03-18] MEDS: FOLIC ACID 1 MG TABLET GT SCH (09:07)
[2020-03-18] MEDS: GABAPENTIN 300 MG CAPSULE GT SCH ×2 (09:07→21:04)
[2020-03-18] MEDS: QUEtiapine FUMARATE 100 MG TABLET PO SCH ×3 (09:07→21:07)
[2020-03-18] MEDS: PANTOPRAZOLE SODIUM 40 MG/VIAL (PROTONIX) IVP SCH (09:08)
[2020-03-18] MEDS: amLODIPine BESYLATE 10 MG TABLET NG SCH (09:08)
[2020-03-18] MEDS: AMIODARONE HCL 200 MG TABLET NG SCH ×2 (09:08→21:06)
[2020-03-18] MEDS ORDERED: COMMUNICATION ORDER XX ONE ×2 (10:30→11:15)
[2020-03-18] MEDS ORDERED: ALBUMIN HUMAN 25% 200 ML IV ONE (10:30)
[2020-03-18 10:47] LABS: BAND % (MANUAL) 6 % (0-6); BASOPHILS % (MANUAL) 0 % (0-2); EOSINOPHILS % (MANUAL) 1 % (0-7); LYMPHOCYTES % (MANUAL) 6 % (20-46); MONOCYTES % (MANUAL) 4 % (0-11)
[2020-03-18] MEDS ORDERED: INSULIN NPH 100 UNITS/ML 10 ML VIAL SUBCUT ONE ×2 (11:00→21:00)
[2020-03-18] MEDS: MEROPENEM 500 MG in NS 50 ML IV SCH ×3 (11:27)
[2020-03-18] MEDS: INSULIN LISPRO SLIDING SCALE 100 UNITS/ML VIAL (humaLOG) SUBCUT PRN ×2 (11:39→18:38)
[2020-03-18] MEDS ORDERED: HEPARIN SODIUM,PORCINE 5000 UNITS/ML VIAL SUBCUT ONE ×2 (12:15)
[2020-03-18] MEDS: EPOETIN ALFA 10,000 UNITS/ML VIAL SUBCUT SCH (16:22)
[2020-03-18] MEDS: ATORVASTATIN 20 MG TABLET GT SCH (21:04)
[2020-03-19] VITALS (29 sets, daily range): BP systolic 90–132
[2020-03-19] MEDS: INSULIN LISPRO SLIDING SCALE 100 UNITS/ML VIAL (humaLOG) SUBCUT PRN ×3 (00:15→18:19)
[2020-03-19] MEDS: ALBUTEROL MDI INHALATION 8 GM INH INH SCH ×2 (03:03→21:03)
[2020-03-19 05:50] LABS: BASOPHILS # (AUTO) 0.2 K/uL (0.0-0.2); LYMPHOCYTES # (AUTO) 2.2 K/uL (1.0-5.5)
[2020-03-19 06:00] LABS: BASOPHILS % (AUTO) 0.6 % (0.0-2.0); EOSINOPHILS % (AUTO) 3.6 % (0.0-4.0); HEMATOCRIT 23.2 % (36-54); HEMOGLOBIN 7.2 g/dL (14.0-18.0); MEAN CORPUSCULAR HEMOGLOBIN 28 pg (27-31); MEAN CORPUSCULAR HGB CONC 31 % (32-36); MEAN CORPUSCULAR VOLUME 89 fL (79.0-98.0); MONOCYTES # (AUTO) 1.8 K/uL (0.0-1.0); MONOCYTES % (AUTO) 6.5 % (1.7-9.3); NEUTROPHILS # (AUTO) 22.1 K/uL (1.8-7.7); PLATELET COUNT (AUTO) 339 K/uL (130-430); RED CELL DISTRIBUTION WIDTH 17.2 % (9.0-15.0); WHITE BLOOD COUNT (AUTO) 27.2 K/uL (4.8-10.8)
[2020-03-19 06:02] LABS: CALCIUM 8.7 mg/dL (8.4-11.0); CREATININE 5.71 mg/dL (0.55-1.30)
[2020-03-19] MEDS: INSULIN NPH 100 UNITS/ML 10 ML VIAL SUBCUT SCH ×2 (06:42→18:20)
[2020-03-19] MEDS: HEPARIN SODIUM,PORCINE 5000 UNITS/ML VIAL SUBCUT SCH ×3 (06:43→21:58)
[2020-03-19 06:49] LABS: NEUTROPHILS % (AUTO) 81.3 % (40.0-70.0)
[2020-03-19] MEDS: ACETYLCYSTEINE 20% 4 ML VIAL (RT) INH SCH ×2 (08:13→21:00)
[2020-03-19] MEDS: amLODIPine BESYLATE 10 MG TABLET NG SCH ×2 (09:00→09:21)
[2020-03-19] MEDS: BRIMONIDINE TARTRATE 0.2% 5 mL EYE DROPS EACH EYE SCH ×2 (09:20→22:29)
[2020-03-19] MEDS: guaiFENesin ER 600 MG TAB GT SCH ×2 (09:21→21:57)
[2020-03-19] MEDS: GABAPENTIN 300 MG CAPSULE GT SCH ×2 (09:21→21:58)
[2020-03-19] MEDS: DORZOLAMIDE 2% OPHTHALMIC SOLN 5ML OP SCH ×2 (09:21→22:29)
[2020-03-19] MEDS: PANTOPRAZOLE SODIUM 40 MG/VIAL (PROTONIX) IVP SCH (09:21)
[2020-03-19] MEDS: AMIODARONE HCL 200 MG TABLET NG SCH ×2 (09:21→22:03)
[2020-03-19] MEDS: FOLIC ACID 1 MG TABLET GT SCH (09:21)
[2020-03-19] MEDS: FERROUS SULFATE 300 MG/5 ML UDC GT SCH ×2 (09:21→21:57)
[2020-03-19] MEDS: QUEtiapine FUMARATE 100 MG TABLET PO SCH ×3 (09:22→21:57)
[2020-03-19] MEDS: LACTOBACILLUS RHAMNOSUS GG 1 CAP CAPSULE PO SCH ×2 (09:22→21:57)
[2020-03-19] MEDS: NYSTATIN 15 GM TOPICAL POWDER TP SCH ×2 (09:22→22:29)
[2020-03-19] MEDS: BALSAM PERU/CASTOR OIL 60 GM OINT...G. TP SCH (09:23)
[2020-03-19] MEDS ORDERED: VANCOMYCIN HCL 1,500 MG in NS 250 ML IV ONE (20:00)
[2020-03-19] MEDS: ATORVASTATIN 20 MG TABLET GT SCH (21:57)
[2020-03-19] MEDS ORDERED: HEPARIN SODIUM,PORCINE 5000 UNITS/ML VIAL ONE (22:40)
[2020-03-20] VITALS (35 sets, daily range): BP systolic 80–172
[2020-03-20] MEDS: INSULIN LISPRO SLIDING SCALE 100 UNITS/ML VIAL (humaLOG) SUBCUT PRN ×4 (01:54→17:46)
[2020-03-20] MEDS: HYDROmorphone 2 MG/ML VIAL IVP PRN (05:11)
[2020-03-20] MEDS: HEPARIN SODIUM,PORCINE 5000 UNITS/ML VIAL SUBCUT SCH ×3 (06:51→22:24)
[2020-03-20] MEDS: INSULIN NPH 100 UNITS/ML 10 ML VIAL SUBCUT SCH ×2 (07:16→17:44)
[2020-03-20 07:40] LABS: CALCIUM 8.5 mg/dL (8.4-11.0); CREATININE 4.73 mg/dL (0.55-1.30); POTASSIUM 4.2 mmol/L (3.5-5.1)
[2020-03-20 07:42] LABS: BASOPHILS # (AUTO) 0.2 K/uL (0.0-0.2); BASOPHILS % (AUTO) 0.9 % (0.0-2.0); EOSINOPHILS # (AUTO) 0.9 K/uL (0.0-0.4); EOSINOPHILS % (AUTO) 3.6 % (0.0-4.0); HEMATOCRIT 26.4 % (36-54); HEMOGLOBIN 8.5 g/dL (14.0-18.0); LYMPHOCYTES # (AUTO) 1.5 K/uL (1.0-5.5); LYMPHOCYTES % (AUTO) 6.2 % (20.5-51.5); MEAN CORPUSCULAR HEMOGLOBIN 28 pg (27-31); MEAN CORPUSCULAR HGB CONC 32 % (32-36); MEAN CORPUSCULAR VOLUME 88 fL (79.0-98.0); MONOCYTES # (AUTO) 1.4 K/uL (0.0-1.0); MONOCYTES % (AUTO) 5.6 % (1.7-9.3); NEUTROPHILS # (AUTO) 20.4 K/uL (1.8-7.7); PLATELET COUNT (AUTO) 362 K/uL (130-430); RED BLOOD CELL COUNT(AUTO) 2.99 MIL/uL (4.2-6.2); RED CELL DISTRIBUTION WIDTH 16.8 % (9.0-15.0); WHITE BLOOD COUNT (AUTO) 24.4 K/uL (4.8-10.8)
[2020-03-20] MEDS: ACETYLCYSTEINE 20% 4 ML VIAL (RT) INH SCH ×2 (07:51→19:10)
[2020-03-20] MEDS: DORZOLAMIDE 2% OPHTHALMIC SOLN 5ML OP SCH ×2 (09:06→22:21)
[2020-03-20] MEDS: BRIMONIDINE TARTRATE 0.2% 5 mL EYE DROPS EACH EYE SCH ×2 (09:06→22:20)
[2020-03-20 09:13] LABS: NEUTROPHILS % (AUTO) 83.7 % (40.0-70.0)
[2020-03-20] MEDS: GABAPENTIN 300 MG CAPSULE GT SCH ×2 (09:15→22:21)
[2020-03-20] MEDS: PANTOPRAZOLE SODIUM 40 MG/VIAL (PROTONIX) IVP SCH (09:15)
[2020-03-20] MEDS: AMIODARONE HCL 200 MG TABLET NG SCH ×2 (09:15→21:00)
[2020-03-20] MEDS: FERROUS SULFATE 300 MG/5 ML UDC GT SCH ×2 (09:15→22:21)
[2020-03-20] MEDS: LACTOBACILLUS RHAMNOSUS GG 1 CAP CAPSULE PO SCH ×2 (09:15→22:21)
[2020-03-20] MEDS: FOLIC ACID 1 MG TABLET GT SCH (09:16)
[2020-03-20] MEDS: QUEtiapine FUMARATE 100 MG TABLET PO SCH ×3 (09:16→22:21)
[2020-03-20] MEDS: guaiFENesin ER 600 MG TAB GT SCH ×2 (09:17→22:21)
[2020-03-20] MEDS: amLODIPine BESYLATE 10 MG TABLET NG SCH (09:17)
[2020-03-20] MEDS: NYSTATIN 15 GM TOPICAL POWDER TP SCH ×2 (09:18→22:22)
[2020-03-20] MEDS: BALSAM PERU/CASTOR OIL 60 GM OINT...G. TP SCH (09:18)
[2020-03-20] MEDS: ALBUTEROL MDI INHALATION 8 GM INH INH SCH ×2 (10:03→19:10)
[2020-03-20] MEDS ORDERED: DIGOXIN 0.5 MG/2 ML AMP IVP ONE (17:30)
[2020-03-20] MEDS ORDERED: DIGOXIN 0.25 MG TABLET PO ONE (17:30)
[2020-03-20] MEDS ORDERED: DIGOXIN 0.5 MG/2 ML AMP ONE (17:43)
[2020-03-20] MEDS: LORazepam 2 MG/ML VIAL IVP PRN (17:59)
[2020-03-20] MEDS: ATORVASTATIN 20 MG TABLET GT SCH (22:21)
[2020-03-21] VITALS (33 sets, daily range): BP systolic 96–153
[2020-03-21] MEDS: INSULIN LISPRO SLIDING SCALE 100 UNITS/ML VIAL (humaLOG) SUBCUT PRN ×3 (00:46→17:34)
[2020-03-21] MEDS: ALBUTEROL MDI INHALATION 8 GM INH INH SCH ×4 (02:41→21:20)
[2020-03-21] MEDS: INSULIN NPH 100 UNITS/ML 10 ML VIAL SUBCUT SCH ×2 (06:00→17:35)
[2020-03-21] MEDS: HEPARIN SODIUM,PORCINE 5000 UNITS/ML VIAL SUBCUT SCH ×3 (06:01→22:16)
[2020-03-21 06:47] LABS: CALCIUM 8.9 mg/dL (8.4-11.0); CREATININE 4.35 mg/dL (0.55-1.30); VANCOMYCIN,RANDOM 27.5 ug/mL
[2020-03-21 07:03] LABS: BASOPHILS # (AUTO) 0.2 K/uL (0.0-0.2); BASOPHILS % (AUTO) 0.6 % (0.0-2.0); EOSINOPHILS # (AUTO) 0.5 K/uL (0.0-0.4); EOSINOPHILS % (AUTO) 1.8 % (0.0-4.0); HEMATOCRIT 29.8 % (36-54); HEMOGLOBIN 9.4 g/dL (14.0-18.0); LYMPHOCYTES # (AUTO) 1.7 K/uL (1.0-5.5); LYMPHOCYTES % (AUTO) 6.5 % (20.5-51.5); MEAN CORPUSCULAR HEMOGLOBIN 28 pg (27-31); MEAN CORPUSCULAR HGB CONC 32 % (32-36); MEAN CORPUSCULAR VOLUME 88 fL (79.0-98.0); MONOCYTES # (AUTO) 1.4 K/uL (0.0-1.0); MONOCYTES % (AUTO) 5.3 % (1.7-9.3); NEUTROPHILS # (AUTO) 22.8 K/uL (1.8-7.7); PLATELET COUNT (AUTO) 399 K/uL (130-430); RED BLOOD CELL COUNT(AUTO) 3.38 MIL/uL (4.2-6.2); RED CELL DISTRIBUTION WIDTH 16.6 % (9.0-15.0); WHITE BLOOD COUNT (AUTO) 26.6 K/uL (4.8-10.8)
[2020-03-21 07:24] LABS: NEUTROPHILS % (AUTO) 85.8 % (40.0-70.0)
[2020-03-21] MEDS: ACETYLCYSTEINE 20% 4 ML VIAL (RT) INH SCH ×3 (07:40→21:20)
[2020-03-21] MEDS: BRIMONIDINE TARTRATE 0.2% 5 mL EYE DROPS EACH EYE SCH ×2 (10:04→22:10)
[2020-03-21] MEDS: DORZOLAMIDE 2% OPHTHALMIC SOLN 5ML OP SCH ×2 (10:04→22:12)
[2020-03-21] MEDS: QUEtiapine FUMARATE 100 MG TABLET PO SCH ×3 (10:07→22:13)
[2020-03-21] MEDS: LACTOBACILLUS RHAMNOSUS GG 1 CAP CAPSULE PO SCH ×2 (10:07→22:12)
[2020-03-21] MEDS: guaiFENesin ER 600 MG TAB GT SCH ×2 (10:07→22:10)
[2020-03-21] MEDS: FOLIC ACID 1 MG TABLET GT SCH (10:08)
[2020-03-21] MEDS: amLODIPine BESYLATE 10 MG TABLET NG SCH (10:08)
[2020-03-21] MEDS: AMIODARONE HCL 200 MG TABLET NG SCH ×2 (10:09→22:12)
[2020-03-21] MEDS: BALSAM PERU/CASTOR OIL 60 GM OINT...G. TP SCH (10:09)
[2020-03-21] MEDS: FERROUS SULFATE 300 MG/5 ML UDC GT SCH ×2 (10:09→22:10)
[2020-03-21] MEDS: PANTOPRAZOLE SODIUM 40 MG/VIAL (PROTONIX) IVP SCH (10:09)
[2020-03-21] MEDS: NYSTATIN 15 GM TOPICAL POWDER TP SCH ×2 (10:10→22:13)
[2020-03-21] MEDS: GABAPENTIN 300 MG CAPSULE GT SCH ×2 (11:48→22:11)
[2020-03-21] MEDS: EPOETIN ALFA 10,000 UNITS/ML VIAL SUBCUT SCH (17:36)
[2020-03-21] MEDS: ATORVASTATIN 20 MG TABLET GT SCH (22:10)
[2020-03-22] VITALS (32 sets, daily range): BP systolic 83–119
[2020-03-22] MEDS: INSULIN LISPRO SLIDING SCALE 100 UNITS/ML VIAL (humaLOG) SUBCUT PRN ×3 (00:03→18:06)
[2020-03-22 06:31] LABS: CALCIUM 8.9 mg/dL (8.4-11.0); CREATININE 5.93 mg/dL (0.55-1.30)
[2020-03-22] MEDS: HEPARIN SODIUM,PORCINE 5000 UNITS/ML VIAL SUBCUT SCH ×3 (06:35→22:56)
[2020-03-22 06:54] LABS: POTASSIUM 5.9 mmol/L (3.5-5.1)
[2020-03-22] MEDS: INSULIN NPH 100 UNITS/ML 10 ML VIAL SUBCUT SCH ×3 (07:00→17:37)
[2020-03-22 07:04] LABS: HEMATOCRIT 30.2 % (36-54); HEMOGLOBIN 9.3 g/dL (14.0-18.0); MEAN CORPUSCULAR HEMOGLOBIN 28 pg (27-31); MEAN CORPUSCULAR HGB CONC 31 % (32-36); MEAN CORPUSCULAR VOLUME 89 fL (79.0-98.0); PLATELET COUNT (AUTO) 385 K/uL (130-430); RED BLOOD CELL COUNT(AUTO) 3.39 MIL/uL (4.2-6.2); RED CELL DISTRIBUTION WIDTH 16.6 % (9.0-15.0)
[2020-03-22] MEDS: LACTOBACILLUS RHAMNOSUS GG 1 CAP CAPSULE PO SCH ×2 (08:18→21:35)
[2020-03-22] MEDS: GABAPENTIN 300 MG CAPSULE GT SCH ×2 (08:18→21:33)
[2020-03-22] MEDS: FERROUS SULFATE 300 MG/5 ML UDC GT SCH ×2 (08:19→21:32)
[2020-03-22] MEDS: QUEtiapine FUMARATE 100 MG TABLET PO SCH ×3 (08:19→21:35)
[2020-03-22] MEDS: FOLIC ACID 1 MG TABLET GT SCH (08:19)
[2020-03-22] MEDS: amLODIPine BESYLATE 10 MG TABLET NG SCH (08:19)
[2020-03-22] MEDS: guaiFENesin ER 600 MG TAB GT SCH ×2 (08:19→21:32)
[2020-03-22] MEDS: PANTOPRAZOLE SODIUM 40 MG/VIAL (PROTONIX) IVP SCH (08:19)
[2020-03-22] MEDS: DORZOLAMIDE 2% OPHTHALMIC SOLN 5ML OP SCH ×2 (08:21→21:35)
[2020-03-22] MEDS: NYSTATIN 15 GM TOPICAL POWDER TP SCH ×2 (08:22→21:36)
[2020-03-22] MEDS: BRIMONIDINE TARTRATE 0.2% 5 mL EYE DROPS EACH EYE SCH ×2 (08:22→21:32)
[2020-03-22] MEDS: BALSAM PERU/CASTOR OIL 60 GM OINT...G. TP SCH (08:22)
[2020-03-22 08:49] LABS: WHITE BLOOD COUNT (AUTO) 30.2 K/uL (4.8-10.8)
[2020-03-22] MEDS: AMIODARONE HCL 200 MG TABLET NG SCH ×2 (09:00→21:35)
[2020-03-22] MEDS: ACETYLCYSTEINE 20% 4 ML VIAL (RT) INH SCH ×3 (09:08→21:00)
[2020-03-22] MEDS: ALBUTEROL MDI INHALATION 8 GM INH INH SCH ×3 (09:08→21:03)
[2020-03-22 12:59] LABS: BASOPHILS % (MANUAL) 0 % (0-2); EOSINOPHILS % (MANUAL) 1 % (0-7); LYMPHOCYTES % (MANUAL) 6 % (20-46); MONOCYTES % (MANUAL) 6 % (0-11)
[2020-03-22] MEDS: ATORVASTATIN 20 MG TABLET GT SCH (21:32)
[2020-03-23] VITALS (33 sets, daily range): BP systolic 80–115
[2020-03-23] MEDS: INSULIN LISPRO SLIDING SCALE 100 UNITS/ML VIAL (humaLOG) SUBCUT PRN ×4 (01:09→18:08)
[2020-03-23] MEDS ORDERED: MEROPENEM 500 MG VIAL IV ONE (03:03)
[2020-03-23] MEDS: MEROPENEM 500 MG in NS 50 ML IV SCH ×2 (03:25→12:59)
[2020-03-23] MEDS: ALBUTEROL MDI INHALATION 8 GM INH INH SCH ×3 (04:12→13:10)
[2020-03-23] MEDS: HEPARIN SODIUM,PORCINE 5000 UNITS/ML VIAL SUBCUT SCH ×3 (06:24→21:21)
[2020-03-23] MEDS: INSULIN NPH 100 UNITS/ML 10 ML VIAL SUBCUT SCH ×2 (06:57→18:07)
[2020-03-23 07:01] LABS: BASOPHILS # (AUTO) 0.2 K/uL (0.0-0.2); BASOPHILS % (AUTO) 0.9 % (0.0-2.0); EOSINOPHILS # (AUTO) 0.4 K/uL (0.0-0.4); EOSINOPHILS % (AUTO) 1.4 % (0.0-4.0); HEMATOCRIT 28.4 % (36-54); HEMOGLOBIN 8.8 g/dL (14.0-18.0); LYMPHOCYTES # (AUTO) 1.8 K/uL (1.0-5.5); LYMPHOCYTES % (AUTO) 6.6 % (20.5-51.5); MEAN CORPUSCULAR HEMOGLOBIN 28 pg (27-31); MEAN CORPUSCULAR HGB CONC 31 % (32-36); MEAN CORPUSCULAR VOLUME 90 fL (79.0-98.0); MONOCYTES # (AUTO) 1.6 K/uL (0.0-1.0); MONOCYTES % (AUTO) 5.8 % (1.7-9.3); NEUTROPHILS # (AUTO) 23.8 K/uL (1.8-7.7); NEUTROPHILS % (AUTO) 85.3 % (40.0-70.0); PLATELET COUNT (AUTO) 363 K/uL (130-430); RED BLOOD CELL COUNT(AUTO) 3.15 MIL/uL (4.2-6.2); RED CELL DISTRIBUTION WIDTH 17.2 % (9.0-15.0); WHITE BLOOD COUNT (AUTO) 27.9 K/uL (4.8-10.8)
[2020-03-23 08:02] LABS: CALCIUM 9.1 mg/dL (8.4-11.0); CREATININE 6.01 mg/dL (0.55-1.30)
[2020-03-23 08:37] LABS: POTASSIUM 6.3 mmol/L (3.5-5.1)
[2020-03-23] MEDS: PANTOPRAZOLE SODIUM 40 MG/VIAL (PROTONIX) IVP SCH (09:57)
[2020-03-23] MEDS: LACTOBACILLUS RHAMNOSUS GG 1 CAP CAPSULE PO SCH ×2 (09:57→21:17)
[2020-03-23] MEDS: guaiFENesin ER 600 MG TAB GT SCH ×2 (09:57→21:12)
[2020-03-23] MEDS: AMIODARONE HCL 200 MG TABLET NG SCH ×2 (09:57→21:17)
[2020-03-23] MEDS: amLODIPine BESYLATE 10 MG TABLET NG SCH (09:58)
[2020-03-23] MEDS: GABAPENTIN 300 MG CAPSULE GT SCH ×2 (09:58→21:15)
[2020-03-23] MEDS: FERROUS SULFATE 300 MG/5 ML UDC GT SCH ×2 (09:58→21:11)
[2020-03-23] MEDS: FOLIC ACID 1 MG TABLET GT SCH (09:58)
[2020-03-23] MEDS: QUEtiapine FUMARATE 100 MG TABLET PO SCH ×3 (10:03→21:17)
[2020-03-23] MEDS: BRIMONIDINE TARTRATE 0.2% 5 mL EYE DROPS EACH EYE SCH ×2 (10:24→21:10)
[2020-03-23] MEDS: BALSAM PERU/CASTOR OIL 60 GM OINT...G. TP SCH (10:25)
[2020-03-23] MEDS: NYSTATIN 15 GM TOPICAL POWDER TP SCH ×2 (10:25→21:18)
[2020-03-23] MEDS: DORZOLAMIDE 2% OPHTHALMIC SOLN 5ML OP SCH ×2 (10:25→21:17)
[2020-03-23] MEDS ORDERED: SODIUM POLYSTYRENE SULFONATE 15 GM/60 ML UDBTL NG ONE (12:45)
[2020-03-23] MEDS: ACETYLCYSTEINE 20% 4 ML VIAL (RT) INH SCH (13:50)
[2020-03-23] MEDS ORDERED: ALBUMIN HUMAN 25% 200 ML IV ONE ×2 (14:45→14:59)
[2020-03-23] MEDS ORDERED: HEPARIN SODIUM,PORCINE 5000 UNITS/ML VIAL ONE (15:00)
[2020-03-23] MEDS: EPOETIN ALFA 10,000 UNITS/ML VIAL SUBCUT SCH (17:43)
[2020-03-23] MEDS: ATORVASTATIN 20 MG TABLET GT SCH (21:12)
[2020-03-24] VITALS (35 sets, daily range): BP systolic 76–117
[2020-03-24] MEDS ORDERED: NOREPINEPHRINE 4 MG/4 ML VIAL IV ONE (00:15)
[2020-03-24] MEDS: NOREPINEPHRINE BITARTRATE 4 MG in D5W 250 ML IV PRN ×2 (00:37→22:29)
[2020-03-24] MEDS: MEROPENEM 500 MG in NS 50 ML IV SCH ×2 (01:28→14:11)
[2020-03-24 05:57] LABS: BASOPHILS # (AUTO) 0.2 K/uL (0.0-0.2); BASOPHILS % (AUTO) 0.8 % (0.0-2.0); EOSINOPHILS # (AUTO) 0.4 K/uL (0.0-0.4); EOSINOPHILS % (AUTO) 1.6 % (0.0-4.0); HEMATOCRIT 27.1 % (36-54); HEMOGLOBIN 8.5 g/dL (14.0-18.0); MEAN CORPUSCULAR HEMOGLOBIN 28 pg (27-31); MEAN CORPUSCULAR HGB CONC 31 % (32-36); MEAN CORPUSCULAR VOLUME 89 fL (79.0-98.0); NEUTROPHILS % (AUTO) 81.6 % (40.0-70.0); PLATELET COUNT (AUTO) 351 K/uL (130-430); RED BLOOD CELL COUNT(AUTO) 3.05 MIL/uL (4.2-6.2); RED CELL DISTRIBUTION WIDTH 17.4 % (9.0-15.0); WHITE BLOOD COUNT (AUTO) 24.5 K/uL (4.8-10.8)
[2020-03-24] MEDS: HEPARIN SODIUM,PORCINE 5000 UNITS/ML VIAL SUBCUT SCH ×3 (06:00→22:02)
[2020-03-24] MEDS: INSULIN NPH 100 UNITS/ML 10 ML VIAL SUBCUT SCH (06:41)
[2020-03-24 07:11] LABS: ALBUMIN 3.1 g/dL (3.4-4.8); CALCIUM 8.6 mg/dL (8.4-11.0); CREATININE 5.26 mg/dL (0.55-1.30); POTASSIUM 5.1 mmol/L (3.5-5.1)
[2020-03-24 07:16] LABS: INR 1.1 (0.80-1.20); PROTHROMBIN TIME 10.8 SECS (9.5-12.5)
[2020-03-24] MEDS: ACETYLCYSTEINE 20% 4 ML VIAL (RT) INH SCH ×3 (07:20→21:00)
[2020-03-24 09:04] LABS: TOTAL BILIRUBIN 0.7 mg/dL (0.0-1.0)
[2020-03-24 09:12] LABS: VANCOMYCIN,RANDOM 18.1 ug/mL
[2020-03-24] MEDS: ALBUTEROL MDI INHALATION 8 GM INH INH SCH ×3 (09:32→21:03)
[2020-03-24] MEDS: PANTOPRAZOLE SODIUM 40 MG/VIAL (PROTONIX) IVP SCH (10:14)
[2020-03-24] MEDS: FERROUS SULFATE 300 MG/5 ML UDC GT SCH ×2 (10:14→21:57)
[2020-03-24] MEDS: guaiFENesin ER 600 MG TAB GT SCH ×2 (10:15→21:58)
[2020-03-24] MEDS: GABAPENTIN 300 MG CAPSULE GT SCH ×2 (10:15→21:57)
[2020-03-24] MEDS: LACTOBACILLUS RHAMNOSUS GG 1 CAP CAPSULE PO SCH ×2 (10:15→21:00)
[2020-03-24] MEDS: QUEtiapine FUMARATE 100 MG TABLET PO SCH ×3 (10:15→21:00)
[2020-03-24] MEDS: amLODIPine BESYLATE 10 MG TABLET NG SCH (10:16)
[2020-03-24] MEDS: FOLIC ACID 1 MG TABLET GT SCH (10:16)
[2020-03-24] MEDS: AMIODARONE HCL 200 MG TABLET NG SCH ×2 (10:17→22:07)
[2020-03-24] MEDS: BRIMONIDINE TARTRATE 0.2% 5 mL EYE DROPS EACH EYE SCH ×2 (10:17→22:59)
[2020-03-24] MEDS: DORZOLAMIDE 2% OPHTHALMIC SOLN 5ML OP SCH ×2 (10:18→23:00)
[2020-03-24] MEDS: NYSTATIN 15 GM TOPICAL POWDER TP SCH ×2 (10:18→21:00)
[2020-03-24] MEDS: BALSAM PERU/CASTOR OIL 60 GM OINT...G. TP SCH (10:19)
[2020-03-24] MEDS: INSULIN LISPRO SLIDING SCALE 100 UNITS/ML VIAL (humaLOG) SUBCUT PRN ×2 (12:52→18:07)
[2020-03-24] MEDS: ATORVASTATIN 20 MG TABLET GT SCH (21:58)
[2020-03-25] VITALS (33 sets, daily range): BP systolic 86–139
[2020-03-25] MEDS: MEROPENEM 500 MG in NS 50 ML IV SCH ×2 (01:52→13:53)
[2020-03-25] MEDS: ALBUTEROL MDI INHALATION 8 GM INH INH SCH ×4 (03:03→21:03)
[2020-03-25] MEDS: HEPARIN SODIUM,PORCINE 5000 UNITS/ML VIAL SUBCUT SCH ×3 (05:01→22:34)
[2020-03-25 05:51] LABS: BASOPHILS # (AUTO) 0.4 K/uL (0.0-0.2); BASOPHILS % (AUTO) 1.4 % (0.0-2.0); EOSINOPHILS # (AUTO) 0.6 K/uL (0.0-0.4); EOSINOPHILS % (AUTO) 2.2 % (0.0-4.0); HEMATOCRIT 28.4 % (36-54); HEMOGLOBIN 8.9 g/dL (14.0-18.0); LYMPHOCYTES # (AUTO) 2.1 K/uL (1.0-5.5); LYMPHOCYTES % (AUTO) 7.8 % (20.5-51.5); MEAN CORPUSCULAR HEMOGLOBIN 28 pg (27-31); MEAN CORPUSCULAR HGB CONC 32 % (32-36); MEAN CORPUSCULAR VOLUME 89 fL (79.0-98.0); MONOCYTES # (AUTO) 1.7 K/uL (0.0-1.0); MONOCYTES % (AUTO) 6.2 % (1.7-9.3); NEUTROPHILS # (AUTO) 22.4 K/uL (1.8-7.7); NEUTROPHILS % (AUTO) 82.4 % (40.0-70.0); PLATELET COUNT (AUTO) 357 K/uL (130-430); RED CELL DISTRIBUTION WIDTH 17.5 % (9.0-15.0); WHITE BLOOD COUNT (AUTO) 27.2 K/uL (4.8-10.8)
[2020-03-25 06:09] LABS: CALCIUM 8.7 mg/dL (8.4-11.0); CREATININE 6.72 mg/dL (0.55-1.30)
[2020-03-25] MEDS: INSULIN NPH 100 UNITS/ML 10 ML VIAL SUBCUT SCH ×2 (06:17→17:50)
[2020-03-25] MEDS: INSULIN LISPRO SLIDING SCALE 100 UNITS/ML VIAL (humaLOG) SUBCUT PRN ×3 (06:21→18:31)
[2020-03-25 06:33] LABS: POTASSIUM 6.3 mmol/L (3.5-5.1)
[2020-03-25] MEDS: ACETYLCYSTEINE 20% 4 ML VIAL (RT) INH SCH ×2 (07:52→16:02)
[2020-03-25] MEDS: FERROUS SULFATE 300 MG/5 ML UDC GT SCH ×2 (09:49→20:04)
[2020-03-25] MEDS: guaiFENesin ER 600 MG TAB GT SCH ×2 (09:49→20:05)
[2020-03-25] MEDS: PANTOPRAZOLE SODIUM 40 MG/VIAL (PROTONIX) IVP SCH (09:49)
[2020-03-25] MEDS: BRIMONIDINE TARTRATE 0.2% 5 mL EYE DROPS EACH EYE SCH ×2 (09:49→20:04)
[2020-03-25] MEDS: GABAPENTIN 300 MG CAPSULE GT SCH ×2 (09:49→20:05)
[2020-03-25] MEDS: QUEtiapine FUMARATE 100 MG TABLET PO SCH ×3 (09:50→20:05)
[2020-03-25] MEDS: AMIODARONE HCL 200 MG TABLET NG SCH ×2 (09:50→20:05)
[2020-03-25] MEDS: DORZOLAMIDE 2% OPHTHALMIC SOLN 5ML OP SCH ×2 (09:50→20:05)
[2020-03-25] MEDS: amLODIPine BESYLATE 10 MG TABLET NG SCH (09:50)
[2020-03-25] MEDS: LACTOBACILLUS RHAMNOSUS GG 1 CAP CAPSULE PO SCH ×2 (09:50→20:05)
[2020-03-25] MEDS: FOLIC ACID 1 MG TABLET GT SCH (09:50)
[2020-03-25] MEDS: BALSAM PERU/CASTOR OIL 60 GM OINT...G. TP SCH (09:51)
[2020-03-25] MEDS: NYSTATIN 15 GM TOPICAL POWDER TP SCH ×2 (09:51→20:05)
[2020-03-25] MEDS ORDERED: VANCOMYCIN HCL 500 MG in NS 100 ML IV ONE (10:00)
[2020-03-25] MEDS ORDERED: SODIUM POLYSTYRENE SULFONATE 15 GM/60 ML UDBTL PO ONE (12:00)
[2020-03-25] MEDS ORDERED: ALTEPLASE 2 MG VIAL MC ONE ×2 (17:00→17:45)
[2020-03-25] MEDS: EPOETIN ALFA 10,000 UNITS/ML VIAL SUBCUT SCH (17:00)
[2020-03-25] MEDS: ATORVASTATIN 20 MG TABLET GT SCH (20:04)
[2020-03-26] VITALS (33 sets, daily range): BP systolic 82–140
[2020-03-26] MEDS: INSULIN LISPRO SLIDING SCALE 100 UNITS/ML VIAL (humaLOG) SUBCUT PRN ×4 (00:11→19:39)
[2020-03-26] MEDS: MEROPENEM 500 MG in NS 50 ML IV SCH ×2 (01:35→14:30)
[2020-03-26] MEDS: ACETYLCYSTEINE 20% 4 ML VIAL (RT) INH SCH ×4 (03:57→20:42)
[2020-03-26] MEDS: ALBUTEROL MDI INHALATION 8 GM INH INH SCH ×4 (03:58→20:42)
[2020-03-26 06:57] LABS: BASOPHILS # (AUTO) 0.2 K/uL (0.0-0.2); BASOPHILS % (AUTO) 0.9 % (0.0-2.0); EOSINOPHILS # (AUTO) 0.7 K/uL (0.0-0.4); EOSINOPHILS % (AUTO) 3.2 % (0.0-4.0); HEMATOCRIT 30.6 % (36-54); HEMOGLOBIN 9.6 g/dL (14.0-18.0); LYMPHOCYTES # (AUTO) 2.6 K/uL (1.0-5.5); LYMPHOCYTES % (AUTO) 11.7 % (20.5-51.5); MEAN CORPUSCULAR HEMOGLOBIN 28 pg (27-31); MEAN CORPUSCULAR HGB CONC 31 % (32-36); MEAN CORPUSCULAR VOLUME 89 fL (79.0-98.0); MONOCYTES # (AUTO) 1.5 K/uL (0.0-1.0); MONOCYTES % (AUTO) 6.7 % (1.7-9.3); NEUTROPHILS % (AUTO) 77.5 % (40.0-70.0); PLATELET COUNT (AUTO) 320 K/uL (130-430); RED BLOOD CELL COUNT(AUTO) 3.45 MIL/uL (4.2-6.2); RED CELL DISTRIBUTION WIDTH 17.2 % (9.0-15.0); WHITE BLOOD COUNT (AUTO) 21.9 K/uL (4.8-10.8)
[2020-03-26] MEDS: HEPARIN SODIUM,PORCINE 5000 UNITS/ML VIAL SUBCUT SCH ×3 (07:00→22:22)
[2020-03-26 07:33] LABS: CALCIUM 8.6 mg/dL (8.4-11.0)
[2020-03-26] MEDS: INSULIN NPH 100 UNITS/ML 10 ML VIAL SUBCUT SCH ×2 (07:54→18:44)
[2020-03-26 07:59] LABS: POTASSIUM 6.2 mmol/L (3.5-5.1)
[2020-03-26 08:00] LABS: CREATININE 8.44 mg/dL (0.55-1.30)
[2020-03-26] MEDS: GABAPENTIN 300 MG CAPSULE GT SCH ×2 (09:08→20:17)
[2020-03-26] MEDS: FOLIC ACID 1 MG TABLET GT SCH (09:08)
[2020-03-26] MEDS: guaiFENesin ER 600 MG TAB GT SCH ×2 (09:08→20:17)
[2020-03-26] MEDS: BRIMONIDINE TARTRATE 0.2% 5 mL EYE DROPS EACH EYE SCH ×2 (09:08→20:42)
[2020-03-26] MEDS: FERROUS SULFATE 300 MG/5 ML UDC GT SCH ×2 (09:08→20:17)
[2020-03-26] MEDS: PANTOPRAZOLE SODIUM 40 MG/VIAL (PROTONIX) IVP SCH (09:09)
[2020-03-26] MEDS: NYSTATIN 15 GM TOPICAL POWDER TP SCH ×2 (09:09→20:43)
[2020-03-26] MEDS: LACTOBACILLUS RHAMNOSUS GG 1 CAP CAPSULE PO SCH ×2 (09:09→20:18)
[2020-03-26] MEDS: QUEtiapine FUMARATE 100 MG TABLET PO SCH ×3 (09:09→20:18)
[2020-03-26] MEDS: BALSAM PERU/CASTOR OIL 60 GM OINT...G. TP SCH (09:09)
[2020-03-26] MEDS: amLODIPine BESYLATE 10 MG TABLET NG SCH (09:10)
[2020-03-26] MEDS: AMIODARONE HCL 200 MG TABLET NG SCH ×2 (09:10→20:29)
[2020-03-26] MEDS: DORZOLAMIDE 2% OPHTHALMIC SOLN 5ML OP SCH ×2 (09:11→20:42)
[2020-03-26] MEDS ORDERED: SODIUM POLYSTYRENE SULFONATE 15 GM/60 ML UDBTL PO ONE (10:15)
[2020-03-26] MEDS ORDERED: SODIUM ZIRCONIUM CYCLOSILICATE 10 GM POWD.PACK PO ONE (15:00)
[2020-03-26] MEDS: ATORVASTATIN 20 MG TABLET GT SCH (20:23)
[2020-03-26] MEDS ORDERED: HEPARIN SODIUM,PORCINE 5000 UNITS/ML VIAL ONE (21:47)
[2020-03-26] MEDS: NOREPINEPHRINE BITARTRATE 4 MG in D5W 250 ML IV PRN (22:28)
[2020-03-26] MEDS: DILTIAZEM HCL 25 MG/5 ML VIAL IVP PRN (22:37)
[2020-03-27] VITALS (37 sets, daily range): BP systolic 67–150
[2020-03-27] MEDS: INSULIN LISPRO SLIDING SCALE 100 UNITS/ML VIAL (humaLOG) SUBCUT PRN ×4 (00:12→19:52)
[2020-03-27] MEDS: MEROPENEM 500 MG in NS 50 ML IV SCH ×2 (01:59→13:37)
[2020-03-27] MEDS: ALBUTEROL MDI INHALATION 8 GM INH INH SCH ×4 (03:11→20:27)
[2020-03-27] MEDS ORDERED: HEPARIN SODIUM,PORCINE 5000 UNITS/ML VIAL ONE ×4 (06:26→21:47)
[2020-03-27] MEDS: HEPARIN SODIUM,PORCINE 5000 UNITS/ML VIAL SUBCUT SCH ×3 (06:32→21:44)
[2020-03-27] MEDS: INSULIN NPH 100 UNITS/ML 10 ML VIAL SUBCUT SCH ×2 (06:34→16:02)
[2020-03-27 06:52] LABS: BASOPHILS # (AUTO) 0.1 K/uL (0.0-0.2); BASOPHILS % (AUTO) 0.4 % (0.0-2.0); EOSINOPHILS # (AUTO) 0.8 K/uL (0.0-0.4); EOSINOPHILS % (AUTO) 3.4 % (0.0-4.0); HEMOGLOBIN 9.7 g/dL (14.0-18.0); LYMPHOCYTES # (AUTO) 1.9 K/uL (1.0-5.5); LYMPHOCYTES % (AUTO) 8.2 % (20.5-51.5); MEAN CORPUSCULAR HEMOGLOBIN 28 pg (27-31); MEAN CORPUSCULAR HGB CONC 31 % (32-36); MEAN CORPUSCULAR VOLUME 89 fL (79.0-98.0); MONOCYTES # (AUTO) 1.2 K/uL (0.0-1.0); MONOCYTES % (AUTO) 5.3 % (1.7-9.3); NEUTROPHILS # (AUTO) 19.1 K/uL (1.8-7.7); NEUTROPHILS % (AUTO) 82.7 % (40.0-70.0); PLATELET COUNT (AUTO) 307 K/uL (130-430); RED CELL DISTRIBUTION WIDTH 17.5 % (9.0-15.0); WHITE BLOOD COUNT (AUTO) 23.1 K/uL (4.8-10.8)
[2020-03-27 07:05] LABS: CALCIUM 8.5 mg/dL (8.4-11.0); CREATININE 5.78 mg/dL (0.55-1.30); POTASSIUM 3.4 mmol/L (3.5-5.1); VANCOMYCIN,RANDOM 15.5 ug/mL
[2020-03-27] MEDS: ACETYLCYSTEINE 20% 4 ML VIAL (RT) INH SCH ×3 (08:03→20:27)
[2020-03-27] MEDS: amLODIPine BESYLATE 10 MG TABLET NG SCH (09:00)
[2020-03-27] MEDS ORDERED: VANCOMYCIN HCL 1,000 MG in NS 250 ML IV ONE (10:00)
[2020-03-27] MEDS: FERROUS SULFATE 300 MG/5 ML UDC GT SCH ×2 (10:18→21:37)
[2020-03-27] MEDS: FOLIC ACID 1 MG TABLET GT SCH (10:19)
[2020-03-27] MEDS: LACTOBACILLUS RHAMNOSUS GG 1 CAP CAPSULE PO SCH ×2 (10:19→21:41)
[2020-03-27] MEDS: guaiFENesin ER 600 MG TAB GT SCH ×2 (10:19→21:38)
[2020-03-27] MEDS: QUEtiapine FUMARATE 100 MG TABLET PO SCH ×3 (10:19→21:39)
[2020-03-27] MEDS: GABAPENTIN 300 MG CAPSULE GT SCH ×2 (10:19→21:38)
[2020-03-27] MEDS: PANTOPRAZOLE SODIUM 40 MG/VIAL (PROTONIX) IVP SCH (10:19)
[2020-03-27] MEDS: AMIODARONE HCL 200 MG TABLET NG SCH ×2 (10:20→21:41)
[2020-03-27] MEDS: DORZOLAMIDE 2% OPHTHALMIC SOLN 5ML OP SCH ×2 (10:20→22:19)
[2020-03-27] MEDS: BRIMONIDINE TARTRATE 0.2% 5 mL EYE DROPS EACH EYE SCH ×2 (10:21→22:20)
[2020-03-27] MEDS: BALSAM PERU/CASTOR OIL 60 GM OINT...G. TP SCH (10:21)
[2020-03-27] MEDS: NYSTATIN 15 GM TOPICAL POWDER TP SCH ×2 (10:22→22:20)
[2020-03-27] MEDS: NOREPINEPHRINE BITARTRATE 4 MG in D5W 250 ML IV PRN (12:11)
[2020-03-27] MEDS: DILTIAZEM HCL 25 MG/5 ML VIAL IVP PRN ×2 (15:56→21:48)
[2020-03-27] MEDS: ATORVASTATIN 20 MG TABLET GT SCH (21:39)
[2020-03-28] VITALS (36 sets, daily range): BP systolic 87–131
[2020-03-28] MEDS: INSULIN LISPRO SLIDING SCALE 100 UNITS/ML VIAL (humaLOG) SUBCUT PRN ×4 (00:08→17:45)
[2020-03-28] MEDS: MEROPENEM 500 MG in NS 50 ML IV SCH ×2 (01:42→14:01)
[2020-03-28] MEDS ORDERED: NOREPINEPHRINE 4 MG/4 ML VIAL IV ONE (01:43)
[2020-03-28] MEDS: ALBUTEROL MDI INHALATION 8 GM INH INH SCH ×4 (02:00→20:18)
[2020-03-28] MEDS: HEPARIN SODIUM,PORCINE 5000 UNITS/ML VIAL SUBCUT SCH ×3 (06:16→21:46)
[2020-03-28] MEDS: INSULIN NPH 100 UNITS/ML 10 ML VIAL SUBCUT SCH ×2 (06:17→17:15)
[2020-03-28] MEDS ORDERED: HEPARIN SODIUM,PORCINE 5000 UNITS/ML VIAL ONE (06:24)
[2020-03-28] MEDS: NOREPINEPHRINE BITARTRATE 4 MG in D5W 250 ML IV PRN ×2 (06:38→21:43)
[2020-03-28 06:51] LABS: CALCIUM 8.8 mg/dL (8.4-11.0); CREATININE 4.49 mg/dL (0.55-1.30); POTASSIUM 4.1 mmol/L (3.5-5.1)
[2020-03-28 06:52] LABS: HEMATOCRIT 29.9 % (36-54); HEMOGLOBIN 9.3 g/dL (14.0-18.0); MEAN CORPUSCULAR HEMOGLOBIN 28 pg (27-31); MEAN CORPUSCULAR HGB CONC 31 % (32-36); MEAN CORPUSCULAR VOLUME 88 fL (79.0-98.0); PLATELET COUNT (AUTO) 300 K/uL (130-430); RED BLOOD CELL COUNT(AUTO) 3.39 MIL/uL (4.2-6.2); RED CELL DISTRIBUTION WIDTH 16.9 % (9.0-15.0); WHITE BLOOD COUNT (AUTO) 21.7 K/uL (4.8-10.8)
[2020-03-28] MEDS: ACETYLCYSTEINE 20% 4 ML VIAL (RT) INH SCH ×3 (07:42→20:18)
[2020-03-28] MEDS: FERROUS SULFATE 300 MG/5 ML UDC GT SCH ×2 (08:45→21:41)
[2020-03-28] MEDS: AMIODARONE HCL 200 MG TABLET NG SCH ×2 (08:45→21:42)
[2020-03-28] MEDS: guaiFENesin ER 600 MG TAB GT SCH ×2 (08:45→21:44)
[2020-03-28] MEDS: PANTOPRAZOLE SODIUM 40 MG/VIAL (PROTONIX) IVP SCH (08:45)
[2020-03-28] MEDS: GABAPENTIN 300 MG CAPSULE GT SCH ×2 (08:45→21:42)
[2020-03-28] MEDS: FOLIC ACID 1 MG TABLET GT SCH (08:45)
[2020-03-28] MEDS: LACTOBACILLUS RHAMNOSUS GG 1 CAP CAPSULE PO SCH ×2 (08:46→21:41)
[2020-03-28] MEDS: QUEtiapine FUMARATE 100 MG TABLET PO SCH ×3 (08:46→21:41)
[2020-03-28] MEDS: BRIMONIDINE TARTRATE 0.2% 5 mL EYE DROPS EACH EYE SCH ×2 (09:00→21:45)
[2020-03-28] MEDS: amLODIPine BESYLATE 10 MG TABLET NG SCH (09:00)
[2020-03-28] MEDS: DORZOLAMIDE 2% OPHTHALMIC SOLN 5ML OP SCH ×2 (09:46→21:44)
[2020-03-28] MEDS: NYSTATIN 15 GM TOPICAL POWDER TP SCH ×2 (09:47→21:44)
[2020-03-28] MEDS: BALSAM PERU/CASTOR OIL 60 GM OINT...G. TP SCH (09:47)
[2020-03-28 11:18] LABS: BAND % (MANUAL) 2 % (0-6); BASOPHILS % (MANUAL) 0 % (0-2); EOSINOPHILS % (MANUAL) 4 % (0-7); LYMPHOCYTES % (MANUAL) 3 % (20-46); MONOCYTES % (MANUAL) 6 % (0-11)
[2020-03-28] MEDS: EPOETIN ALFA 10,000 UNITS/ML VIAL SUBCUT SCH (17:13)
[2020-03-28] MEDS: ATORVASTATIN 20 MG TABLET GT SCH (21:42)
[2020-03-29] VITALS (33 sets, daily range): BP systolic 83–145
[2020-03-29] MEDS: MEROPENEM 500 MG in NS 50 ML IV SCH ×2 (01:01→12:52)
[2020-03-29] MEDS: INSULIN LISPRO SLIDING SCALE 100 UNITS/ML VIAL (humaLOG) SUBCUT PRN ×3 (01:07→13:42)
[2020-03-29] MEDS: ALBUTEROL MDI INHALATION 8 GM INH INH SCH ×4 (01:58→19:30)
[2020-03-29] MEDS: HEPARIN SODIUM,PORCINE 5000 UNITS/ML VIAL SUBCUT SCH ×3 (05:36→22:13)
[2020-03-29 06:37] LABS: BASOPHILS # (AUTO) 0.1 K/uL (0.0-0.2); BASOPHILS % (AUTO) 0.7 % (0.0-2.0); EOSINOPHILS # (AUTO) 0.9 K/uL (0.0-0.4); EOSINOPHILS % (AUTO) 4.3 % (0.0-4.0); HEMATOCRIT 27.8 % (36-54); LYMPHOCYTES # (AUTO) 1.6 K/uL (1.0-5.5); LYMPHOCYTES % (AUTO) 7.6 % (20.5-51.5); MEAN CORPUSCULAR HEMOGLOBIN 29 pg (27-31); MEAN CORPUSCULAR HGB CONC 33 % (32-36); MEAN CORPUSCULAR VOLUME 89 fL (79.0-98.0); MONOCYTES # (AUTO) 1.3 K/uL (0.0-1.0); MONOCYTES % (AUTO) 6.3 % (1.7-9.3); NEUTROPHILS # (AUTO) 16.8 K/uL (1.8-7.7); NEUTROPHILS % (AUTO) 81.1 % (40.0-70.0); PLATELET COUNT (AUTO) 289 K/uL (130-430); RED BLOOD CELL COUNT(AUTO) 3.14 MIL/uL (4.2-6.2); RED CELL DISTRIBUTION WIDTH 17.1 % (9.0-15.0); WHITE BLOOD COUNT (AUTO) 20.7 K/uL (4.8-10.8)
[2020-03-29 06:49] LABS: CALCIUM 8.8 mg/dL (8.4-11.0); CREATININE 5.87 mg/dL (0.55-1.30); POTASSIUM 4.8 mmol/L (3.5-5.1)
[2020-03-29] MEDS: ACETYLCYSTEINE 20% 4 ML VIAL (RT) INH SCH ×3 (07:20→20:45)
[2020-03-29] MEDS: INSULIN NPH 100 UNITS/ML 10 ML VIAL SUBCUT SCH ×2 (08:37→17:00)
[2020-03-29] MEDS: FOLIC ACID 1 MG TABLET GT SCH (08:41)
[2020-03-29] MEDS: guaiFENesin ER 600 MG TAB GT SCH ×2 (08:41→22:01)
[2020-03-29] MEDS: FERROUS SULFATE 300 MG/5 ML UDC GT SCH ×2 (08:41→22:00)
[2020-03-29] MEDS: QUEtiapine FUMARATE 100 MG TABLET PO SCH ×3 (08:42→22:09)
[2020-03-29] MEDS: AMIODARONE HCL 200 MG TABLET NG SCH ×2 (08:42→22:06)
[2020-03-29] MEDS: GABAPENTIN 300 MG CAPSULE GT SCH ×2 (08:42→22:01)
[2020-03-29] MEDS: LACTOBACILLUS RHAMNOSUS GG 1 CAP CAPSULE PO SCH ×2 (08:42→22:09)
[2020-03-29] MEDS: PANTOPRAZOLE SODIUM 40 MG/VIAL (PROTONIX) IVP SCH (08:42)
[2020-03-29] MEDS: amLODIPine BESYLATE 10 MG TABLET NG SCH (08:43)
[2020-03-29] MEDS: DORZOLAMIDE 2% OPHTHALMIC SOLN 5ML OP SCH ×2 (09:07→22:09)
[2020-03-29] MEDS: NYSTATIN 15 GM TOPICAL POWDER TP SCH ×2 (09:08→22:10)
[2020-03-29] MEDS: BRIMONIDINE TARTRATE 0.2% 5 mL EYE DROPS EACH EYE SCH ×2 (09:08→22:00)
[2020-03-29] MEDS: BALSAM PERU/CASTOR OIL 60 GM OINT...G. TP SCH (09:09)
[2020-03-29] MEDS ORDERED: HEPARIN SODIUM,PORCINE 5000 UNITS/ML VIAL ONE (14:00)
[2020-03-29] MEDS: DILTIAZEM HCL 25 MG/5 ML VIAL IVP PRN ×2 (14:47→19:40)
[2020-03-29] MEDS: NOREPINEPHRINE BITARTRATE 4 MG in D5W 250 ML IV PRN (17:51)
[2020-03-29] MEDS: PROPOFOL DRIP 100 ML IV PRN (18:50)
[2020-03-29] MEDS ORDERED: VANCOMYCIN HCL 500 MG in NS 100 ML IV ONE (21:00)
[2020-03-29] MEDS: ATORVASTATIN 20 MG TABLET GT SCH (22:00)
[2020-03-30] VITALS (37 sets, daily range): BP systolic 73–131
[2020-03-30] MEDS: INSULIN LISPRO SLIDING SCALE 100 UNITS/ML VIAL (humaLOG) SUBCUT PRN ×3 (01:39→19:23)
[2020-03-30] MEDS: NOREPINEPHRINE BITARTRATE 4 MG in D5W 250 ML IV PRN ×2 (03:03→13:15)
[2020-03-30] MEDS: MEROPENEM 500 MG in NS 50 ML IV SCH ×2 (03:06→13:13)
[2020-03-30] MEDS ORDERED: NOREPINEPHRINE 4 MG/4 ML VIAL IV ONE (03:08)
[2020-03-30] MEDS: HEPARIN SODIUM,PORCINE 5000 UNITS/ML VIAL SUBCUT SCH ×3 (06:21→23:23)
[2020-03-30] MEDS: INSULIN NPH 100 UNITS/ML 10 ML VIAL SUBCUT SCH ×2 (06:35→17:00)
[2020-03-30] MEDS: ACETYLCYSTEINE 20% 4 ML VIAL (RT) INH SCH ×3 (07:15→19:45)
[2020-03-30 07:16] LABS: BASOPHILS # (AUTO) 0.2 K/uL (0.0-0.2); BASOPHILS % (AUTO) 0.8 % (0.0-2.0); EOSINOPHILS # (AUTO) 1.1 K/uL (0.0-0.4); EOSINOPHILS % (AUTO) 5.9 % (0.0-4.0); HEMATOCRIT 27.7 % (36-54); HEMOGLOBIN 8.6 g/dL (14.0-18.0); LYMPHOCYTES # (AUTO) 1.8 K/uL (1.0-5.5); LYMPHOCYTES % (AUTO) 9.1 % (20.5-51.5); MEAN CORPUSCULAR HEMOGLOBIN 27 pg (27-31); MEAN CORPUSCULAR HGB CONC 31 % (32-36); MEAN CORPUSCULAR VOLUME 88 fL (79.0-98.0); MONOCYTES % (AUTO) 5.3 % (1.7-9.3); NEUTROPHILS # (AUTO) 15.2 K/uL (1.8-7.7); NEUTROPHILS % (AUTO) 78.9 % (40.0-70.0); PLATELET COUNT (AUTO) 294 K/uL (130-430); RED BLOOD CELL COUNT(AUTO) 3.14 MIL/uL (4.2-6.2); RED CELL DISTRIBUTION WIDTH 17.4 % (9.0-15.0); WHITE BLOOD COUNT (AUTO) 19.3 K/uL (4.8-10.8)
[2020-03-30 07:26] LABS: ALBUMIN 2.3 g/dL (3.4-4.8); CALCIUM 8.3 mg/dL (8.4-11.0); CREATININE 4.68 mg/dL (0.55-1.30); POTASSIUM 4.6 mmol/L (3.5-5.1); TOTAL BILIRUBIN 0.7 mg/dL (0.0-1.0)
[2020-03-30] MEDS: AMIODARONE HCL 200 MG TABLET NG SCH ×2 (08:37→21:00)
[2020-03-30] MEDS: QUEtiapine FUMARATE 100 MG TABLET PO SCH ×3 (08:37→21:00)
[2020-03-30] MEDS: FOLIC ACID 1 MG TABLET GT SCH (08:37)
[2020-03-30] MEDS: GABAPENTIN 300 MG CAPSULE GT SCH ×2 (08:37→21:00)
[2020-03-30] MEDS: LACTOBACILLUS RHAMNOSUS GG 1 CAP CAPSULE PO SCH ×2 (08:37→21:00)
[2020-03-30] MEDS: FERROUS SULFATE 300 MG/5 ML UDC GT SCH ×2 (08:37→21:00)
[2020-03-30] MEDS: NYSTATIN 15 GM TOPICAL POWDER TP SCH ×2 (08:37→21:00)
[2020-03-30] MEDS: guaiFENesin ER 600 MG TAB GT SCH ×2 (08:37→21:00)
[2020-03-30] MEDS: DORZOLAMIDE 2% OPHTHALMIC SOLN 5ML OP SCH ×2 (08:37→21:00)
[2020-03-30] MEDS: PANTOPRAZOLE SODIUM 40 MG/VIAL (PROTONIX) IVP SCH (08:37)
[2020-03-30] MEDS: BRIMONIDINE TARTRATE 0.2% 5 mL EYE DROPS EACH EYE SCH ×2 (08:37→23:12)
[2020-03-30] MEDS: amLODIPine BESYLATE 10 MG TABLET NG SCH (08:38)
[2020-03-30] MEDS: BALSAM PERU/CASTOR OIL 60 GM OINT...G. TP SCH (09:00)
[2020-03-30] MEDS ORDERED: HEPARIN SODIUM,PORCINE 5000 UNITS/ML VIAL SUBCUT ONE ×2 (11:45)
[2020-03-30] MEDS: DILTIAZEM HCL 25 MG/5 ML VIAL IVP PRN ×2 (12:02→21:45)
[2020-03-30] MEDS: ALBUTEROL MDI INHALATION 8 GM INH INH SCH ×2 (16:15→20:42)
[2020-03-30] MEDS: EPOETIN ALFA 10,000 UNITS/ML VIAL SUBCUT SCH (17:00)
[2020-03-30] MEDS: ATORVASTATIN 20 MG TABLET GT SCH (21:00)
[2020-03-31] VITALS (34 sets, daily range): BP systolic 64–143
[2020-03-31] MEDS: MEROPENEM 500 MG in NS 50 ML IV SCH ×2 (01:58→13:14)
[2020-03-31] MEDS: INSULIN LISPRO SLIDING SCALE 100 UNITS/ML VIAL (humaLOG) SUBCUT PRN ×4 (02:12→18:04)
[2020-03-31] MEDS: ALBUTEROL MDI INHALATION 8 GM INH INH SCH (03:00)
[2020-03-31] MEDS: HEPARIN SODIUM,PORCINE 5000 UNITS/ML VIAL SUBCUT SCH ×3 (06:42→21:31)
[2020-03-31] MEDS: INSULIN NPH 100 UNITS/ML 10 ML VIAL SUBCUT SCH ×2 (06:49→17:52)
[2020-03-31] MEDS: ACETYLCYSTEINE 20% 4 ML VIAL (RT) INH SCH ×2 (07:15→15:15)
[2020-03-31 08:35] LABS: BASOPHILS # (AUTO) 0.2 K/uL (0.0-0.2); BASOPHILS % (AUTO) 0.8 % (0.0-2.0); EOSINOPHILS # (AUTO) 1.3 K/uL (0.0-0.4); EOSINOPHILS % (AUTO) 5.7 % (0.0-4.0); HEMATOCRIT 29.5 % (36-54); HEMOGLOBIN 9.3 g/dL (14.0-18.0); LYMPHOCYTES # (AUTO) 2.2 K/uL (1.0-5.5); LYMPHOCYTES % (AUTO) 9.5 % (20.5-51.5); MEAN CORPUSCULAR HEMOGLOBIN 28 pg (27-31); MEAN CORPUSCULAR HGB CONC 32 % (32-36); MEAN CORPUSCULAR VOLUME 88 fL (79.0-98.0); MONOCYTES # (AUTO) 1.6 K/uL (0.0-1.0); MONOCYTES % (AUTO) 6.8 % (1.7-9.3); NEUTROPHILS # (AUTO) 17.7 K/uL (1.8-7.7); NEUTROPHILS % (AUTO) 77.2 % (40.0-70.0); PLATELET COUNT (AUTO) 311 K/uL (130-430); RED BLOOD CELL COUNT(AUTO) 3.35 MIL/uL (4.2-6.2); RED CELL DISTRIBUTION WIDTH 17.1 % (9.0-15.0); WHITE BLOOD COUNT (AUTO) 22.9 K/uL (4.8-10.8)
[2020-03-31 08:55] LABS: ALBUMIN 2.4 g/dL (3.4-4.8); CALCIUM 8.3 mg/dL (8.4-11.0); CREATININE 4.15 mg/dL (0.55-1.30); POTASSIUM 5.3 mmol/L (3.5-5.1); TOTAL BILIRUBIN 0.7 mg/dL (0.0-1.0); VANCOMYCIN,RANDOM 17.7 ug/mL
[2020-03-31] MEDS: amLODIPine BESYLATE 10 MG TABLET NG SCH (09:00)
[2020-03-31] MEDS: guaiFENesin ER 600 MG TAB GT SCH ×2 (09:18→21:32)
[2020-03-31] MEDS: GABAPENTIN 300 MG CAPSULE GT SCH ×2 (09:18→21:33)
[2020-03-31] MEDS: BRIMONIDINE TARTRATE 0.2% 5 mL EYE DROPS EACH EYE SCH ×2 (09:18→21:36)
[2020-03-31] MEDS: FERROUS SULFATE 300 MG/5 ML UDC GT SCH ×2 (09:18→21:31)
[2020-03-31] MEDS: FOLIC ACID 1 MG TABLET GT SCH (09:18)
[2020-03-31] MEDS: PANTOPRAZOLE SODIUM 40 MG/VIAL (PROTONIX) IVP SCH (09:18)
[2020-03-31] MEDS: LACTOBACILLUS RHAMNOSUS GG 1 CAP CAPSULE PO SCH ×2 (09:19→21:32)
[2020-03-31] MEDS: AMIODARONE HCL 200 MG TABLET NG SCH ×2 (09:19→21:33)
[2020-03-31] MEDS: QUEtiapine FUMARATE 100 MG TABLET PO SCH ×3 (09:19→21:32)
[2020-03-31] MEDS: DORZOLAMIDE 2% OPHTHALMIC SOLN 5ML OP SCH ×2 (09:19→21:36)
[2020-03-31] MEDS: NYSTATIN 15 GM TOPICAL POWDER TP SCH ×2 (09:19→21:35)
[2020-03-31] MEDS: BALSAM PERU/CASTOR OIL 60 GM OINT...G. TP SCH (09:19)
[2020-03-31] MEDS ORDERED: HEPARIN SODIUM,PORCINE 5000 UNITS/ML VIAL MC ONE (12:00)
[2020-03-31] MEDS ORDERED: HEPARIN SODIUM,PORCINE 5000 UNITS/ML VIAL ONE (12:16)
[2020-03-31] MEDS ORDERED: HEPARIN SODIUM,PORCINE 5000 UNITS/ML VIAL IVP ONE ×2 (12:45)
[2020-03-31] MEDS: PROPOFOL DRIP 100 ML IV PRN (16:56)
[2020-03-31] MEDS: NOREPINEPHRINE BITARTRATE 4 MG in D5W 250 ML IV PRN (16:57)
[2020-03-31] MEDS ORDERED: VANCOMYCIN HCL 500 MG in NS 100 ML IV ONE (18:00)
[2020-03-31] MEDS: ATORVASTATIN 20 MG TABLET GT SCH (21:32)
[2020-04-01] VITALS (36 sets, daily range): BP systolic 81–167
[2020-04-01] MEDS: INSULIN LISPRO SLIDING SCALE 100 UNITS/ML VIAL (humaLOG) SUBCUT PRN ×4 (00:51→17:51)
[2020-04-01] MEDS: MEROPENEM 500 MG in NS 50 ML IV SCH ×2 (02:47→13:24)
[2020-04-01] MEDS: HEPARIN SODIUM,PORCINE 5000 UNITS/ML VIAL SUBCUT SCH ×3 (06:17→22:11)
[2020-04-01] MEDS: INSULIN NPH 100 UNITS/ML 10 ML VIAL SUBCUT SCH ×2 (06:21→17:41)
[2020-04-01 06:52] LABS: BASOPHILS # (AUTO) 0.2 K/uL (0.0-0.2); BASOPHILS % (AUTO) 0.8 % (0.0-2.0); EOSINOPHILS # (AUTO) 1.3 K/uL (0.0-0.4); EOSINOPHILS % (AUTO) 6.2 % (0.0-4.0); HEMATOCRIT 27.8 % (36-54); HEMOGLOBIN 8.7 g/dL (14.0-18.0); LYMPHOCYTES % (AUTO) 9.5 % (20.5-51.5); MEAN CORPUSCULAR HEMOGLOBIN 28 pg (27-31); MEAN CORPUSCULAR HGB CONC 31 % (32-36); MEAN CORPUSCULAR VOLUME 88 fL (79.0-98.0); MONOCYTES # (AUTO) 1.3 K/uL (0.0-1.0); MONOCYTES % (AUTO) 6.1 % (1.7-9.3); NEUTROPHILS # (AUTO) 16.5 K/uL (1.8-7.7); PLATELET COUNT (AUTO) 310 K/uL (130-430); RED BLOOD CELL COUNT(AUTO) 3.18 MIL/uL (4.2-6.2); RED CELL DISTRIBUTION WIDTH 17.4 % (9.0-15.0); WHITE BLOOD COUNT (AUTO) 21.4 K/uL (4.8-10.8)
[2020-04-01 07:12] LABS: ALBUMIN 2.2 g/dL (3.4-4.8); CALCIUM 8.4 mg/dL (8.4-11.0); CREATININE 3.82 mg/dL (0.55-1.30); POTASSIUM 5.2 mmol/L (3.5-5.1); TOTAL BILIRUBIN 0.5 mg/dL (0.0-1.0)
[2020-04-01 07:35] LABS: NEUTROPHILS % (AUTO) 77.4 % (40.0-70.0)
[2020-04-01] MEDS: ACETYLCYSTEINE 20% 4 ML VIAL (RT) INH SCH ×2 (07:48→15:13)
[2020-04-01] MEDS: PROPOFOL DRIP 100 ML IV PRN (09:03)
[2020-04-01] MEDS: FERROUS SULFATE 300 MG/5 ML UDC GT SCH ×2 (09:04→22:11)
[2020-04-01] MEDS: GABAPENTIN 300 MG CAPSULE GT SCH ×2 (09:04→22:11)
[2020-04-01] MEDS: QUEtiapine FUMARATE 100 MG TABLET PO SCH ×3 (09:04→22:12)
[2020-04-01] MEDS: amLODIPine BESYLATE 10 MG TABLET NG SCH (09:04)
[2020-04-01] MEDS: FOLIC ACID 1 MG TABLET GT SCH (09:04)
[2020-04-01] MEDS: guaiFENesin ER 600 MG TAB GT SCH ×2 (09:05→22:13)
[2020-04-01] MEDS: LACTOBACILLUS RHAMNOSUS GG 1 CAP CAPSULE PO SCH ×2 (09:05→22:12)
[2020-04-01] MEDS: PANTOPRAZOLE SODIUM 40 MG/VIAL (PROTONIX) IVP SCH (09:05)
[2020-04-01] MEDS: AMIODARONE HCL 200 MG TABLET NG SCH ×2 (09:05→22:12)
[2020-04-01] MEDS: BALSAM PERU/CASTOR OIL 60 GM OINT...G. TP SCH (09:06)
[2020-04-01] MEDS: BRIMONIDINE TARTRATE 0.2% 5 mL EYE DROPS EACH EYE SCH ×2 (09:06→22:14)
[2020-04-01] MEDS: DORZOLAMIDE 2% OPHTHALMIC SOLN 5ML OP SCH ×2 (09:06→22:13)
[2020-04-01] MEDS: NYSTATIN 15 GM TOPICAL POWDER TP SCH ×2 (09:06→22:14)
[2020-04-01] MEDS: ALBUTEROL MDI INHALATION 8 GM INH INH SCH ×2 (09:33→15:13)
[2020-04-01] MEDS: EPOETIN ALFA 10,000 UNITS/ML VIAL SUBCUT SCH (17:34)
[2020-04-01] MEDS: MIDODRINE HCL 5 MG TABLET (PROAMATINE) PO SCH ×2 (17:36→22:13)
[2020-04-01] MEDS: ATORVASTATIN 20 MG TABLET GT SCH (22:12)
[2020-04-02] VITALS (34 sets, daily range): BP systolic 68–114
[2020-04-02] MEDS: INSULIN LISPRO SLIDING SCALE 100 UNITS/ML VIAL (humaLOG) SUBCUT PRN ×3 (00:32→23:13)
[2020-04-02] MEDS: NOREPINEPHRINE BITARTRATE 4 MG in D5W 250 ML IV PRN ×5 (00:33→23:17)
[2020-04-02] MEDS: MEROPENEM 500 MG in NS 50 ML IV SCH ×2 (02:00→13:41)
[2020-04-02] MEDS: HEPARIN SODIUM,PORCINE 5000 UNITS/ML VIAL SUBCUT SCH ×3 (06:10→22:14)
[2020-04-02 06:51] LABS: BASOPHILS # (AUTO) 0.2 K/uL (0.0-0.2); EOSINOPHILS # (AUTO) 0.9 K/uL (0.0-0.4); EOSINOPHILS % (AUTO) 5.2 % (0.0-4.0); HEMATOCRIT 27.6 % (36-54); HEMOGLOBIN 8.6 g/dL (14.0-18.0); LYMPHOCYTES # (AUTO) 0.8 K/uL (1.0-5.5); LYMPHOCYTES % (AUTO) 4.9 % (20.5-51.5); MEAN CORPUSCULAR HEMOGLOBIN 27 pg (27-31); MEAN CORPUSCULAR HGB CONC 31 % (32-36); MEAN CORPUSCULAR VOLUME 87 fL (79.0-98.0); MONOCYTES # (AUTO) 0.8 K/uL (0.0-1.0); MONOCYTES % (AUTO) 4.5 % (1.7-9.3); NEUTROPHILS # (AUTO) 14.3 K/uL (1.8-7.7); NEUTROPHILS % (AUTO) 84.4 % (40.0-70.0); PLATELET COUNT (AUTO) 276 K/uL (130-430); RED BLOOD CELL COUNT(AUTO) 3.16 MIL/uL (4.2-6.2); RED CELL DISTRIBUTION WIDTH 17.1 % (9.0-15.0); WHITE BLOOD COUNT (AUTO) 16.9 K/uL (4.8-10.8)
[2020-04-02] MEDS: INSULIN NPH 100 UNITS/ML 10 ML VIAL SUBCUT SCH ×2 (07:12→16:08)
[2020-04-02 07:39] LABS: CALCIUM 8.2 mg/dL (8.4-11.0); CREATININE 5.5 mg/dL (0.55-1.30); PHOSPHORUS 11.1 mg/dL (2.7-4.5); VANCOMYCIN,RANDOM 19.1 ug/mL
[2020-04-02] MEDS: ACETYLCYSTEINE 20% 4 ML VIAL (RT) INH SCH ×3 (08:00→21:00)
[2020-04-02 09:06] LABS: POTASSIUM 5.8 mmol/L (3.5-5.1)
[2020-04-02] MEDS: BALSAM PERU/CASTOR OIL 60 GM OINT...G. TP SCH (09:08)
[2020-04-02] MEDS: QUEtiapine FUMARATE 100 MG TABLET PO SCH ×3 (09:08→22:05)
[2020-04-02] MEDS: LACTOBACILLUS RHAMNOSUS GG 1 CAP CAPSULE PO SCH ×2 (09:08→22:06)
[2020-04-02] MEDS: MIDODRINE HCL 5 MG TABLET (PROAMATINE) PO SCH ×3 (09:08→22:07)
[2020-04-02] MEDS: DORZOLAMIDE 2% OPHTHALMIC SOLN 5ML OP SCH ×2 (09:08→22:07)
[2020-04-02] MEDS: NYSTATIN 15 GM TOPICAL POWDER TP SCH ×2 (09:08→22:07)
[2020-04-02] MEDS: AMIODARONE HCL 200 MG TABLET NG SCH ×2 (09:09→22:06)
[2020-04-02] MEDS: BRIMONIDINE TARTRATE 0.2% 5 mL EYE DROPS EACH EYE SCH ×2 (09:09→22:08)
[2020-04-02] MEDS: GABAPENTIN 300 MG CAPSULE GT SCH ×2 (09:09→22:05)
[2020-04-02] MEDS: FOLIC ACID 1 MG TABLET GT SCH (09:09)
[2020-04-02] MEDS: guaiFENesin ER 600 MG TAB GT SCH ×2 (09:09→21:00)
[2020-04-02] MEDS: amLODIPine BESYLATE 10 MG TABLET NG SCH (09:09)
[2020-04-02] MEDS: FERROUS SULFATE 300 MG/5 ML UDC GT SCH ×2 (09:09→22:05)
[2020-04-02] MEDS: PANTOPRAZOLE SODIUM 40 MG/VIAL (PROTONIX) IVP SCH (09:09)
[2020-04-02] MEDS: ALBUTEROL MDI INHALATION 8 GM INH INH SCH ×3 (10:09→21:03)
[2020-04-02] MEDS: PROPOFOL DRIP 100 ML IV PRN (13:44)
[2020-04-02] MEDS: SEVELAMER CARBONATE 800 MG TABLET PO SCH (17:49)
[2020-04-02] MEDS: ATORVASTATIN 20 MG TABLET GT SCH (22:05)
[2020-04-03] VITALS (34 sets, daily range): BP systolic 84–157
[2020-04-03] MEDS: MEROPENEM 500 MG in NS 50 ML IV SCH ×2 (01:58→14:46)
[2020-04-03] MEDS: ALBUTEROL MDI INHALATION 8 GM INH INH SCH ×4 (03:03→21:39)
[2020-04-03] MEDS: NOREPINEPHRINE BITARTRATE 4 MG in D5W 250 ML IV PRN ×2 (04:17→18:14)
[2020-04-03] MEDS ORDERED: NOREPINEPHRINE 4 MG/4 ML VIAL IV ONE (04:26)
[2020-04-03] MEDS: HEPARIN SODIUM,PORCINE 5000 UNITS/ML VIAL SUBCUT SCH ×3 (07:30→22:45)
[2020-04-03] MEDS: ACETYLCYSTEINE 20% 4 ML VIAL (RT) INH SCH ×3 (07:35→21:38)
[2020-04-03] MEDS: INSULIN NPH 100 UNITS/ML 10 ML VIAL SUBCUT SCH ×2 (07:48→15:51)
[2020-04-03] MEDS: INSULIN LISPRO SLIDING SCALE 100 UNITS/ML VIAL (humaLOG) SUBCUT PRN (07:52)
[2020-04-03] MEDS: SEVELAMER CARBONATE 800 MG TABLET PO SCH ×3 (08:00→18:14)
[2020-04-03] MEDS: AMIODARONE HCL 200 MG TABLET NG SCH ×2 (09:04→22:41)
[2020-04-03] MEDS: LACTOBACILLUS RHAMNOSUS GG 1 CAP CAPSULE PO SCH ×2 (09:04→22:40)
[2020-04-03] MEDS: GABAPENTIN 300 MG CAPSULE GT SCH ×2 (09:04→22:41)
[2020-04-03] MEDS: DORZOLAMIDE 2% OPHTHALMIC SOLN 5ML OP SCH ×2 (09:04→21:00)
[2020-04-03] MEDS: amLODIPine BESYLATE 10 MG TABLET NG SCH (09:04)
[2020-04-03] MEDS: guaiFENesin ER 600 MG TAB GT SCH ×2 (09:04→22:41)
[2020-04-03] MEDS: FOLIC ACID 1 MG TABLET GT SCH (09:04)
[2020-04-03] MEDS: PANTOPRAZOLE SODIUM 40 MG/VIAL (PROTONIX) IVP SCH (09:04)
[2020-04-03] MEDS: NYSTATIN 15 GM TOPICAL POWDER TP SCH ×2 (09:04→21:00)
[2020-04-03] MEDS: BRIMONIDINE TARTRATE 0.2% 5 mL EYE DROPS EACH EYE SCH ×2 (09:04→21:00)
[2020-04-03] MEDS: MIDODRINE HCL 5 MG TABLET (PROAMATINE) PO SCH ×3 (09:04→22:42)
[2020-04-03] MEDS: FERROUS SULFATE 300 MG/5 ML UDC GT SCH ×2 (09:04→22:40)
[2020-04-03] MEDS: BALSAM PERU/CASTOR OIL 60 GM OINT...G. TP SCH (09:05)
[2020-04-03] MEDS: QUEtiapine FUMARATE 100 MG TABLET PO SCH ×3 (09:05→22:41)
[2020-04-03 09:15] LABS: BASOPHILS # (AUTO) 0.1 K/uL (0.0-0.2); BASOPHILS % (AUTO) 0.4 % (0.0-2.0); CALCIUM 7.6 mg/dL (8.4-11.0); CREATININE 4.04 mg/dL (0.55-1.30); EOSINOPHILS # (AUTO) 0.1 K/uL (0.0-0.4); HEMATOCRIT 24.9 % (36-54); HEMOGLOBIN 7.9 g/dL (14.0-18.0); LYMPHOCYTES # (AUTO) 0.7 K/uL (1.0-5.5); LYMPHOCYTES % (AUTO) 4.4 % (20.5-51.5); MEAN CORPUSCULAR HEMOGLOBIN 28 pg (27-31); MEAN CORPUSCULAR HGB CONC 32 % (32-36); MEAN CORPUSCULAR VOLUME 87 fL (79.0-98.0); MONOCYTES # (AUTO) 0.7 K/uL (0.0-1.0); NEUTROPHILS # (AUTO) 13.4 K/uL (1.8-7.7); NEUTROPHILS % (AUTO) 89.2 % (40.0-70.0); PLATELET COUNT (AUTO) 250 K/uL (130-430); POTASSIUM 4.6 mmol/L (3.5-5.1); RED BLOOD CELL COUNT(AUTO) 2.86 MIL/uL (4.2-6.2)
[2020-04-03] MEDS: PROPOFOL DRIP 100 ML IV PRN (18:15)
[2020-04-03] MEDS ORDERED: HEPARIN SODIUM,PORCINE 5000 UNITS/ML VIAL ONE (20:58)
[2020-04-03] MEDS: ATORVASTATIN 20 MG TABLET GT SCH (22:40)
[2020-04-04] VITALS (31 sets, daily range): BP systolic 76–105
[2020-04-04] MEDS: NOREPINEPHRINE BITARTRATE 4 MG in D5W 250 ML IV PRN ×3 (00:33→23:50)
[2020-04-04] MEDS: INSULIN LISPRO SLIDING SCALE 100 UNITS/ML VIAL (humaLOG) SUBCUT PRN ×5 (00:56→23:58)
[2020-04-04] MEDS: MEROPENEM 500 MG in NS 50 ML IV SCH ×2 (00:57→14:22)
[2020-04-04] MEDS: ALBUTEROL MDI INHALATION 8 GM INH INH SCH ×2 (03:10→20:28)
[2020-04-04] MEDS: INSULIN NPH 100 UNITS/ML 10 ML VIAL SUBCUT SCH ×2 (06:38→17:43)
[2020-04-04] MEDS: HEPARIN SODIUM,PORCINE 5000 UNITS/ML VIAL SUBCUT SCH ×3 (06:40→22:53)
[2020-04-04 08:08] LABS: BASOPHILS # (AUTO) 0.1 K/uL (0.0-0.2); BASOPHILS % (AUTO) 0.7 % (0.0-2.0); EOSINOPHILS # (AUTO) 0.3 K/uL (0.0-0.4); EOSINOPHILS % (AUTO) 1.5 % (0.0-4.0); HEMATOCRIT 25.4 % (36-54); HEMOGLOBIN 8.1 g/dL (14.0-18.0); LYMPHOCYTES # (AUTO) 0.7 K/uL (1.0-5.5); LYMPHOCYTES % (AUTO) 3.9 % (20.5-51.5); MEAN CORPUSCULAR HEMOGLOBIN 28 pg (27-31); MEAN CORPUSCULAR HGB CONC 32 % (32-36); MEAN CORPUSCULAR VOLUME 87 fL (79.0-98.0); MONOCYTES % (AUTO) 5.2 % (1.7-9.3); NEUTROPHILS # (AUTO) 16.2 K/uL (1.8-7.7); NEUTROPHILS % (AUTO) 88.7 % (40.0-70.0); PLATELET COUNT (AUTO) 232 K/uL (130-430); RED BLOOD CELL COUNT(AUTO) 2.92 MIL/uL (4.2-6.2); RED CELL DISTRIBUTION WIDTH 17.4 % (9.0-15.0); WHITE BLOOD COUNT (AUTO) 18.3 K/uL (4.8-10.8)
[2020-04-04] MEDS: ACETYLCYSTEINE 20% 4 ML VIAL (RT) INH SCH ×3 (08:08→20:28)
[2020-04-04 08:23] LABS: CALCIUM 7.8 mg/dL (8.4-11.0); CREATININE 3.83 mg/dL (0.55-1.30); POTASSIUM 5.4 mmol/L (3.5-5.1); VANCOMYCIN,RANDOM 10.8 ug/mL
[2020-04-04] MEDS: FOLIC ACID 1 MG TABLET GT SCH (08:25)
[2020-04-04] MEDS: QUEtiapine FUMARATE 100 MG TABLET PO SCH ×3 (08:25→21:30)
[2020-04-04] MEDS: SEVELAMER CARBONATE 800 MG TABLET PO SCH ×3 (08:25→17:43)
[2020-04-04] MEDS: amLODIPine BESYLATE 10 MG TABLET NG SCH (08:27)
[2020-04-04] MEDS: guaiFENesin ER 600 MG TAB GT SCH ×2 (08:27→21:32)
[2020-04-04] MEDS: FERROUS SULFATE 300 MG/5 ML UDC GT SCH (08:28)
[2020-04-04] MEDS: GABAPENTIN 300 MG CAPSULE GT SCH ×2 (08:28→21:29)
[2020-04-04] MEDS: LACTOBACILLUS RHAMNOSUS GG 1 CAP CAPSULE PO SCH ×2 (08:28→21:30)
[2020-04-04] MEDS: AMIODARONE HCL 200 MG TABLET NG SCH ×2 (08:28→21:31)
[2020-04-04] MEDS: NYSTATIN 15 GM TOPICAL POWDER TP SCH ×2 (08:29→21:30)
[2020-04-04] MEDS: PANTOPRAZOLE SODIUM 40 MG/VIAL (PROTONIX) IVP SCH (08:29)
[2020-04-04] MEDS: BALSAM PERU/CASTOR OIL 60 GM OINT...G. TP SCH (08:29)
[2020-04-04] MEDS: BRIMONIDINE TARTRATE 0.2% 5 mL EYE DROPS EACH EYE SCH ×2 (08:29→21:28)
[2020-04-04] MEDS: MIDODRINE HCL 5 MG TABLET (PROAMATINE) PO SCH ×3 (08:31→21:30)
[2020-04-04] MEDS: ACETAMINOPHEN 650 MG/20.3 ML UDC GT PRN (09:03)
[2020-04-04] MEDS: PROPOFOL DRIP 100 ML IV PRN (09:44)
[2020-04-04] MEDS ORDERED: VANCOMYCIN HCL 500 MG in NS 100 ML IV ONE (11:00)
[2020-04-04] MEDS ORDERED: SODIUM POLYSTYRENE SULFONATE 15 GM/60 ML UDBTL PO ONE (14:15)
[2020-04-04] MEDS ORDERED: NOREPINEPHRINE 4 MG/4 ML VIAL IV ONE (14:22)
[2020-04-04] MEDS ORDERED: MORPHINE I.V. DRIP 100 ML IV PRN (16:45)
[2020-04-04] MEDS ORDERED: COMMUNICATION ORDER XX ONE (16:45)
[2020-04-04] MEDS ORDERED: MIDAZOLAM HCL IVP PRN (17:00)
[2020-04-04] MEDS ORDERED: NS IVP PRN (17:00)
[2020-04-04] MEDS: EPOETIN ALFA 10,000 UNITS/ML VIAL SUBCUT SCH (17:41)
[2020-04-04] MEDS ORDERED: INSULIN Lispro 100 UNITS/ML VIAL (humaLOG) SUBCUT ONE (19:30)
[2020-04-04] MEDS: DORZOLAMIDE 2% OPHTHALMIC SOLN 5ML OP SCH (21:30)
[2020-04-05] VITALS (33 sets, daily range): BP systolic 77–118
[2020-04-05] MEDS: MEROPENEM 500 MG in NS 50 ML IV SCH ×2 (01:55→14:20)
[2020-04-05] MEDS: PROPOFOL DRIP 100 ML IV PRN (05:33)
[2020-04-05] MEDS: NOREPINEPHRINE BITARTRATE 4 MG in D5W 250 ML IV PRN ×5 (05:35→22:06)
[2020-04-05] MEDS: INSULIN NPH 100 UNITS/ML 10 ML VIAL SUBCUT SCH (05:54)
[2020-04-05] MEDS: INSULIN LISPRO SLIDING SCALE 100 UNITS/ML VIAL (humaLOG) SUBCUT PRN ×3 (05:56→18:13)
[2020-04-05] MEDS: HEPARIN SODIUM,PORCINE 5000 UNITS/ML VIAL SUBCUT SCH ×3 (05:57→21:45)
[2020-04-05 07:37] LABS: BASOPHILS # (AUTO) 0.1 K/uL (0.0-0.2); BASOPHILS % (AUTO) 0.7 % (0.0-2.0); EOSINOPHILS # (AUTO) 0.2 K/uL (0.0-0.4); HEMATOCRIT 24.2 % (36-54); HEMOGLOBIN 7.5 g/dL (14.0-18.0); LYMPHOCYTES # (AUTO) 1.2 K/uL (1.0-5.5); LYMPHOCYTES % (AUTO) 7.3 % (20.5-51.5); MEAN CORPUSCULAR HEMOGLOBIN 27 pg (27-31); MEAN CORPUSCULAR HGB CONC 31 % (32-36); MEAN CORPUSCULAR VOLUME 87 fL (79.0-98.0); MONOCYTES # (AUTO) 0.9 K/uL (0.0-1.0); MONOCYTES % (AUTO) 5.5 % (1.7-9.3); NEUTROPHILS # (AUTO) 14.1 K/uL (1.8-7.7); NEUTROPHILS % (AUTO) 85.5 % (40.0-70.0); PLATELET COUNT (AUTO) 216 K/uL (130-430); RED BLOOD CELL COUNT(AUTO) 2.77 MIL/uL (4.2-6.2); RED CELL DISTRIBUTION WIDTH 17.3 % (9.0-15.0); WHITE BLOOD COUNT (AUTO) 16.5 K/uL (4.8-10.8)
[2020-04-05 07:46] LABS: CALCIUM 7.7 mg/dL (8.4-11.0); CREATININE 4.94 mg/dL (0.55-1.30)
[2020-04-05 07:52] LABS: POTASSIUM 5.9 mmol/L (3.5-5.1)
[2020-04-05] MEDS: ACETYLCYSTEINE 20% 4 ML VIAL (RT) INH SCH ×3 (07:56→20:20)
[2020-04-05] MEDS: SEVELAMER CARBONATE 800 MG TABLET PO SCH ×3 (08:10→17:51)
[2020-04-05] MEDS: PANTOPRAZOLE SODIUM 40 MG/VIAL (PROTONIX) IVP SCH (08:15)
[2020-04-05] MEDS: LACTOBACILLUS RHAMNOSUS GG 1 CAP CAPSULE PO SCH ×2 (08:22→21:43)
[2020-04-05] MEDS: FOLIC ACID 1 MG TABLET GT SCH (08:22)
[2020-04-05] MEDS: AMIODARONE HCL 200 MG TABLET NG SCH ×2 (08:22→21:43)
[2020-04-05] MEDS: guaiFENesin ER 600 MG TAB GT SCH ×2 (08:23→21:44)
[2020-04-05] MEDS: GABAPENTIN 300 MG CAPSULE GT SCH ×2 (08:23→21:44)
[2020-04-05] MEDS: QUEtiapine FUMARATE 100 MG TABLET PO SCH ×3 (08:23→21:44)
[2020-04-05] MEDS: amLODIPine BESYLATE 10 MG TABLET NG SCH (08:24)
[2020-04-05] MEDS: MIDODRINE HCL 5 MG TABLET (PROAMATINE) PO SCH ×3 (08:53→21:52)
[2020-04-05] MEDS: BRIMONIDINE TARTRATE 0.2% 5 mL EYE DROPS EACH EYE SCH ×2 (10:15→22:00)
[2020-04-05] MEDS: DORZOLAMIDE 2% OPHTHALMIC SOLN 5ML OP SCH ×2 (10:15→22:00)
[2020-04-05] MEDS: NYSTATIN 15 GM TOPICAL POWDER TP SCH ×2 (10:16→22:00)
[2020-04-05] MEDS: BALSAM PERU/CASTOR OIL 60 GM OINT...G. TP SCH (11:30)
[2020-04-05] MEDS ORDERED: INSULIN NPH 100 UNITS/ML 10 ML VIAL SUBCUT SCH (17:00)
[2020-04-05] MEDS: ALBUTEROL MDI INHALATION 8 GM INH INH SCH (20:20)
[2020-04-05] MEDS ORDERED: ALBUMIN HUMAN 25% 50 ML IV ONE ×2 (20:59→21:02)
[2020-04-05] MEDS ORDERED: HEPARIN SODIUM, PORCINE 10,000 UNITS/ 10 ML VIAL MC ONE (21:30)
[2020-04-06] VITALS (9 sets, daily range): BP systolic 46–124
[2020-04-06] MEDS: INSULIN LISPRO SLIDING SCALE 100 UNITS/ML VIAL (humaLOG) SUBCUT PRN (01:41)
[2020-04-06] MEDS: MEROPENEM 500 MG in NS 50 ML IV SCH (03:05)
[2020-04-06] MEDS: NOREPINEPHRINE BITARTRATE 4 MG in D5W 250 ML IV PRN ×2 (03:06→05:15)
[2020-04-06] MEDS ORDERED: PHENYLEPHRINE HCL 10 MG/ML VIAL (NEOSYNEPHRINE) ONE ×2 (03:42→05:14)
[2020-04-06] MEDS ORDERED: EPINEPHrine JECT 2 MG in NS 230 ML IV PRN (04:00)
[2020-04-06] MEDS ORDERED: ATROPINE SULFATE 1 MG/10 ML SYRINGE IVP ONE ×2 (04:11→05:25)
[2020-04-06] MEDS ORDERED: EPINEPHrine 1 MG/ML AMP ONE (04:12)
[2020-04-06] MEDS: PHENYLEPHRINE HCL 30 MG in NS 247 ML IV PRN ×2 (04:15→05:16)
[2020-04-06] MEDS ORDERED: ACETAMINOPHEN 650 MG/20.3 ML UDC GT PRN (05:00)
[2020-04-06] MEDS ORDERED: SODIUM BICARBONATE 8.4% JECT 50 MEQ/50 ML SYRINGE IVP ONE (05:00)
[2020-04-06] MEDS ORDERED: NOREPINEPHRINE 4 MG/4 ML VIAL IV ONE (05:14)
[2020-04-06] MEDS ORDERED: NS 1000 ML IV.SOLN IV ONE (05:25)
[2020-04-06] MEDS ORDERED: EPINEPHrine JECT 0.1 MG/ML SYR IVP ONE (05:25)
[2020-04-06] MEDS ORDERED: AMIODARONE HCL 150 MG/3ML VIAL IVP ONE (05:25)
[2020-04-06 05:27] LABS: BASOPHILS # (AUTO) 0.3 K/uL (0.0-0.2); BASOPHILS % (AUTO) 1.1 % (0.0-2.0); EOSINOPHILS # (AUTO) 0.2 K/uL (0.0-0.4); EOSINOPHILS % (AUTO) 0.9 % (0.0-4.0); LYMPHOCYTES # (AUTO) 1.5 K/uL (1.0-5.5); LYMPHOCYTES % (AUTO) 5.6 % (20.5-51.5); MEAN CORPUSCULAR HEMOGLOBIN 28 pg (27-31); MEAN CORPUSCULAR HGB CONC 30 % (32-36); MEAN CORPUSCULAR VOLUME 93 fL (79.0-98.0); MONOCYTES # (AUTO) 1.2 K/uL (0.0-1.0); MONOCYTES % (AUTO) 4.7 % (1.7-9.3); NEUTROPHILS # (AUTO) 23.1 K/uL (1.8-7.7); NEUTROPHILS % (AUTO) 87.7 % (40.0-70.0); PLATELET COUNT (AUTO) 189 K/uL (130-430); RED BLOOD CELL COUNT(AUTO) 2.26 MIL/uL (4.2-6.2); RED CELL DISTRIBUTION WIDTH 17.5 % (9.0-15.0); WHITE BLOOD COUNT (AUTO) 26.3 K/uL (4.8-10.8)
[2020-04-06 05:31] LABS: HEMATOCRIT 21.1 % (36-54); HEMOGLOBIN 6.3 g/dL (14.0-18.0)
[2020-04-06 05:44] LABS: CREATININE 3.52 mg/dL (0.55-1.30); POTASSIUM 4.8 mmol/L (3.5-5.1); VANCOMYCIN,RANDOM 9.9 ug/mL
[2020-04-06 05:45] LABS: CALCIUM 6.9 mg/dL (8.4-11.0)
== END 2020-04-06 05:26 | disposition expired | DRG 870 ==
LOC: SED 07:56 → STU 10:07 → EEVIPCON 10:07 → STU 11:26 → SIC 02-06 19:08
PROVIDERS: ADMIT Internal Medicine Infectious Disease; ATTEND Internal Medicine Infectious Disease
PROC: 30233N1 Transfusion of Nonautologous Red Blood Cells into Peripheral Vein, Percutaneous Approach (ICD-10-PCS; 2020-02-05)
PROC: 5A1955Z Respiratory Ventilation, Greater than 96 Consecutive Hours (ICD-10-PCS; principal; 2020-02-07)
PROC: 0BH17EZ Insertion of Endotracheal Airway into Trachea, Via Natural or Artificial Opening (ICD-10-PCS; 2020-02-07)
PROC: 02HV33Z Insertion of Infusion Device into Superior Vena Cava, Percutaneous Approach (ICD-10-PCS; 2020-02-09)
PROC: B548ZZA Ultrasonography of Superior Vena Cava, Guidance (ICD-10-PCS; 2020-02-09)
PROC: 5A1D70Z Performance of Urinary Filtration, Intermittent, Less than 6 Hours Per Day (ICD-10-PCS; 2020-02-09)
PROC: 0BH17EZ Insertion of Endotracheal Airway into Trachea, Via Natural or Artificial Opening (ICD-10-PCS; 2020-02-09)
PROC: 5A1D70Z Performance of Urinary Filtration, Intermittent, Less than 6 Hours Per Day (ICD-10-PCS; 2020-02-11)
PROC: 5A1D70Z Performance of Urinary Filtration, Intermittent, Less than 6 Hours Per Day (ICD-10-PCS; 2020-02-13)
PROC: 5A1D70Z Performance of Urinary Filtration, Intermittent, Less than 6 Hours Per Day (ICD-10-PCS; 2020-02-16)
PROC: 5A1D70Z Performance of Urinary Filtration, Intermittent, Less than 6 Hours Per Day (ICD-10-PCS; 2020-02-18)
PROC: 5A1D70Z Performance of Urinary Filtration, Intermittent, Less than 6 Hours Per Day (ICD-10-PCS; 2020-02-20)
PROC: 5A1D70Z Performance of Urinary Filtration, Intermittent, Less than 6 Hours Per Day (ICD-10-PCS; 2020-02-22)
PROC: 5A1D70Z Performance of Urinary Filtration, Intermittent, Less than 6 Hours Per Day (ICD-10-PCS; 2020-02-24)
PROC: 5A1D70Z Performance of Urinary Filtration, Intermittent, Less than 6 Hours Per Day (ICD-10-PCS; 2020-02-25)
PROC: 02HV33Z Insertion of Infusion Device into Superior Vena Cava, Percutaneous Approach (ICD-10-PCS; 2020-02-26)
PROC: 5A1D70Z Performance of Urinary Filtration, Intermittent, Less than 6 Hours Per Day (ICD-10-PCS; 2020-02-26)
PROC: 02PAX3Z Removal of Infusion Device from Heart, External Approach (ICD-10-PCS; 2020-02-26)
PROC: 02HV33Z Insertion of Infusion Device into Superior Vena Cava, Percutaneous Approach (ICD-10-PCS; 2020-02-27)
PROC: B548ZZA Ultrasonography of Superior Vena Cava, Guidance (ICD-10-PCS; 2020-02-27)
PROC: 5A1D70Z Performance of Urinary Filtration, Intermittent, Less than 6 Hours Per Day (ICD-10-PCS; 2020-02-27)
PROC: 5A1D70Z Performance of Urinary Filtration, Intermittent, Less than 6 Hours Per Day (ICD-10-PCS; 2020-02-29)
PROC: 5A1D70Z Performance of Urinary Filtration, Intermittent, Less than 6 Hours Per Day (ICD-10-PCS; 2020-03-02)
PROC: 5A1D70Z Performance of Urinary Filtration, Intermittent, Less than 6 Hours Per Day (ICD-10-PCS; 2020-03-04)
PROC: 0B9J8ZX Drainage of Left Lower Lung Lobe, Via Natural or Artificial Opening Endoscopic, Diagnostic (ICD-10-PCS; 2020-03-05)
PROC: 0BC18ZZ Extirpation of Matter from Trachea, Via Natural or Artificial Opening Endoscopic (ICD-10-PCS; 2020-03-05)
PROC: 0BCB8ZZ Extirpation of Matter from Left Lower Lobe Bronchus, Via Natural or Artificial Opening Endoscopic (ICD-10-PCS; 2020-03-05)
PROC: 5A1D70Z Performance of Urinary Filtration, Intermittent, Less than 6 Hours Per Day (ICD-10-PCS; 2020-03-06)
PROC: 5A1D70Z Performance of Urinary Filtration, Intermittent, Less than 6 Hours Per Day (ICD-10-PCS; 2020-03-08)
PROC: 5A1D70Z Performance of Urinary Filtration, Intermittent, Less than 6 Hours Per Day (ICD-10-PCS; 2020-03-10)
PROC: 5A1D70Z Performance of Urinary Filtration, Intermittent, Less than 6 Hours Per Day (ICD-10-PCS; 2020-03-12)
PROC: 5A1D70Z Performance of Urinary Filtration, Intermittent, Less than 6 Hours Per Day (ICD-10-PCS; 2020-03-14)
PROC: 5A1D70Z Performance of Urinary Filtration, Intermittent, Less than 6 Hours Per Day (ICD-10-PCS; 2020-03-16)
PROC: 30233K1 Transfusion of Nonautologous Frozen Plasma into Peripheral Vein, Percutaneous Approach (ICD-10-PCS; 2020-03-17)
PROC: 5A1D70Z Performance of Urinary Filtration, Intermittent, Less than 6 Hours Per Day (ICD-10-PCS; 2020-03-18)
PROC: 5A1D70Z Performance of Urinary Filtration, Intermittent, Less than 6 Hours Per Day (ICD-10-PCS; 2020-03-19)
PROC: 5A1D70Z Performance of Urinary Filtration, Intermittent, Less than 6 Hours Per Day (ICD-10-PCS; 2020-03-20)
PROC: 5A1D70Z Performance of Urinary Filtration, Intermittent, Less than 6 Hours Per Day (ICD-10-PCS; 2020-03-22)
PROC: 5A1D70Z Performance of Urinary Filtration, Intermittent, Less than 6 Hours Per Day (ICD-10-PCS; 2020-03-23)
PROC: 5A1D70Z Performance of Urinary Filtration, Intermittent, Less than 6 Hours Per Day (ICD-10-PCS; 2020-03-24)
PROC: 5A1D70Z Performance of Urinary Filtration, Intermittent, Less than 6 Hours Per Day (ICD-10-PCS; 2020-03-26)
PROC: 5A1D70Z Performance of Urinary Filtration, Intermittent, Less than 6 Hours Per Day (ICD-10-PCS; 2020-03-27)
PROC: 5A1D70Z Performance of Urinary Filtration, Intermittent, Less than 6 Hours Per Day (ICD-10-PCS; 2020-03-29)
PROC: 5A1D70Z Performance of Urinary Filtration, Intermittent, Less than 6 Hours Per Day (ICD-10-PCS; 2020-03-30)
PROC: 5A1D70Z Performance of Urinary Filtration, Intermittent, Less than 6 Hours Per Day (ICD-10-PCS; 2020-03-31)
PROC: 5A1D70Z Performance of Urinary Filtration, Intermittent, Less than 6 Hours Per Day (ICD-10-PCS; 2020-04-02)
PROC: 5A1D70Z Performance of Urinary Filtration, Intermittent, Less than 6 Hours Per Day (ICD-10-PCS; 2020-04-03)
PROC: 5A1D70Z Performance of Urinary Filtration, Intermittent, Less than 6 Hours Per Day (ICD-10-PCS; 2020-04-05)
DX: A41.89 Other specified sepsis (principal); E43 Unspecified severe protein-calorie malnutrition; J12.89 Other viral pneumonia; J96.21 Acute and chronic respiratory failure with hypoxia; N18.6 End stage renal disease; R65.21 Severe sepsis with septic shock; U07.1 COVID-19; J15.5 Pneumonia due to Escherichia coli; G92 Toxic encephalopathy; E66.2 Morbid (severe) obesity with alveolar hypoventilation; E87.1 Hypo-osmolality and hyponatremia; I42.9 Cardiomyopathy, unspecified; J44.0 Chronic obstructive pulmonary disease with (acute) lower respiratory infection; J81.1 Chronic pulmonary edema; M86.8X7 Other osteomyelitis, ankle and foot; N17.9 Acute kidney failure, unspecified; I12.0 Hypertensive chronic kidney disease with stage 5 chronic kidney disease or end stage renal disease; Z99.11 Dependence on respirator [ventilator] status; D68.59 Other primary thrombophilia; T82.514A Breakdown (mechanical) of infusion catheter, initial encounter; D63.8 Anemia in other chronic diseases classified elsewhere; D72.819 Decreased white blood cell count, unspecified; E11.22 Type 2 diabetes mellitus with diabetic chronic kidney disease; E11.610 Type 2 diabetes mellitus with diabetic neuropathic arthropathy; E11.65 Type 2 diabetes mellitus with hyperglycemia; E78.5 Hyperlipidemia, unspecified; E86.0 Dehydration; D63.1 Anemia in chronic kidney disease; R00.1 Bradycardia, unspecified; D50.0 Iron deficiency anemia secondary to blood loss (chronic); G89.4 Chronic pain syndrome; I48.91 Unspecified atrial fibrillation; I51.4 Myocarditis, unspecified; L08.9 Local infection of the skin and subcutaneous tissue, unspecified; Y95 Nosocomial condition; A41.51 Sepsis due to Escherichia coli [E. coli]; E87.5 Hyperkalemia; E11.69 Type 2 diabetes mellitus with other specified complication; S91.002A Unspecified open wound, left ankle, initial encounter; X58.XXXA Exposure to other specified factors, initial encounter; Y93.89 Activity, other specified; Y92.89 Other specified places as the place of occurrence of the external cause; Y99.8 Other external cause status; Z99.2 Dependence on renal dialysis; Z79.4 Long term (current) use of insulin; Z68.28 Body mass index [BMI] 28.0-28.9, adult; Z79.899 Other long term (current) drug therapy; Y92.239 Unspecified place in hospital as the place of occurrence of the external cause; Y83.8 Other surgical procedures as the cause of abnormal reaction of the patient, or of later complication, without mention of misadventure at the time of the procedure
CPT/HCPCS: 31624; 36415; 36600; 71045; 76604; 80048; 80053; 80074; 80202-TC; 81000-TC; 82040-TC; 82043; 82272; 82330; 82533; 82570; 82570-TC; 82607; 82728; 82746; 82803-TC; 82962; 83036; 83540-TC; 83550-TC; 83605; 83615-TC; 83735-TC; 83880; 83930-TC; 84100-TC; 84302-TC; 84443-TC; 84484; 84550-TC; 85007; 85018-TC; 85025; 85027; 85044-TC; 85379; 85384-TC; 85610-TC; 85651-TC; 85730-TC; 86140; 86480; 86710; 86886; 86900; 86901; 86920; 87040-TC; 87070-TC; 87081; 87086; 87186-TC; 87205-TC; 88108; 88305; 90935; 90937; 92950; 93005; 93306; 94002; 94003; 94640; 95816; 96365; 99285; A6209; A6550; C1751; C9113; G0378; J0171; J0282; J0330; J0360; J0456; J0461; J0610; J0692; J0696; J0878; J0885; J1100; J1160; J1170; J1265; J1644; J1815; J1940; J2001; J2020; J2060; J2185; J2250; J2270; J2370; J2543; J2704; J2765; J2997; J3010; J3370; J3465; J3490; J7030; J7040; J7042; J7050; J7060; J7608; P9021; P9046; U0002; U0003-CS